=== PATIENT | male | born 1965 | race Hispanic/Latino ===

== ENCOUNTER 2017-05-25 04:36 | Inpatient (IN) | payer SELFPAY ==
--- NOTE | 2017-05-25 04:38 | ED PDOC ---
Psych Transfer Clearance - Clearance Statement Clearance Statement: Reviewed vital signs, lab results and transfer papers. Patient clinically stable for psychiatric admission.
[2017-05-25 04:43] VITALS: O2SAT 98; BMI 23.1
[2017-05-25] MEDS ORDERED: DiphenhydrAMINE 50 mg/ml Inj IM PRN (05:08)
[2017-05-25] MEDS ORDERED: Alum-Mag Hydrox-Simethicone Susp (30 mL) PO PRN (05:08)
[2017-05-25] MEDS ORDERED: Magnesium Hydroxide Susp 30 ml UD PO PRN (05:08)
--- NOTE | 2017-05-25 05:39 | PCM.BM ---
Treatment Plan Problems - Problems identified on initial assessmt Hopelessness/Helplessness Date Initiated: 05/25/17 Time Initiated: 05:37 Assessment reference: NA Status: Active Altered Sleep Patterns Date Initiated: 05/25/17 Time Initiated: 05:38 Assessment reference: NA Status: Active Treatment assets and liabiliti Patient Assests: cooperative, self-reliant, ADL independent, physically healthy Patient Liabilities: financial problems, poor support system, substance abuse, other (homeless) - Milieu Protocol Maintain good personal hygiene: daily Encourage regular showers, every shift Remind patient to perform daily oral care Conduct patient checks and document Observation sheet: Q15 minutes Maintain personal safety: every shift Educate patient to report safety concerns to staff, every shift Monitor environment for contraband/sharps Medication safety: Monitor for expected outcome, potential side effects: every shift, Assess barriers to learning: every shift, Assess readiness for medication education: daily
[2017-05-25 08:03] LABS: CHOLESTEROL 188 mg/dL (0-199)
--- NOTE | 2017-05-25 08:43 | PCM.PSYCH ---
Initial Psychiatric Evaluation - Initial Psychiatric Evaluation Type of Admission: Voluntary Legal Status: Capacity Chief Complaint (in patient's own words): "I am depressed." Patient's Reaction to Hospitalization: HPI: 52 yo male w/ history of heroin abuse, initally presented to [facility] w/ complaints of chest pain, medically cleared by [facility] and now psychiatrically admitted for worsening depression and anxiety in the context of chronic opioid abuse. Patient reports that he uses 1.5 grams ( approx 10 bags) of heroin (snorts) a day. He reports intermittent thoughts of suicide but denies current suicidal ideation/plan intent. +sleep and appetite disturbances +hopelessness. Denies AH/VH/paranoia/delusions/HI. PPHx: Denies history of psychiatric treatment or medications in the past PMHx: Denies acute medical issues FHx: Denies family history of mental illness SHx: +Daily Heroin abuse, +1/2 ppd cig, denies ETOH use, denies other illicit drug use. Completed 2 years of college. 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 Homeleess. From [place]. Current Medications: Active Medications Generic Name Dose Route Start Last Admin Trade Name Freq PRN Reason Stop Dose Admin Acetaminophen 650 mg 05/25/17 05:08 Tylenol 325mg Tab PO Q4 PRN Pain, moderate (4-7) Al Hydrox/Mg Hydrox/Simethicone 30 ml 05/25/17 05:08 Maalox Plus 30 Ml PO Q4 PRN Dyspepsia Clonidine HCl 0.1 mg 05/25/17 09:00 Catapres PO 05/28/17 09:01 Q8 KAILEE Diphenhydramine HCl 50 mg 05/25/17 05:08 Benadryl IM Q6 PRN Extrapyramidal S/S Unable PO Diphenhydramine HCl 50 mg 05/25/17 05:08 Benadryl PO Q6 PRN Extrapyramidal Symptoms Diphenhydramine HCl 50 mg 05/25/17 05:33 Benadryl PO HS PRN Sleep Haloperidol 5 mg 05/25/17 05:08 Haldol PO Q4 PRN Agitation Haloperidol Lactate 5 mg 05/25/17 05:08 Haldol IM Q4 PRN Agitation, Unable to Take PO Ibuprofen 800 mg 05/25/17 05:18 Motrin Tab PO 05/28/17 05:19 Q6 PRN Pain, severe (8-10) Loperamide HCl 2 mg 05/25/17 05:18 Imodium PO Q4H PRN Loose stools Lorazepam 2 mg 05/25/17 05:08 Ativan IM Q4 PRN Anxiety/Agitation,Unable PO Lorazepam 1 mg 05/25/17 05:15 Ativan PO Q4 PRN Agitation Magnesium Hydroxide 30 ml 05/25/17 05:08 Milk Of Magnesia PO HS PRN Constipation Multivitamins/Minerals 1 tab 05/25/17 09:00 Therapeutic-M Tab PO DAILY KAILEE Nicotine 1 patch 05/25/17 09:00 Nicoderm Cq TD DAILY KAILEE Sertraline HCl 50 mg 05/25/17 09:00 Zoloft PO DAILY KAILEE Past Psychiatric History - Past Psychiatric History Previous Treatment History: None Pertinent Medical Hx (Current Medical&Sleep Prob, Allergies): Allergies Allergy/AdvReac Type Severity Reaction Status Date / Time No Known Allergies Allergy Verified 05/25/17 04:38 Omeprazole 40 mg PO DAILY #30 capsule. 05/24/17 Review of Systems - Psychiatric Psychiatric: As Per HPI, Abnormal Sleep Pattern, Anxiety, Change in Appetite, Depression, Difficulty Concentrating, Mood Swings, Suicidal Ideation (Not current, but in the past) Mental Status Examination - Personal Presentation Personal Presentation: Looks stated age - Affect Affect: Constricted - Motor Activity Motor Activity: Calm - Reliability in Providing Information Reliability in Providing Information: Fair - Speech Speech: Organized - Mood Mood: Depressed, Anxious - Formal Thought Process Formal Thought Process: No Impairment - Hallucinations/Delusions Additional comments: Denies AH/VH/paranoia/delusions - Obsessions/Compulsions Obsessions: No Compulsions: No - Cognitive Functions Orientation: Person, Place, Situation, Time Sensorium: Alert Attention/Concentration: Attentive Judgement: Intact, as evidence by: Insight regarding need for hospitalization Memory: Recent intact, as evidence by: Ability to recall events of the day, Remote intact, as evidenced by: Abilit to recall sig. life events, Remote intact , as evidenced by: Ability to recall historical events - Risk Risk: Diminished functioning - Strength & Assets Inventory Strength & Assets Inventory: Cooperative - Limitations Limitations: Other (Homeless, Poverty) DSM 5 DX - DSM 5 DSM 5 Diagnosis: Substance Induced Mood Disorder, Opioid Use Disorder - Recommended/Plan of Treatment Treatment Recommendations and Plan of Treatment: Substance Induced Mood Disorder, Opioid Use Disorder -Admit to psychiatry -Medicine consult -Zoloft 50 mg PO Daily, r/b/se reviewed -Individual and group therapy -PRNs for Opioid w/drawal and Clonidine 0.1 mg Q8hr -Nicotine patch -Disposition planning -Psychoeducation re: chronic substance abuse Projected ELOS: 3-7 days Discharge Plan and Discharge Criteria: Discharge when psychiatrically stable - Smoking Cessation Smoking Cessation Initiated: Yes
[2017-05-25] MEDS: Multivitamin With Minerals Tab PO SCH (09:09)
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
[2017-05-26 06:24] LABS: BASO % 0.3 % (0.0-2.0); EOS % 0.3 % (0.0-4.0); HEMATOCRIT 40.6 % (35.0-51.0); LYMPH # 2.6 K/uL (1.0-4.3); LYMPH % 24.4 % (20.0-40.0); MEAN CELL VOLUME 91.3 fl (80.0-94.0); MEAN CORPUSCULAR HEMOGLOBIN 30.6 pg (27.0-31.0); MEAN CORPUSCULAR HGB CONC 33.5 g/dL (33.0-37.0); MEAN PLATELET VOLUME 7.9 fl (7.2-11.7); MONO # 0.6 K/uL (0.0-0.8); MONO % 5.8 % (0.0-10.0); NEUT # 7.5 K/uL (1.8-7.0); NEUT % 69.2 % (50.0-75.0); RED CELL DISTRIBUTION WIDTH 15.2 % (11.5-14.5); WHITE BLOOD COUNT 10.8 K/uL (4.8-10.8)
[2017-05-26 06:28] LABS: ALB/GLOB RATIO 1.3 (1.0-2.1); ALKALINE PHOSPHATASE 88 U/L (38-126); ALT/SGPT 105 U/L (21-72); AST/SGOT 30 U/L (17-59); BLOOD UREA NITROGEN 16 mg/dl (9-20); CALCIUM 9.4 mg/dL (8.4-10.2); CARBON DIOXIDE 26 mmol/L (22-30); CHLORIDE 107 mmol/L (98-107); GFR AFRICAN-AMERICAN > 60; GLUCOSE,RANDOM 109 mg/dL (75-110); POTASSIUM 4.2 MMOL/L (3.6-5.0); SODIUM 141 mmol/l (132-148); TOTAL PROTEIN 6.7 G/DL (6.3-8.2)
[2017-05-26 06:53] LABS: T4 9.97 ug/dl (5.5-11.0)
[2017-05-26 07:06] LABS: THYROID STIMULATING HORMONE 0.03 mIU/ML (0.46-4.68)
[2017-05-26] MEDS: Multivitamin With Minerals Tab PO SCH (08:17)
[2017-05-26 08:26] VITALS: BP 127/87; PULSE 90
[2017-05-26 09:50] VITALS: RESP 16; TEMP 97.9
== END 2017-05-26 11:00 | disposition home or self-care (01) | DRG 897 ==
LOC: H.ER 04:36 → H.ERHOLD 04:38 → H.PSYCH 04:56
PROVIDERS: ADMIT Psychiatry & Neurology Psychiatry; ATTEND Psychiatry & Neurology Psychiatry
DX: F11.14 Opioid abuse with opioid-induced mood disorder (principal); R45.851 Suicidal ideations; F32.9 Major depressive disorder, single episode, unspecified; F41.9 Anxiety disorder, unspecified; J45.909 Unspecified asthma, uncomplicated; Z87.891 Personal history of nicotine dependence; R07.9 Chest pain, unspecified; F17.210 Nicotine dependence, cigarettes, uncomplicated

== ENCOUNTER 2017-07-18 12:11 | Emergency (ER) | payer MEDICAID ==
[2017-07-18 12:12] VITALS: BMI 23.0
[2017-07-18 12:22] VITALS: BP 117/73; PULSE 86; RESP 16; TEMP 99.3; O2SAT 100
--- NOTE | 2017-07-18 13:00 | ED PDOC ---
HPI: CCC, URI, Sore Throat Time Seen by Provider: 07/18/17 12:16 Chief Complaint (Nursing): Flu-like Symptoms Chief Complaint (Provider): cough History Per: Patient History/Exam Limitations: no limitations Onset/Duration Of Symptoms: Days (x5) Current Symptoms Are (Timing): Still Present Additional Complaint(s): 52 year old male with previous medical history of asthma, who presents to the emergency department with a complaint of productive cough associated with fever , nasal congestion and shortness of breath ongoing for 5 days. Patient stated he took Advil, allergy medications and nasal sprays over the counter for relief. PMD: none provided Past Medical History Reviewed: Historical Data, Nursing Documentation, Vital Signs Vital Signs: Last Vital Signs Temp 99.3 F 07/18/17 12:21 Pulse 86 07/18/17 12:21 Resp 16 07/18/17 12:21 BP 117/73 07/18/17 12:21 Pulse Ox 100 07/18/17 13:12 - Medical History PMH: Anxiety, Asthma, Depression Denies: Diabetes, Hepatitis, HIV, HTN, Chronic Kidney Disease, Seizures, Sexually Transmitted Disease - Surgical History Surgical History: No Surg Hx - Family History Family History: States: Unknown Family Hx - Living Arrangements Living Arrangements: With Family - Social History Current smoker - smoking cessation education provided: Yes Alcohol: None Drugs: Other (heroin) - Immunization History Hx Tetanus Toxoid Vaccination: No Hx Influenza Vaccination: No Hx Pneumococcal Vaccination: No - Home Medications Home Medications: Ambulatory Orders Medication Instructions Recorded Albuterol HFA [Ventolin HFA 90 1 puff IH BID PRN #1 unit 07/18/17 mcg/actuation (8 g)] Azithromycin [Zithromax] 250 mg PO DAILY #6 tab 07/18/17 - Allergies Allergies/Adverse Reactions: Allergies Allergy/AdvReac Type Severity Reaction Status Date / Time No Known Allergies Allergy Verified 06/05/17 19:59 Review of Systems ROS Statement: Except As Marked, All Systems Reviewed And Found Negative Constitutional: Positive for: Fever. Negative for: Chills ENT: Positive for: Nose Congestion Respiratory: Positive for: Cough, Shortness of Breath, Sputum Physical Exam - Reviewed Nursing Documentation Reviewed: Yes Vital Signs Reviewed: Yes - Physical Exam Appears: Positive for: Well, Non-toxic, No Acute Distress Head Exam: Positive for: ATRAUMATIC, NORMAL INSPECTION, NORMOCEPHALIC Skin: Positive for: Normal Color Eye Exam: Positive for: Normal appearance ENT: Positive for: Normal ENT Inspection Neck: Positive for: Normal Cardiovascular/Chest: Positive for: Regular Rate, Rhythm Respiratory: Positive for: Wheezing (diffuse and expiratory). Negative for: Normal Breath Sounds, Decreased Breath Sounds, Respiratory Distress Back: Positive for: Normal Inspection Extremity: Positive for: Normal ROM Neurologic/Psych: Positive for: Alert, Oriented - ECG O2 Sat by Pulse Oximetry: 100 (RA) Pulse Ox Interpretation: Normal Medical Decision Making Medical Decision Making: Initial Impression: Bronchitis Initial Plan: * Duoneb 3ml INH Scribe Attestation: Documented by Yahaira Marti, acting as a scribe for Priscilla Dow PA-C. Provider Scribe Attestation: All medical record entries made by the Scribe were at my direction and personally dictated by me. I have reviewed the chart and agree that the record accurately reflects my personal performance of the history, physical exam, medical decision making, and the department course for this patient. I have also personally directed, reviewed, and agree with the discharge instructions and disposition. Disposition - Clinical Impression Clinical Impression: Acute bronchitis - Patient ED Disposition Is Patient to be Admitted: No Counseled Patient/Family Regarding: Diagnosis, Need For Followup, Rx Given - Disposition Disposition: Routine/Home Disposition Time: 13:36 Condition: GOOD Prescriptions: Albuterol HFA [Ventolin HFA 90 mcg/actuation (8 g)] 1 puff IH BID PRN #1 unit PRN Reason: Wheezing Azithromycin [Zithromax] 250 mg PO DAILY #6 tab Instructions: Acute Bronchitis (ED) Forms: ES[facility] (Niuean)
[2017-07-18] MEDS ORDERED: Albuterol-Ipratrop 3 mg / 0.5 (3 ml) UD INH STA (13:07)
== END 2017-07-18 13:43 | disposition home or self-care (01) ==
LOC: H.ER 12:11
DX: J20.9 Acute bronchitis, unspecified (principal); F17.200 Nicotine dependence, unspecified, uncomplicated; F32.9 Major depressive disorder, single episode, unspecified; F41.9 Anxiety disorder, unspecified; J45.909 Unspecified asthma, uncomplicated

== ENCOUNTER 2017-07-22 17:59 | Inpatient (IN) | payer SELFPAY ==
[2017-07-22 17:59] VITALS: BMI 23.0
[2017-07-22] MEDS ORDERED: Piperacillin/Tazobact 3.375 GM in Sodium Chloride 0.9% 100 ML IVPB STA (19:47)
--- NOTE | 2017-07-22 19:55 | ED PDOC ---
HPI: Wound Care - HPI Time Seen by Provider: 07/22/17 19:38 Chief Complaint (Nursing): Wound Check Chief Complaint (Provider): Wound Check History Per: Patient Exam Limitations: no limitations Onset/Duration Of Symptoms: Days (x 6) Current Symptoms Are (Timing): Still Present Location Of Injury: Left: Arm Quality Of Symptoms: Painful Additional Complaint(s): Yohan Ya is a 52-year-old male with a history of IV drug abuse who presents to the ER for wound check of abscess to the left antecubital region. Patient was admitted at [facility] on 07/19/17 for cellulitis and pneumonia, and underwent I&D and was receiving IV antibiotics. He signed out AMA earlier today because he states he feared losing his job. Patient is now returning for admission. He denies any fever or chills. Patient states he has moderate pain radiating up and down the left arm. PMD: Provider YEIMY Past Medical History Reviewed: Historical Data, Nursing Documentation, Vital Signs Vital Signs: Last Vital Signs Temp 97.8 F 07/22/17 19:10 Pulse 71 07/22/17 19:10 Resp 16 07/22/17 19:10 BP 102/63 07/22/17 19:10 Pulse Ox 100 07/22/17 19:10 - Medical History PMH: Anxiety, Asthma, Depression Denies: Diabetes, Hepatitis, HIV, HTN, Chronic Kidney Disease, Seizures, Sexually Transmitted Disease - Surgical History Surgical History: No Surg Hx - Family History Family History: States: Unknown Family Hx - Social History Current smoker - smoking cessation education provided: Yes Alcohol: None Drugs: Opiates - Immunization History Hx Tetanus Toxoid Vaccination: No Hx Influenza Vaccination: No Hx Pneumococcal Vaccination: No - Home Medications Home Medications: Ambulatory Orders Medication Instructions Recorded Albuterol HFA [Ventolin HFA 90 1 puff IH BID PRN #1 unit 07/18/17 mcg/actuation (8 g)] Azithromycin [Zithromax] 250 mg PO DAILY #6 tab 07/18/17 Amoxicillin/Clavulanate [Augmentin 1 tab PO BID 7 Days #14 tab 07/22/17 875 MG-125 MG] Doxycycline Hyclate 100 mg PO BID 7 Days #14 capsule 07/22/17 - Allergies Allergies/Adverse Reactions: Allergies Allergy/AdvReac Type Severity Reaction Status Date / Time No Known Allergies Allergy Verified 07/22/17 19:10 Review of Systems ROS Statement: Except As Marked, All Systems Reviewed And Found Negative Constitutional: Negative for: Fever, Chills Musculoskeletal: Positive for: Arm Pain (Left) Skin: Positive for: Other (abscess to left antecubital region) Physical Exam - Reviewed Nursing Documentation Reviewed: Yes Vital Signs Reviewed: Yes - Physical Exam Appears: Positive for: Non-toxic, No Acute Distress Head Exam: Positive for: ATRAUMATIC, NORMOCEPHALIC Skin: Positive for: Normal Color, Warm, Dry Eye Exam: Positive for: EOMI, Normal appearance, PERRL Neck: Positive for: Normal, Painless ROM Cardiovascular/Chest: Positive for: Regular Rate, Rhythm. Negative for: Murmur Respiratory: Positive for: Normal Breath Sounds. Negative for: Accessory Muscle Use, Respiratory Distress Pulses-Radial (L): 2+ Pulses-Radial (R): 2+ Extremity: Positive for: Normal ROM, Capillary Refill (< 2 sec), Other (Left arm with packed wound at antecubital region, minimal erythema noted) Neurologic/Psych: Positive for: Alert, Oriented (x3) - Laboratory Results Result Diagrams: 07/22/17 20:10 07/22/17 21:34 - ECG O2 Sat by Pulse Oximetry: 100 (RA) Pulse Ox Interpretation: Normal - Progress ED Course And Treament: CXR: HAZY RLL NOTED Medical Decision Making Medical Decision Making: Reviewed records from ER visit and admission to [facility] 07/19 - 07/22: CXR taken 07/19/17: FINDINGS: LUNGS: There is a patchy infiltrate at the right lung base suspicious for pneumonia PLEURA: No significant pleural effusion identified, no pneumothorax apparent. CARDIOVASCULAR: Normal. OSSEOUS STRUCTURES: No significant abnormalities. VISUALIZED UPPER ABDOMEN: Normal. OTHER FINDINGS: None. IMPRESSION: There is a patchy infiltrate at the right lung base suspicious for pneumonia Soft Tissue US taken 07/21/17: FINDINGS: There is an ovoid heterogeneous hypoechoic soft tissue mass/ collection in the left antecubital fossa. There is vascularity demonstrated within this mass. There is extensive peripheral hypervascularity. The findings are strongly suggestive of a phlegmon. Given the presence of internal vascularity, this does not represent a complex fluid collection at this time. The overall dimensions are 4.8 x 1.5 by 2.5 cm. There is no additional abnormality demonstrated. IMPRESSION: 4.8 cm complex heterogeneous hypoechoic mass with peripheral hypervascularity but some demonstrable internal vascularity, most likely a phlegmon. Time: 19:47 Impression: 52 y/o male with abscess to left antecubital region and pneumonia Initial Plan: * VBG * BMP * CBC w/ differential * Blood culture * Repeat Chest X-Ray * IV Vancomycin and Zosyn * Reevaluation 21:22 Patient will be hospitalized as observation, at Med/Surg, under the service of Dr. Garcia. Scribe Attestation: Documented by Winifred Martin, acting as a scribe for Bo Roberts PA-C Provider Scribe Attestation: All medical record entries made by the Scribe were at my direction and personally dictated by me. I have reviewed the chart and agree that the record accurately reflects my personal performance of the history, physical exam, medical decision making, and the department course for this patient. I have also personally directed, reviewed, and agree with the discharge instructions and disposition. Disposition - Clinical Impression Clinical Impression: Abscess, Pneumonia - Patient ED Disposition Is Patient to be Admitted: Yes - Disposition Disposition: Transfer of Care (hospitalized) Disposition Time: :22 Condition: FAIR - Pt Status Changed To: Hospital Disposition Of: Observation
[2017-07-22 20:16] LABS: VENOUS BLOOD GAS BASE EXCESS -0.8 mmol/L (0.0-2.0); VENOUS BLOOD GAS PCO2 44 mmHg (40-60); VENOUS BLOOD PH 7.36 (7.32-7.43)
[2017-07-22 20:25] LABS: BASO # 0.1 K/uL (0.0-0.2); BASO % 0.6 % (0.0-2.0); EOS # 0.1 K/uL (0.0-0.7); EOS % 0.6 % (0.0-4.0); LYMPH % 16.8 % (20.0-40.0); MEAN CELL VOLUME 91.4 fl (80.0-94.0); MEAN CORPUSCULAR HEMOGLOBIN 30.3 pg (27.0-31.0); MEAN CORPUSCULAR HGB CONC 33.1 g/dL (33.0-37.0); MEAN PLATELET VOLUME 8.2 fl (7.2-11.7); MONO # 0.7 K/uL (0.0-0.8); MONO % 5.5 % (0.0-10.0); NEUT % 76.5 % (50.0-75.0); RED CELL DISTRIBUTION WIDTH 15.3 % (11.5-14.5); WHITE BLOOD COUNT 11.8 K/uL (4.8-10.8)
[2017-07-22 21:54] LABS: BLOOD UREA NITROGEN 12 mg/dl (9-20); CALCIUM 8.8 mg/dL (8.4-10.2); CARBON DIOXIDE 22 mmol/L (22-30); CHLORIDE 110 mmol/L (98-107); GFR AFRICAN-AMERICAN > 60; GLUCOSE,RANDOM 93 mg/dL (75-110); POTASSIUM 4.3 MMOL/L (3.6-5.0); SODIUM 142 mmol/l (132-148)
[2017-07-23] MEDS ORDERED: HYDROmorphone 0.5 mg/0.5 ml ISec IVP PRN (06:14)
[2017-07-23] MEDS ORDERED: Albuterol-Ipratrop 3 mg / 0.5 (3 ml) UD INH PRN (06:17)
--- NOTE | 2017-07-23 08:38 | CP.PCM.HP ---
History of Present Illness - History of Present Illness History of Present Illness: CC: Pain and swelling Left arm History of Present Illness: A 52-year-old male with a history of IV drug abuse who presents to the ER for wound check of abscess to the left antecubital region. Patient was admitted at [facility] on 07/19/17 for cellulitis and pneumonia, and underwent I &D and was receiving IV antibiotics. He signed out yesterday because he states he feared losing his job. Patient is now returning for admission. He denies any fever or chills. Patient states he has moderate pain radiating up and down the left arm. Present on Admission - Present on Admission Any Indicators Present on Admission: No History of DVT/PE: No History of Uncontrolled Diabetes: No Urinary Catheter: No Decubitus Ulcer Present: No Review of Systems - Review of Systems All systems: reviewed and no additional remarkable complaints except Past Patient History - Infectious Disease Hx of Infectious Diseases: None - Past Medical History & Family History Past Medical History?: Yes Past Family History: Reviewed and not pertinent - Past Social History Smoking Status: Heavy Smoker > 10 Cigarettes Daily Alcohol: Social Drugs: Opiates - CARDIAC Hx Cardiac Disorders: No Hx Hypertension: No - PULMONARY Hx Asthma: Yes - NEUROLOGICAL Hx Neurological Disorder: No Hx Seizures: No - HEENT Hx HEENT Problems: No - RENAL Hx Chronic Kidney Disease: No - ENDOCRINE/METABOLIC Hx Endocrine Disorders: No - HEMATOLOGICAL/ONCOLOGICAL Hx Blood Disorders: No Hx AIDS: No Hx Human Immunodeficiency Virus (HIV): No - INTEGUMENTARY Hx Dermatological Problems: No - MUSCULOSKELETAL/RHEUMATOLOGICAL Hx Musculoskeletal Disorders: No Hx Falls: No - GASTROINTESTINAL Hx Gastrointestinal Disorders: No - GENITOURINARY/GYNECOLOGICAL Hx Genitourinary Disorders: No Hx Sexually Transmitted Disorders: No - PSYCHIATRIC Hx Anxiety: Yes Hx Depression: Yes Hx Substance Use: No - SURGICAL HISTORY Hx Surgeries: No - ANESTHESIA Hx Anesthesia: No Meds Allergies/Adverse Reactions: Allergies Allergy/AdvReac Type Severity Reaction Status Date / Time No Known Allergies Allergy Verified 07/22/17 19:10 Physical Exam - Constitutional Appears: Well, In Acute Distress - Head Exam Head Exam: ATRAUMATIC, NORMAL INSPECTION, NORMOCEPHALIC - Eye Exam Eye Exam: EOMI, Normal appearance, PERRL Pupil Exam: NORMAL ACCOMODATION, PERRL - ENT Exam ENT Exam: Mucous Membranes Moist, Normal Exam - Neck Exam Neck exam: Positive for: Normal Inspection - Respiratory Exam Respiratory Exam: Clear to Auscultation Bilateral, NORMAL BREATHING PATTERN. absent: Rales, Wheezes - Cardiovascular Exam Cardiovascular Exam: REGULAR RHYTHM, +S1, +S2 - GI/Abdominal Exam GI & Abdominal Exam: Normal Bowel Sounds, Soft. absent: Tenderness - Extremities Exam Extremities exam: Positive for: normal capillary refill Additional comments: Left Antecubital swelling and tender with I&D site Packed. Erythema and tenderness. - Back Exam Back exam: NORMAL INSPECTION - Neurological Exam Neurological exam: Alert, CN II-XII Intact, Normal Gait, Oriented x3, Reflexes Normal - Psychiatric Exam Psychiatric exam: Normal Affect, Normal Mood - Skin Skin Exam: Dry, Intact, Normal Color, Warm Results - Vital Signs Recent Vital Signs: Last Vital Signs Temp 98.2 F 07/23/17 08:14 Pulse 61 07/23/17 08:14 Resp 20 07/23/17 08:14 BP 103/61 07/23/17 08:14 Pulse Ox 94 L 07/23/17 08:14 - Labs Result Diagrams: 07/22/17 20:10 07/22/17 21:34 Labs: Laboratory Results - last 24 hr 07/22/17 07/22/17 07/22/17 20:10 20:10 21:34 WBC 11.8 H RBC 4.27 L Hgb 12.9 Hct 39.0 MCV 91.4 MCH 30.3 MCHC 33.1 RDW 15.3 H Plt Count 299 MPV 8.2 Neut % (Auto) 76.5 H Lymph % (Auto) 16.8 L [place] % (Auto) 5.5 Eos % (Auto) 0.6 Baso % (Auto) 0.6 Neut # 9.0 H Lymph # 2.0 Evans # 0.7 Eos # 0.1 Baso # 0.1 pO2 70 H VBG pH 7.36 VBG pCO2 44 VBG HCO3 24.2 VBG Total CO2 26.3 VBG O2 Sat (Calc) 95.1 H VBG Base Excess -0.8 L VBG Potassium 8.3 H* Sodium 135.0 142 Chloride 110.0 H 110 H Glucose 101 Lactate 1.2 FiO2 21.0 Crit Value Called To Dr jeffery kaplan Crit Value Called By Rt Crit Value Read Back Y Blood Gas Notified Time 2014 Potassium 4.3 Carbon Dioxide 22 Anion Gap 14 BUN 12 Creatinine 0.7 L Est GFR ( Amer) > 60 Est GFR (Non-Af Amer) > 60 Random Glucose 93 Calcium 8.8 Venous Blood Potassium 8.3 H* - EKG Data EKG Interpreted by: Myself EKG shows normal: Sinus rhythm, [place], Intervals, QRS complexes, ST-T waves Rate: Normal - Imaging and Cardiology Chest x-ray Status: Report reviewed by me Additional comment: Right LL Infiltrates. Assessment & Plan (1) Abscess Assessment and Plan: S/P I&D at [facility], and Packing still inplace IVD Use ?PNA IVF IV Vancomycin/Cefepime Pain medication PRN TTE R/o Vegetation ID and Surgery Consult Status: Acute
[2017-07-23] MEDS: Pantoprazole 40 mg EC Tab PO SCH (09:50)
--- NOTE | 2017-07-23 10:29 | RAD ---
HISTORY: pneumonia COMPARISON: No prior. TECHNIQUE: Chest PA and lateral FINDINGS: LUNGS: Right lower lobe infiltrate. PLEURA: No significant pleural effusion identified. No pneumothorax apparent. CARDIOVASCULAR: Normal. OSSEOUS STRUCTURES: No significant abnormalities. VISUALIZED UPPER ABDOMEN: Normal. OTHER FINDINGS: None. IMPRESSION: Right lower lobe infiltrate.
[2017-07-23] MEDS: Cefepime 1 GM in Sodium Chloride 0.9% 100 ML IVPB SCH ×2 (10:56→20:55)
--- NOTE | 2017-07-23 11:13 | CP.PCM.CON ---
<Bonnie Price - Last Filed: 07/23/17 13:21> History of Present Illness - History of Present Illness History of Present Illness: General surgery consult note for Dr. Mya Price, PGY-1 Pt S & E at bedside. 52M w/PMH sig for IVDU consulted for cellulitis s/p I & D one day prior to admission. Pt recently at [facility] with bedside I & D on 07/22 with small amount of packing placed. Pt then AMA'd from facility. Pt presents to [facility] for evaluation of wound, wound care and pain control. Pt states he had a subjective fever overnight, could not afford PO Abx and wanted to have the wound cared for in the hospital. Denies other complaints. PMH: Hep C, IVDU, asthma PSH: Bedside I & D at [facility] (07/22) w/packing placed All: NKDA SH: Admits to tobacco #4-5 cigarettes daily x 20 yrs, admits to heroin use, denies ETOH use Review of Systems - Review of Systems All systems: reviewed and no additional remarkable complaints except - Constitutional Constitutional: Fever (subjective). absent: Chills - Cardiovascular Cardiovascular: absent: Chest Pain - Respiratory Respiratory: absent: Cough - Gastrointestinal Gastrointestinal: absent: Nausea, Vomiting - Integumentary Integumentary: Skin Pain, Swelling, Wounds - Psychiatric Psychiatric: absent: Change in Appetite Past Patient History - Infectious Disease Hx of Infectious Diseases: None - Past Medical History & Family History Past Medical History?: Yes - Past Social History Smoking Status: Heavy Smoker > 10 Cigarettes Daily - CARDIAC Hx Cardiac Disorders: No Hx Hypertension: No - PULMONARY Hx Asthma: Yes - NEUROLOGICAL Hx Neurological Disorder: No Hx Seizures: No - HEENT Hx HEENT Problems: No - RENAL Hx Chronic Kidney Disease: No - ENDOCRINE/METABOLIC Hx Endocrine Disorders: No - HEMATOLOGICAL/ONCOLOGICAL Hx Blood Disorders: No Hx AIDS: No Hx Human Immunodeficiency Virus (HIV): No - INTEGUMENTARY Hx Dermatological Problems: No - MUSCULOSKELETAL/RHEUMATOLOGICAL Hx Musculoskeletal Disorders: No Hx Falls: No - GASTROINTESTINAL Hx Gastrointestinal Disorders: No - GENITOURINARY/GYNECOLOGICAL Hx Genitourinary Disorders: No Hx Sexually Transmitted Disorders: No - PSYCHIATRIC Hx Anxiety: Yes Hx Depression: Yes Hx Substance Use: No - SURGICAL HISTORY Hx Surgeries: No - ANESTHESIA Hx Anesthesia: No Meds Allergies/Adverse Reactions: Allergies Allergy/AdvReac Type Severity Reaction Status Date / Time No Known Allergies Allergy Verified 07/22/17 19:10 - Medications Medications: Current Medications Albuterol/Ipratropium (Duoneb 3 Mg/0.5 Mg (3 Ml) Ud) 3 ml INH RQ6 PRN PRN Reason: Shortness of Breath Enoxaparin Sodium (Lovenox) 40 mg SC DAILY KAILEE PRN Reason: Protocol Hydromorphone HCl (Dilaudid) 1 mg IVP Q4 PRN PRN Reason: Pain, severe (8-10) Last Admin: 07/23/17 09:50 Dose: 1 mg Cefepime HCl 1 gm/ Sodium (Chloride) 100 mls @ 100 mls/hr IVPB Q12 KAILEE PRN Reason: Protocol Last Admin: 07/23/17 10:56 Dose: 100 mls/hr Vancomycin HCl 1 gm/ Sodium (Chloride) 250 mls @ 166.667 mls/hr IVPB Q12 KAILEE PRN Reason: Protocol Ketorolac Tromethamine (Toradol) 30 mg IVP Q6 PRN PRN Reason: Pain, moderate (4-7) Pantoprazole Sodium (Protonix Ec Tab) 40 mg PO DAILY [facility] Last Admin: 07/23/17 09:50 Dose: 40 mg Physical Exam - Constitutional Appears: Non-toxic, No Acute Distress - Head Exam Head Exam: ATRAUMATIC, NORMAL INSPECTION, NORMOCEPHALIC - Eye Exam Eye Exam: EOMI, Normal appearance - ENT Exam ENT Exam: Mucous Membranes Moist, Normal Exam - Neck Exam Neck exam: Positive for: Full Rom - Respiratory Exam Respiratory Exam: NORMAL BREATHING PATTERN - Cardiovascular Exam Cardiovascular Exam: REGULAR RHYTHM, +S1, +S2 - GI/Abdominal Exam GI & Abdominal Exam: Soft. absent: Tenderness - Extremities Exam Extremities exam: Positive for: tenderness. Negative for: normal inspection ( Left antecubital fossa with small incision, induration, no fluctuance, some erythema, some tenderness upon palpation. Dressing with scant serous strike through. ) - Neurological Exam Neurological exam: Alert, CN II-XII Intact, Oriented x3 - Psychiatric Exam Psychiatric exam: Normal Affect, Normal Mood - Skin Skin Exam: Dry, Warm Results - Vital Signs Recent Vital Signs: Last Vital Signs Temp 98.2 F 07/23/17 08:14 Pulse 61 07/23/17 08:14 Resp 20 07/23/17 08:14 BP 103/61 07/23/17 08:14 Pulse Ox 94 L 07/23/17 08:14 - Labs Result Diagrams: 07/22/17 20:10 07/22/17 21:34 Labs: Laboratory Results - last 24 hr 07/22/17 07/22/17 07/22/17 20:10 20:10 21:34 WBC 11.8 H RBC 4.27 L Hgb 12.9 Hct 39.0 MCV 91.4 MCH 30.3 MCHC 33.1 RDW 15.3 H Plt Count 299 MPV 8.2 Neut % (Auto) 76.5 H Lymph % (Auto) 16.8 L [place] % (Auto) 5.5 Eos % (Auto) 0.6 Baso % (Auto) 0.6 Neut # 9.0 H Lymph # 2.0 [place] # 0.7 Eos # 0.1 Baso # 0.1 pO2 70 H VBG pH 7.36 VBG pCO2 44 VBG HCO3 24.2 VBG Total CO2 26.3 VBG O2 Sat (Calc) 95.1 H VBG Base Excess -0.8 L VBG Potassium 8.3 H* Sodium 135.0 142 Chloride 110.0 H 110 H Glucose 101 Lactate 1.2 FiO2 21.0 Crit Value Called To Dr jeffery kaplan Crit Value Called By Rt Crit Value Read Back Y Blood Gas Notified Time 2014 Potassium 4.3 Carbon Dioxide 22 Anion Gap 14 BUN 12 Creatinine 0.7 L Est GFR ( Amer) > 60 Est GFR (Non-Af Amer) > 60 Random Glucose 93 Calcium 8.8 Venous Blood Potassium 8.3 H* Assessment & Plan - Assessment and Plan (Free Text) Assessment: 52M w/PMH sig for IVDU s/p I & D POD#1 consulted for wound care/assessment, currently stable. Plan: Cont Abx Packing removed Dressing changed Pain control Warm compresses to area No surgical intervention at this time Thank you for this consult Please re-consult as needed COLE attending Dee, PGY-1 - Date & Time Date: 07/23/17 Time: 11:15 <[address] - Last Filed: 07/23/17 13:26> History of Present Illness - History of Present Illness History of Present Illness: Patient was seen and examined at the bedside. Agree with resident's note above. Meds - Medications Medications: Current Medications Albuterol/Ipratropium (Duoneb 3 Mg/0.5 Mg (3 Ml) Ud) 3 ml INH RQ6 PRN PRN Reason: Shortness of Breath Enoxaparin Sodium (Lovenox) 40 mg SC DAILY KAILEE PRN Reason: Protocol Last Admin: 07/23/17 11:19 Dose: 40 mg Hydromorphone HCl (Dilaudid) 1 mg IVP Q4 PRN PRN Reason: Pain, severe (8-10) Last Admin: 07/23/17 09:50 Dose: 1 mg Cefepime HCl 1 gm/ Sodium (Chloride) 100 mls @ 100 mls/hr IVPB Q12 KAILEE PRN Reason: Protocol Last Admin: 07/23/17 10:56 Dose: 100 mls/hr Vancomycin HCl 1 gm/ Sodium (Chloride) 250 mls @ 166.667 mls/hr IVPB Q12 KAILEE PRN Reason: Protocol Last Admin: 07/23/17 12:21 Dose: 166.667 mls/hr Ketorolac Tromethamine (Toradol) 30 mg IVP Q6 PRN PRN Reason: Pain, moderate (4-7) Pantoprazole Sodium (Protonix Ec Tab) 40 mg PO DAILY [facility] Last Admin: 07/23/17 09:50 Dose: 40 mg Results - Vital Signs Recent Vital Signs: Last Vital Signs Temp 98.2 F 07/23/17 08:14 Pulse 61 07/23/17 08:14 Resp 20 07/23/17 08:14 BP 103/61 07/23/17 08:14 Pulse Ox 94 L 07/23/17 08:14 - Labs Result Diagrams: 07/22/17 20:10 07/22/17 21:34 Labs: Laboratory Results - last 24 hr 07/22/17 07/22/17 07/22/17 20:10 20:10 21:34 WBC 11.8 H RBC 4.27 L Hgb 12.9 Hct 39.0 MCV 91.4 MCH 30.3 MCHC 33.1 RDW 15.3 H Plt Count 299 MPV 8.2 Neut % (Auto) 76.5 H Lymph % (Auto) 16.8 L [place] % (Auto) 5.5 Eos % (Auto) 0.6 Baso % (Auto) 0.6 Neut # 9.0 H Lymph # 2.0 [place] # 0.7 Eos # 0.1 Baso # 0.1 pO2 70 H VBG pH 7.36 VBG pCO2 44 VBG HCO3 24.2 VBG Total CO2 26.3 VBG O2 Sat (Calc) 95.1 H VBG Base Excess -0.8 L VBG Potassium 8.3 H* Sodium 135.0 142 Chloride 110.0 H 110 H Glucose 101 Lactate 1.2 FiO2 21.0 Crit Value Called To Dr jeffery kaplan Crit Value Called By Rt Crit Value Read Back Y Blood Gas Notified Time 2014 Potassium 4.3 Carbon Dioxide 22 Anion Gap 14 BUN 12 Creatinine 0.7 L Est GFR ( Amer) > 60 Est GFR (Non-Af Amer) > 60 Random Glucose 93 Calcium 8.8 Venous Blood Potassium 8.3 H* Assessment & Plan - Assessment and Plan (Free Text) Plan: - No further general surgery intervention at present time - General surgery will sign off - Please re-consult as needed
[2017-07-23] MEDS: Enoxaparin 40 mg Syringe SC SCH (11:19)
--- NOTE | 2017-07-23 11:58 | CP.PCM.CON ---
History of Present Illness - History of Present Illness History of Present Illness: Infectious Disease Consultation Note- asked to see this patient at the request of for left arm abscess. HPI- medical history obtained mostly from the chart ( patient denies any PMH ) as per medical chart notes pt. has h/o IVDU and Hep C and was at [facility] with left forearm abscess s/p I and D there and small packing was placed and apparently pt. signed out AMA from there and now presents to [facility] for wound care and antibiotics and pain control. when I asked him about any injury to the area he denies it and just states got infection in left forearm. Denies any fever or chills. He denies ever having any other skin infections. PMH: Hep C, IVDU, asthma PSH: Bedside I & D at [facility] (07/22) w/packing placed All: NKDA SH: Admits to tobacco #4-5 cigarettes daily x 20 yrs, heroin use, denies ETOH use Review of Systems - Review of Systems Review of Systems: ROS- denies any fever or chills, denies any cough, denies any sob, denies any chest pain, denies any abd. pain, denies any n/v, denies any diarrhea, denies any dysurea c/o left forearm pain and redness and swelling Past Patient History - Infectious Disease Hx of Infectious Diseases: None - Past Medical History & Family History Past Medical History?: Yes - Past Social History Smoking Status: Heavy Smoker > 10 Cigarettes Daily - CARDIAC Hx Cardiac Disorders: No Hx Hypertension: No - PULMONARY Hx Asthma: Yes - NEUROLOGICAL Hx Neurological Disorder: No Hx Seizures: No - HEENT Hx HEENT Problems: No - RENAL Hx Chronic Kidney Disease: No - ENDOCRINE/METABOLIC Hx Endocrine Disorders: No - HEMATOLOGICAL/ONCOLOGICAL Hx Blood Disorders: No - INTEGUMENTARY Hx Dermatological Problems: No - MUSCULOSKELETAL/RHEUMATOLOGICAL Hx Musculoskeletal Disorders: No Hx Falls: No - GASTROINTESTINAL Hx Gastrointestinal Disorders: No - GENITOURINARY/GYNECOLOGICAL Hx Genitourinary Disorders: No Hx Sexually Transmitted Disorders: No - PSYCHIATRIC Hx Anxiety: Yes Hx Depression: Yes Hx Substance Use: No - SURGICAL HISTORY Hx Surgeries: No - ANESTHESIA Hx Anesthesia: No Meds Allergies/Adverse Reactions: Allergies Allergy/AdvReac Type Severity Reaction Status Date / Time No Known Allergies Allergy Verified 07/22/17 19:10 - Medications Medications: Current Medications Albuterol/Ipratropium (Duoneb 3 Mg/0.5 Mg (3 Ml) Ud) 3 ml INH RQ6 PRN PRN Reason: Shortness of Breath Enoxaparin Sodium (Lovenox) 40 mg SC DAILY KAILEE PRN Reason: Protocol Last Admin: 07/23/17 11:19 Dose: 40 mg Hydromorphone HCl (Dilaudid) 1 mg IVP Q4 PRN PRN Reason: Pain, severe (8-10) Last Admin: 07/23/17 09:50 Dose: 1 mg Cefepime HCl 1 gm/ Sodium (Chloride) 100 mls @ 100 mls/hr IVPB Q12 KAILEE PRN Reason: Protocol Last Admin: 07/23/17 10:56 Dose: 100 mls/hr Vancomycin HCl 1 gm/ Sodium (Chloride) 250 mls @ 166.667 mls/hr IVPB Q12 KAILEE PRN Reason: Protocol Ketorolac Tromethamine (Toradol) 30 mg IVP Q6 PRN PRN Reason: Pain, moderate (4-7) Pantoprazole Sodium (Protonix Ec Tab) 40 mg PO DAILY [facility] Last Admin: 07/23/17 09:50 Dose: 40 mg Physical Exam - Constitutional Appears: Non-toxic, No Acute Distress - Head Exam Head Exam: ATRAUMATIC - Eye Exam Eye Exam: EOMI, PERRL - ENT Exam ENT Exam: Normal Oropharynx - Neck Exam Neck exam: Positive for: Full Rom - Respiratory Exam Respiratory Exam: Clear to Auscultation Bilateral, NORMAL BREATHING PATTERN - Cardiovascular Exam Cardiovascular Exam: RRR, +S1, +S2 - GI/Abdominal Exam GI & Abdominal Exam: Normal Bowel Sounds, Soft Additional comments: NT, ND - Extremities Exam Additional comments: left forearm region with area of about 4 x 3 cm swelling, erythema central small opening ( I and D site) , no packing seen no pus seen + tenderness to touch can flex elbow w/o any limitation of ROM - Neurological Exam Neurological exam: Alert, Oriented x3 Results - Vital Signs Recent Vital Signs: Last Vital Signs Temp 98.2 F 07/23/17 08:14 Pulse 61 07/23/17 08:14 Resp 20 07/23/17 08:14 BP 103/61 07/23/17 08:14 Pulse Ox 94 L 07/23/17 08:14 - Labs Result Diagrams: 07/22/17 20:10 07/22/17 21:34 Labs: Laboratory Results - last 24 hr 07/22/17 07/22/17 07/22/17 20:10 20:10 21:34 WBC 11.8 H RBC 4.27 L Hgb 12.9 Hct 39.0 MCV 91.4 MCH 30.3 MCHC 33.1 RDW 15.3 H Plt Count 299 MPV 8.2 Neut % (Auto) 76.5 H Lymph % (Auto) 16.8 L [place] % (Auto) 5.5 Eos % (Auto) 0.6 Baso % (Auto) 0.6 Neut # 9.0 H Lymph # 2.0 [place] # 0.7 Eos # 0.1 Baso # 0.1 pO2 70 H VBG pH 7.36 VBG pCO2 44 VBG HCO3 24.2 VBG Total CO2 26.3 VBG O2 Sat (Calc) 95.1 H VBG Base Excess -0.8 L VBG Potassium 8.3 H* Sodium 135.0 142 Chloride 110.0 H 110 H Glucose 101 Lactate 1.2 FiO2 21.0 Crit Value Called To Dr jeffery kaplan Crit Value Called By Rt Crit Value Read Back Y Blood Gas Notified Time 2014 Potassium 4.3 Carbon Dioxide 22 Anion Gap 14 BUN 12 Creatinine 0.7 L Est GFR ( Amer) > 60 Est GFR (Non-Af Amer) > 60 Random Glucose 93 Calcium 8.8 Venous Blood Potassium 8.3 H* Microbiology 06/05/17 21:30 Blood Blood Culture - Final 06/05/17 21:30 Blood Gram Stain - Final NO GROWTH AFTER 5 DAYS TEST NOT PERFORMED 07/19/17 22:55 Blood Blood Culture - Preliminary 07/19/17 22:55 Blood NO GROWTH AFTER 3 DAYS 07/19/17 22:40 Blood Blood Culture - Preliminary 07/19/17 22:40 Blood NO GROWTH AFTER 3 DAYS Accession No. : [id number] Patient Name / ID : NIDA CHENG / [id number] Exam Date : 07/22/2017 19:47:57 ( Approved ) Study Comment : Sex / Age : M / 52Y Creator : roshni horton Dictator : Herminio Machado MD Dog Catcher : Nozzle Cement Sprayer Helper : Herminio Machado MD Approver2 : Report Date : 07/22/2017 19:56:50 My Comment : HISTORY: pneumonia COMPARISON: No prior. TECHNIQUE: Chest PA and lateral FINDINGS: LUNGS: Right lower lobe infiltrate. PLEURA: No significant pleural effusion identified. No pneumothorax apparent. CARDIOVASCULAR: Normal. OSSEOUS STRUCTURES: No significant abnormalities. VISUALIZED UPPER ABDOMEN: Normal. OTHER FINDINGS: None. IMPRESSION: Right lower lobe infiltrate. Assessment & Plan (1) Abscess Status: Acute (2) Opiate use Status: Acute - Assessment and Plan (Free Text) Assessment: A/P- 52 year old male with h/o IVDU , Hep C admitted with left forearm abscess that was recently I and D at [facility] . afebrile minimal leukocytosis. left forearm abscess with minimal surrounding cellulitis only. cxr- RLL infiltrtae as per report. Plan- check wound cx. check blood cx x 2 advise to continue with IV vancomycin that was already initiated by the primary team . keep trough <15. woul also advise to add zithromax to treat for CAP as well based on the cxr result. also advise to check for HIV ab. Thank you for allowing me to take part in the care of this patient.
[2017-07-24 06:33] LABS: HEMATOCRIT 38.1 % (35.0-51.0); MEAN CELL VOLUME 91.5 fl (80.0-94.0); MEAN CORPUSCULAR HEMOGLOBIN 30.6 pg (27.0-31.0); MEAN CORPUSCULAR HGB CONC 33.5 g/dL (33.0-37.0); RED CELL DISTRIBUTION WIDTH 14.4 % (11.5-14.5); WHITE BLOOD COUNT 7.6 K/uL (4.8-10.8)
[2017-07-24 06:58] LABS: BLOOD UREA NITROGEN 10 mg/dl (9-20); CALCIUM 8.8 mg/dL (8.4-10.2); CARBON DIOXIDE 28 mmol/L (22-30); CHLORIDE 108 mmol/L (98-107); GFR AFRICAN-AMERICAN > 60; GLUCOSE,RANDOM 107 mg/dL (75-110); POTASSIUM 4.4 MMOL/L (3.6-5.0); SODIUM 141 mmol/l (132-148)
[2017-07-24 07:59] VITALS: BP 121/75; PULSE 61; RESP 20; TEMP 98.5; O2SAT 96
[2017-07-24] MEDS: Cefepime 1 GM in Sodium Chloride 0.9% 100 ML IVPB SCH (08:38)
[2017-07-24] MEDS: Enoxaparin 40 mg Syringe SC SCH (08:38)
[2017-07-24] MEDS: Pantoprazole 40 mg EC Tab PO SCH (08:39)
== END 2017-07-24 10:15 | disposition left against medical advice (07) | DRG 602 ==
LOC: H.ER 17:59 → H.ERHOLD 21:22 → H.MEDSURG1 22:50 → OBSVTOIN 07-23 09:31
PROVIDERS: ADMIT Internal Medicine; ATTEND Internal Medicine
DX: L02.414 Cutaneous abscess of left upper limb (principal); J18.9 Pneumonia, unspecified organism; B19.20 Unspecified viral hepatitis C without hepatic coma; F11.90 Opioid use, unspecified, uncomplicated; F17.210 Nicotine dependence, cigarettes, uncomplicated; J45.909 Unspecified asthma, uncomplicated; F41.9 Anxiety disorder, unspecified; F32.9 Major depressive disorder, single episode, unspecified

== ENCOUNTER 2017-07-24 14:06 | Inpatient (IN) | payer MEDICAID ==
[2017-07-24 14:06] VITALS: BMI 23.0
[2017-07-24] MEDS ORDERED: Cefepime 1 GM in Sodium Chloride 0.9% 100 ML IVPB STA (14:57)
[2017-07-24] MEDS ORDERED: Azithromycin 500 MG in Sodium Chloride 0.9% 250 ML IVPB STA (14:58)
[2017-07-24 15:10] LABS: BASO % 0.2 % (0.0-2.0); EOS # 0.1 K/uL (0.0-0.7); EOS % 0.7 % (0.0-4.0); HEMATOCRIT 38.1 % (35.0-51.0); LYMPH # 2.5 K/uL (1.0-4.3); MEAN CELL VOLUME 91.8 fl (80.0-94.0); MEAN CORPUSCULAR HEMOGLOBIN 31.3 pg (27.0-31.0); MEAN CORPUSCULAR HGB CONC 34.1 g/dL (33.0-37.0); MEAN PLATELET VOLUME 7.6 fl (7.2-11.7); MONO # 0.4 K/uL (0.0-0.8); MONO % 3.9 % (0.0-10.0); NEUT % 70.2 % (50.0-75.0); RED CELL DISTRIBUTION WIDTH 14.6 % (11.5-14.5); WHITE BLOOD COUNT 9.9 K/uL (4.8-10.8)
[2017-07-24 15:21] LABS: VENOUS BLOOD GAS PCO2 47 mmHg (40-60); VENOUS BLOOD PH 7.38 (7.32-7.43)
[2017-07-24 15:40] LABS: ALKALINE PHOSPHATASE 90 U/L (38-126); ALT/SGPT 158 U/L (21-72); AST/SGOT 59 U/L (17-59); BILIRUBIN,TOTAL 0.3 mg/dl (0.2-1.3); BLOOD UREA NITROGEN 13 mg/dl (9-20); CARBON DIOXIDE 26 mmol/L (22-30); CHLORIDE 107 mmol/L (98-107); GFR AFRICAN-AMERICAN > 60; GLUCOSE,RANDOM 93 mg/dL (75-110); POTASSIUM 4.3 MMOL/L (3.6-5.0); SODIUM 142 mmol/l (132-148); TOTAL PROTEIN 7.2 G/DL (6.3-8.2)
--- NOTE | 2017-07-24 15:46 | ED PDOC ---
Upper Extremity Pain/Injury Time Seen by Provider: 07/24/17 14:20 Chief Complaint (Nursing): Upper Extremity Problem/Injury Chief Complaint (Provider): Upper Extremity Problem/Injury History Per: Patient History/Exam Limitations: no limitations Onset/Duration Of Symptoms: Days (x1) Current Symptoms Are (Timing): Still Present Additional Complaint(s): Yohan Ya is a 52 year old male with a past medical history of IV drug use , depression, anxiety, and asthma, who presents to the ED complaining of left arm pain x1 day. Patient was admitted to this facility yesterday due to a left arm abscess and pneumonia, but signed out AMA this morning, stating he had to leave for work reasons. Patient was also admitted to [facility] a week ago where he received an I&D, but signed out AMA. Denies fever, vomiting and diarrhea, but confirms purulent drainage. Patient was previously seen by Dr. Garcia. PMD: Non-[facility] Provider Past Medical History Reviewed: Historical Data, Nursing Documentation, Vital Signs Vital Signs: Last Vital Signs Temp 97 F L 07/24/17 15:27 Pulse 96 H 07/24/17 15:27 Resp 16 07/24/17 15:27 BP 96/75 L 07/24/17 15:27 Pulse Ox 98 07/24/17 14:08 - Medical History PMH: Anxiety, Asthma, Depression Denies: Diabetes, Hepatitis, HIV, HTN, Chronic Kidney Disease, Seizures, Sexually Transmitted Disease - Surgical History Surgical History: No Surg Hx - Family History Family History: States: Unknown Family Hx - Immunization History Hx Tetanus Toxoid Vaccination: No Hx Influenza Vaccination: No Hx Pneumococcal Vaccination: No - Home Medications Home Medications: Ambulatory Orders Medication Instructions Recorded Albuterol HFA [Ventolin HFA 90 1 puff IH BID PRN #1 unit 07/18/17 mcg/actuation (8 g)] Azithromycin [Zithromax] 250 mg PO DAILY #6 tab 07/18/17 Amoxicillin/Clavulanate [Augmentin 1 tab PO BID 7 Days #14 tab 07/22/17 875 MG-125 MG] Doxycycline Hyclate 100 mg PO BID 7 Days #14 capsule 07/22/17 Sulfamethoxazole/Trimethoprim 1 tab PO BID #20 tab 07/26/17 [Bactrim DS 800 mg-160 mg] - Allergies Allergies/Adverse Reactions: Allergies Allergy/AdvReac Type Severity Reaction Status Date / Time No Known Allergies Allergy Verified 07/22/17 19:10 Review of Systems ROS Statement: Except As Marked, All Systems Reviewed And Found Negative Constitutional: Negative for: Fever Gastrointestinal: Negative for: Vomiting, Diarrhea Musculoskeletal: Positive for: Arm Pain (left) Skin: Positive for: Lesions (left arm abscess) Physical Exam - Reviewed Nursing Documentation Reviewed: Yes Vital Signs Reviewed: Yes - Physical Exam Appears: Positive for: Non-toxic, No Acute Distress Cardiovascular/Chest: Positive for: Regular Rate, Rhythm. Negative for: Murmur Respiratory: Positive for: Normal Breath Sounds. Negative for: Respiratory Distress Gastrointestinal/Abdominal: Positive for: Normal Exam, Bowel Sounds, Soft. Negative for: Tenderness Extremity: Positive for: Other ( left antecubital area where abscess is present - around 3x4 area of swelling. no pus draining. no celluilits. full rom of elbow ) Neurologic/Psych: Positive for: Alert, Oriented (x3). Negative for: Motor/ Sensory Deficits - Laboratory Results Result Diagrams: 07/24/17 15:00 07/24/17 14:43 - ECG O2 Sat by Pulse Oximetry: 98 (RA) Pulse Ox Interpretation: Normal Medical Decision Making Medical Decision Making: Time: 14:43 Initial Impression: Abscess and pneumonia as per prior admission Plan: --Reevaluation --VBG shock panel --CMP --Drug screen, urine --CBC w/ differential --IV antibiotics for infection --Maxipime 1 gm Sodium Chloride 0.9% 100 ml IVPB --Vancomycin 1 gm Sodium Chloride 0.9% 250 ml IVPB --Zithromax 500 mg Sodium Chloride 0.9% 250 ml IVPB --Blood culture --Urine culture --Urinalysis --Admit --Reevaluation Time: 15:40 --Lactic acid from VBG shock panel is normal pt ordered for abx. pt aware of admission, willing to stay. re admitted. Scribe Attestation: Documented by Helio Lloyd acting as a scribe for Jesús Marino MD. MD Archer Attestation: All medical record entries made by the Scribe were at my direction and personally dictated by me. I have reviewed the chart and agree that the record accurately reflects my personal performance of the history, physical exam, medical decision making, and the department course for this patient. I have also personally directed, reviewed, and agree with the discharge instructions and disposition. Disposition - Clinical Impression Clinical Impression: Abscess - Patient ED Disposition Is Patient to be Admitted: Yes - Disposition Disposition Time: 15:20 Condition: STABLE
[2017-07-24] MEDS: Cefepime 1 GM in Sodium Chloride 0.9% 100 ML IVPB SCH (21:09)
[2017-07-24 21:20] LABS: RBC URINE 2 /hpf (0-3); URINE BILIRUBIN NEGATIVE (NEGATIVE); URINE BLOOD NEGATIVE (NEGATIVE); URINE COLOR YELLOW (YELLOW); URINE GLUCOSE (UA) NEG (Normal); URINE KETONE NEGATIVE (NEGATIVE); URINE LEUKOCYTE ESTERASE NEG Leu/uL (Negative); URINE PROTEIN NEGATIVE (NEGATIVE); WBC URINE 1 /hpf (0-5)
--- NOTE | 2017-07-24 23:09 | CP.PCM.HP ---
History of Present Illness - History of Present Illness History of Present Illness: Signed out after 1 day of Hspitalizatin and readmtted for the rickey problem. Use H&P from admission 07/23/2017. Present on Admission - Present on Admission Any Indicators Present on Admission: No Past Patient History - Infectious Disease Hx of Infectious Diseases: None - Past Medical History & Family History Past Medical History?: Yes - Past Social History Smoking Status: Current Some Days Smoker - CARDIAC Hx Cardiac Disorders: No - PULMONARY Hx Asthma: Yes - NEUROLOGICAL Hx Neurological Disorder: No - HEENT Hx HEENT Problems: No - RENAL Hx Chronic Kidney Disease: No - ENDOCRINE/METABOLIC Hx Endocrine Disorders: No - HEMATOLOGICAL/ONCOLOGICAL Hx Human Immunodeficiency Virus (HIV): No - INTEGUMENTARY Hx Dermatological Problems: No - MUSCULOSKELETAL/RHEUMATOLOGICAL Hx Musculoskeletal Disorders: No Hx Falls: No - GASTROINTESTINAL Hx Gastrointestinal Disorders: No - GENITOURINARY/GYNECOLOGICAL Hx Genitourinary Disorders: No Hx Sexually Transmitted Disorders: No - PSYCHIATRIC Hx Anxiety: Yes Hx Depression: Yes Hx Substance Use: Yes - SURGICAL HISTORY Hx Surgeries: No - ANESTHESIA Hx Anesthesia: No Hx Anesthesia Reactions: No Hx Malignant Hyperthermia: No Has any member of the family had a problem w/ anesthesia?: No Meds Allergies/Adverse Reactions: Allergies Allergy/AdvReac Type Severity Reaction Status Date / Time No Known Allergies Allergy Verified 07/22/17 19:10 Results - Vital Signs Recent Vital Signs: Last Vital Signs Temp 98.9 F 07/24/17 16:19 Pulse 83 07/24/17 16:19 Resp 18 07/24/17 16:19 BP 90/55 L 07/24/17 16:19 Pulse Ox 96 07/24/17 16:19 - Labs Result Diagrams: 07/24/17 15:00 07/24/17 14:43 Labs: Laboratory Results - last 24 hr 07/24/17 07/24/17 07/24/17 14:43 15:00 15:05 WBC 9.9 RBC 4.15 L Hgb 13.0 Hct 38.1 MCV 91.8 MCH 31.3 H MCHC 34.1 RDW 14.6 H Plt Count 275 MPV 7.6 Neut % (Auto) 70.2 Lymph % (Auto) 25.0 [place] % (Auto) 3.9 Eos % (Auto) 0.7 Baso % (Auto) 0.2 Neut # 7.0 Lymph # 2.5 [place] # 0.4 Eos # 0.1 Baso # 0.0 pO2 46 VBG pH 7.38 VBG pCO2 47 VBG HCO3 26.1 VBG Total CO2 29.2 H VBG O2 Sat (Calc) 86.9 H VBG Base Excess 2.0 VBG Potassium 4.1 A-a O2 Difference 45.0 Glucose 93 Lactate 0.9 FiO2 21.0 Sodium 142 138.0 Potassium 4.3 Chloride 107 109.0 H Carbon Dioxide 26 Anion Gap 13 BUN 13 Creatinine 0.8 Est GFR ( Amer) > 60 Est GFR (Non-Af Amer) > 60 Random Glucose 93 Calcium 9.0 Total Bilirubin 0.3 AST 59 D ALT 158 H D Alkaline Phosphatase 90 Total Protein 7.2 Albumin 3.5 Globulin 3.7 Albumin/Globulin Ratio 1.0 Venous Blood Potassium 4.1 Urine Color Urine Clarity Urine pH Ur Specific [place] Urine Protein Urine Glucose (UA) Urine Ketones Urine Blood Urine Nitrate Urine Bilirubin Urine Urobilinogen Ur Leukocyte Esterase Urine RBC (Auto) Urine Microscopic WBC Ur Squamous Epith Cells Urine Opiates Screen Urine Methadone Screen Ur Barbiturates Screen Ur Phencyclidine Scrn Ur Amphetamines Screen U Benzodiazepines Scrn U Oth Cocaine Metabols U Cannabinoids Screen 07/24/17 07/24/17 20:00 20:00 WBC RBC Hgb Hct MCV MCH MCHC RDW Plt Count MPV Neut % (Auto) Lymph % (Auto) [place] % (Auto) Eos % (Auto) Baso % (Auto) Neut # Lymph # [place] # Eos # Baso # pO2 VBG pH VBG pCO2 VBG HCO3 VBG Total CO2 VBG O2 Sat (Calc) VBG Base Excess VBG Potassium A-a O2 Difference Glucose Lactate FiO2 Sodium Potassium Chloride Carbon Dioxide Anion Gap BUN Creatinine Est GFR ( Amer) Est GFR (Non-Af Amer) Random Glucose Calcium Total Bilirubin AST ALT Alkaline Phosphatase Total Protein Albumin Globulin Albumin/Globulin Ratio Venous Blood Potassium Urine Color Yellow Urine Clarity Clear Urine pH 7.0 Ur Specific [place] 1.015 Urine Protein Negative Urine Glucose (UA) Neg Urine Ketones Negative Urine Blood Negative Urine Nitrate Negative Urine Bilirubin Negative Urine Urobilinogen 2.0 Ur Leukocyte Esterase Neg Urine RBC (Auto) 2 Urine Microscopic WBC 1 Ur Squamous Epith Cells < 1 Urine Opiates Screen Negative Urine Methadone Screen Negative Ur Barbiturates Screen Negative Ur Phencyclidine Scrn Negative Ur Amphetamines Screen Negative U Benzodiazepines Scrn Negative U Oth Cocaine Metabols Negative U Cannabinoids Screen Negative
--- NOTE | 2017-07-24 23:17 | CP.PCM.PN ---
Subjective - Date & Time of Evaluation Date of Evaluation: 07/24/17 Time of Evaluation: 17:30 - Subjective Subjective: Seen and examined at the bed side after readmitted to the Hospital after siggning out AMA today and returned after 2 hrs. Continue to complain Left Antecubital area 10/10 pain with discharge fro m the wound site. . Denies fever. +chills. Objective - Vital Signs/Intake and Output Vital Signs (last 24 hours): Temp Pulse Resp BP Pulse Ox 98.9 F 83 18 90/55 L 96 07/24/17 16:19 07/24/17 16:19 07/24/17 16:19 07/24/17 16:19 07/24/17 16:19 - Medications Medications: Current Medications Enoxaparin Sodium (Lovenox) 40 mg SC DAILY KAILEE PRN Reason: Protocol Hydromorphone HCl (Dilaudid) 1 mg IVP Q6 PRN PRN Reason: Pain, severe (8-10) Last Admin: 07/24/17 21:02 Dose: 1 mg Cefepime HCl 1 gm/ Sodium (Chloride) 100 mls @ 100 mls/hr IVPB Q12 KAILEE PRN Reason: Protocol Last Admin: 07/24/17 21:09 Dose: 100 mls/hr Vancomycin HCl 1 gm/ Sodium (Chloride) 250 mls @ 166.667 mls/hr IVPB Q12H KAILEE PRN Reason: Protocol Azithromycin 500 mg/ Sodium (Chloride) 250 mls @ 250 mls/hr IVPB DAILY KAILEE PRN Reason: Protocol Ketorolac Tromethamine (Toradol) 15 mg IVP Q6 PRN PRN Reason: Pain, moderate (4-7) - Labs Labs: 07/24/17 15:00 07/24/17 14:43 - Constitutional Appears: No Acute Distress - Head Exam Head Exam: ATRAUMATIC, NORMAL INSPECTION, NORMOCEPHALIC - Eye Exam Eye Exam: EOMI, Normal appearance, PERRL Pupil Exam: NORMAL ACCOMODATION, PERRL - ENT Exam ENT Exam: Mucous Membranes Moist, Normal Exam - Neck Exam Neck Exam: Full ROM, Normal Inspection. absent: Lymphadenopathy - Respiratory Exam Respiratory Exam: Clear to Ausculation Bilateral, NORMAL BREATHING PATTERN - Cardiovascular Exam Cardiovascular Exam: REGULAR RHYTHM, +S1, +S2. absent: Murmur - GI/Abdominal Exam GI & Abdominal Exam: Soft, Normal Bowel Sounds. absent: Tenderness - Extremities Exam Extremities Exam: Full ROM, Normal Capillary Refill, Normal Inspection. absent : Joint Swelling, Pedal Edema - Back Exam Back Exam: NORMAL INSPECTION - Neurological Exam Neurological Exam: Alert, Awake, CN II-XII Intact, Normal Gait, Oriented x3 - Psychiatric Exam Psychiatric exam: Normal Affect, Normal Mood - Skin Skin Exam: Dry, Intact, Normal Color, Warm Assessment and Plan (1) Abscess Assessment & Plan: S/P I&D at [facility], and Packing still inplace IVD Use ?PNA IVF IV Vancomycin/Cefepime/Azithromycin Vnco T/P with the 4th dose Pain medication PRN TTE R/o Vegetation ID and surgery Input appreciated Status: Acute
--- NOTE | 2017-07-24 23:52 | CP.PCM.CON ---
History of Present Illness - History of Present Illness History of Present Illness: ID consult- I saw the patient for initial ID consult yesterday for left antecubital abscess and he was started on Iv abx buth he signed out AMA earlier today and now is back again and being admitted for same thing. he surya any fever or chills. left antecubital area still with swelling adn small opening. PMH: Hep C, IVDU, asthma PSH: Bedside I & D at [facility] (07/22) w/packing placed All: NKDA SH: Admits to tobacco #4-5 cigarettes daily x 20 yrs, heroin use, denies ETOH use Review of Systems - Review of Systems Review of Systems: ROS- denies any fever or chills, denies any cough, denies any sob, denies any chest pain, denies any abd. pain, denies any n/v, denies any diarrhea, denies any dysurea c/o left forearm pain and redness and swelling Past Patient History - Infectious Disease Hx of Infectious Diseases: None - Past Medical History & Family History Past Medical History?: Yes - Past Social History Smoking Status: Heavy Smoker > 10 Cigarettes Daily - CARDIAC Hx Cardiac Disorders: No Hx Hypertension: No - PULMONARY Hx Asthma: Yes - NEUROLOGICAL Hx Neurological Disorder: No Hx Seizures: No - HEENT Hx HEENT Problems: No - RENAL Hx Chronic Kidney Disease: No - ENDOCRINE/METABOLIC Hx Endocrine Disorders: No - HEMATOLOGICAL/ONCOLOGICAL Hx Blood Disorders: No - INTEGUMENTARY Hx Dermatological Problems: No - MUSCULOSKELETAL/RHEUMATOLOGICAL Hx Musculoskeletal Disorders: No Hx Falls: No - GASTROINTESTINAL Hx Gastrointestinal Disorders: No - GENITOURINARY/GYNECOLOGICAL Hx Genitourinary Disorders: No Hx Sexually Transmitted Disorders: No - PSYCHIATRIC Hx Anxiety: Yes Hx Depression: Yes Hx Substance Use: No - SURGICAL HISTORY Hx Surgeries: No - ANESTHESIA Hx Anesthesia: No Meds Allergies/Adverse Reactions: Allergies Allergy/AdvReac Type Severity Reaction Status Date / Time No Known Allergies Allergy Verified 07/22/17 19:10 - Medications Medications: Current Medications Albuterol/Ipratropium (Duoneb 3 Mg/0.5 Mg (3 Ml) Ud) 3 ml INH RQ6 PRN PRN Reason: Shortness of Breath Enoxaparin Sodium (Lovenox) 40 mg SC DAILY KAILEE PRN Reason: Protocol Last Admin: 07/23/17 11:19 Dose: 40 mg Hydromorphone HCl (Dilaudid) 1 mg IVP Q4 PRN PRN Reason: Pain, severe (8-10) Last Admin: 07/23/17 09:50 Dose: 1 mg Cefepime HCl 1 gm/ Sodium (Chloride) 100 mls @ 100 mls/hr IVPB Q12 KAILEE PRN Reason: Protocol Last Admin: 07/23/17 10:56 Dose: 100 mls/hr Vancomycin HCl 1 gm/ Sodium (Chloride) 250 mls @ 166.667 mls/hr IVPB Q12 KAILEE PRN Reason: Protocol Ketorolac Tromethamine (Toradol) 30 mg IVP Q6 PRN PRN Reason: Pain, moderate (4-7) Pantoprazole Sodium (Protonix Ec Tab) 40 mg PO DAILY KAILEE Last Admin: 07/23/17 09:50 Dose: 40 mg Physical Exam - Constitutional Appears: Non-toxic, No Acute Distress - Head Exam Head Exam: ATRAUMATIC - Eye Exam Eye Exam: EOMI, PERRL - ENT Exam ENT Exam: Normal Oropharynx - Neck Exam Neck exam: Positive for: Full Rom - Respiratory Exam Respiratory Exam: Clear to Auscultation Bilateral, NORMAL BREATHING PATTERN - Cardiovascular Exam Cardiovascular Exam: RRR, +S1, +S2 - GI/Abdominal Exam GI & Abdominal Exam: Normal Bowel Sounds, Soft Additional comments: NT, ND - Extremities Exam Additional comments: left forearm region with area of about 4 x 3 cm swelling, erythema central small opening ( I and D site) , no packing seen no pus seen + tenderness to touch can flex elbow w/o any limitation of ROM - Neurological Exam Neurological exam: Alert, Oriented x3 Results - Vital Signs Recent Vital Signs: Last Vital Signs Temp 98.2 F 07/23/17 08:14 Pulse 61 07/23/17 08:14 Resp 20 07/23/17 08:14 BP 103/61 07/23/17 08:14 Pulse Ox 94 L 07/23/17 08:14 - Labs Result Diagrams: 07/22/17 20:10 07/22/17 21:34 Labs: Laboratory Results - last 24 hr 07/22/17 07/22/17 07/22/17 20:10 20:10 21:34 WBC 11.8 H RBC 4.27 L Hgb 12.9 Hct 39.0 MCV 91.4 MCH 30.3 MCHC 33.1 RDW 15.3 H Plt Count 299 MPV 8.2 Neut % (Auto) 76.5 H Lymph % (Auto) 16.8 L [place] % (Auto) 5.5 Eos % (Auto) 0.6 Baso % (Auto) 0.6 Neut # 9.0 H Lymph # 2.0 [place] # 0.7 Eos # 0.1 Baso # 0.1 pO2 70 H VBG pH 7.36 VBG pCO2 44 VBG HCO3 24.2 VBG Total CO2 26.3 VBG O2 Sat (Calc) 95.1 H VBG Base Excess -0.8 L VBG Potassium 8.3 H* Sodium 135.0 142 Chloride 110.0 H 110 H Glucose 101 Lactate 1.2 FiO2 21.0 Crit Value Called To Dr jeffery kaplan Crit Value Called By Rt Crit Value Read Back Y Blood Gas Notified Time 2014 Potassium 4.3 Carbon Dioxide 22 Anion Gap 14 BUN 12 Creatinine 0.7 L Est GFR ( Amer) > 60 Est GFR (Non-Af Amer) > 60 Random Glucose 93 Calcium 8.8 Venous Blood Potassium 8.3 H* Microbiology 06/05/17 21:30 Blood Blood Culture - Final 06/05/17 21:30 Blood Gram Stain - Final NO GROWTH AFTER 5 DAYS TEST NOT PERFORMED 07/19/17 22:55 Blood Blood Culture - Preliminary 07/19/17 22:55 Blood NO GROWTH AFTER 3 DAYS 07/19/17 22:40 Blood Blood Culture - Preliminary 07/19/17 22:40 Blood NO GROWTH AFTER 3 DAYS Accession No. : [id number] Patient Name / ID : NIDA CHENG / [id number] Exam Date : 07/22/2017 19:47:57 ( Approved ) Study Comment : Sex / Age : M / 52Y Creator : roshni horton Dictator : Herminio Machado MD Line Maintenance Supervisor : Medical Officer Psychiatry : Herminio Machado MD Approver2 : Report Date : 07/22/2017 19:56:50 My Comment : HISTORY: pneumonia COMPARISON: No prior. TECHNIQUE: Chest PA and lateral FINDINGS: LUNGS: Right lower lobe infiltrate. PLEURA: No significant pleural effusion identified. No pneumothorax apparent. CARDIOVASCULAR: Normal. OSSEOUS STRUCTURES: No significant abnormalities. VISUALIZED UPPER ABDOMEN: Normal. OTHER FINDINGS: None. IMPRESSION: Right lower lobe infiltrate. Assessment & Plan (1) Abscess Status: Acute (2) Opiate use Status: Acute - Assessment and Plan (Free Text) Assessment: A/P- 52 year old male with h/o IVDU , Hep C admitted with left forearm abscess . afebrile minimal leukocytosis has resolved. left forearm abscess with minimal surrounding cellulitis only. cxr- RLL infiltrtae as per report. Plan- check wound cx. check blood cx x 2 advise to continue with IV vancomycin that was already initiated by the primary team . keep trough <15. day day #2. continue with cefepime that was already initiated by primary doc for pneumonia. d/c zithromax. also advise to check for HIV ab. Thank you for allowing me to take part in the care of this patient. Past Patient History - Infectious Disease Hx of Infectious Diseases: None - Past Medical History & Family History Past Medical History?: Yes - Past Social History Smoking Status: Current Some Days Smoker - CARDIAC Hx Cardiac Disorders: No - PULMONARY Hx Asthma: Yes - NEUROLOGICAL Hx Neurological Disorder: No - HEENT Hx HEENT Problems: No - RENAL Hx Chronic Kidney Disease: No - ENDOCRINE/METABOLIC Hx Endocrine Disorders: No - HEMATOLOGICAL/ONCOLOGICAL Hx Human Immunodeficiency Virus (HIV): No - INTEGUMENTARY Hx Dermatological Problems: No - MUSCULOSKELETAL/RHEUMATOLOGICAL Hx Musculoskeletal Disorders: No Hx Falls: No - GASTROINTESTINAL Hx Gastrointestinal Disorders: No - GENITOURINARY/GYNECOLOGICAL Hx Genitourinary Disorders: No Hx Sexually Transmitted Disorders: No - PSYCHIATRIC Hx Anxiety: Yes Hx Depression: Yes Hx Substance Use: Yes - SURGICAL HISTORY Hx Surgeries: No - ANESTHESIA Hx Anesthesia: No Hx Anesthesia Reactions: No Hx Malignant Hyperthermia: No Has any member of the family had a problem w/ anesthesia?: No Meds Allergies/Adverse Reactions: Allergies Allergy/AdvReac Type Severity Reaction Status Date / Time No Known Allergies Allergy Verified 07/22/17 19:10 - Medications Medications: Current Medications Enoxaparin Sodium (Lovenox) 40 mg SC DAILY KAILEE PRN Reason: Protocol Hydromorphone HCl (Dilaudid) 1 mg IVP Q6 PRN PRN Reason: Pain, severe (8-10) Last Admin: 07/24/17 21:02 Dose: 1 mg Cefepime HCl 1 gm/ Sodium (Chloride) 100 mls @ 100 mls/hr IVPB Q12 KAILEE PRN Reason: Protocol Last Admin: 07/24/17 21:09 Dose: 100 mls/hr Vancomycin HCl 1 gm/ Sodium (Chloride) 250 mls @ 166.667 mls/hr IVPB Q12H KAILEE PRN Reason: Protocol Azithromycin 500 mg/ Sodium (Chloride) 250 mls @ 250 mls/hr IVPB DAILY KAILEE PRN Reason: Protocol Ketorolac Tromethamine (Toradol) 15 mg IVP Q6 PRN PRN Reason: Pain, moderate (4-7) Results - Vital Signs Recent Vital Signs: Last Vital Signs Temp 98.9 F 07/24/17 16:19 Pulse 83 07/24/17 16:19 Resp 18 07/24/17 16:19 BP 90/55 L 07/24/17 16:19 Pulse Ox 96 07/24/17 16:19 - Labs Result Diagrams: 07/24/17 15:00 07/24/17 14:43 Labs: Laboratory Results - last 24 hr 07/24/17 07/24/17 07/24/17 14:43 15:00 15:05 WBC 9.9 RBC 4.15 L Hgb 13.0 Hct 38.1 MCV 91.8 MCH 31.3 H MCHC 34.1 RDW 14.6 H Plt Count 275 MPV 7.6 Neut % (Auto) 70.2 Lymph % (Auto) 25.0 [place] % (Auto) 3.9 Eos % (Auto) 0.7 Baso % (Auto) 0.2 Neut # 7.0 Lymph # 2.5 [place] # 0.4 Eos # 0.1 Baso # 0.0 pO2 46 VBG pH 7.38 VBG pCO2 47 VBG HCO3 26.1 VBG Total CO2 29.2 H VBG O2 Sat (Calc) 86.9 H VBG Base Excess 2.0 VBG Potassium 4.1 A-a O2 Difference 45.0 Glucose 93 Lactate 0.9 FiO2 21.0 Sodium 142 138.0 Potassium 4.3 Chloride 107 109.0 H Carbon Dioxide 26 Anion Gap 13 BUN 13 Creatinine 0.8 Est GFR ( Amer) > 60 Est GFR (Non-Af Amer) > 60 Random Glucose 93 Calcium 9.0 Total Bilirubin 0.3 AST 59 D ALT 158 H D Alkaline Phosphatase 90 Total Protein 7.2 Albumin 3.5 Globulin 3.7 Albumin/Globulin Ratio 1.0 Venous Blood Potassium 4.1 Urine Color Urine Clarity Urine pH Ur Specific [place] Urine Protein Urine Glucose (UA) Urine Ketones Urine Blood Urine Nitrate Urine Bilirubin Urine Urobilinogen Ur Leukocyte Esterase Urine RBC (Auto) Urine Microscopic WBC Ur Squamous Epith Cells Urine Opiates Screen Urine Methadone Screen Ur Barbiturates Screen Ur Phencyclidine Scrn Ur Amphetamines Screen U Benzodiazepines Scrn U Oth Cocaine Metabols U Cannabinoids Screen 07/24/17 07/24/17 20:00 20:00 WBC RBC Hgb Hct MCV MCH MCHC RDW Plt Count MPV Neut % (Auto) Lymph % (Auto) [place] % (Auto) Eos % (Auto) Baso % (Auto) Neut # Lymph # [place] # Eos # Baso # pO2 VBG pH VBG pCO2 VBG HCO3 VBG Total CO2 VBG O2 Sat (Calc) VBG Base Excess VBG Potassium A-a O2 Difference Glucose Lactate FiO2 Sodium Potassium Chloride Carbon Dioxide Anion Gap BUN Creatinine Est GFR ( Amer) Est GFR (Non-Af Amer) Random Glucose Calcium Total Bilirubin AST ALT Alkaline Phosphatase Total Protein Albumin Globulin Albumin/Globulin Ratio Venous Blood Potassium Urine Color Yellow Urine Clarity Clear Urine pH 7.0 Ur Specific [place] 1.015 Urine Protein Negative Urine Glucose (UA) Neg Urine Ketones Negative Urine Blood Negative Urine Nitrate Negative Urine Bilirubin Negative Urine Urobilinogen 2.0 Ur Leukocyte Esterase Neg Urine RBC (Auto) 2 Urine Microscopic WBC 1 Ur Squamous Epith Cells < 1 Urine Opiates Screen Negative Urine Methadone Screen Negative Ur Barbiturates Screen Negative Ur Phencyclidine Scrn Negative Ur Amphetamines Screen Negative U Benzodiazepines Scrn Negative U Oth Cocaine Metabols Negative U Cannabinoids Screen Negative
[2017-07-25] MEDS ORDERED: guaiFENesin 100 mg/5 ml Syrup UD PO ONE (00:07)
[2017-07-25] MEDS ORDERED: Azithromycin 500 MG in Sodium Chloride 0.9% 250 ML IVPB SCH (09:00)
[2017-07-25] MEDS ORDERED: Enoxaparin 40 mg Syringe SC SCH (09:00)
[2017-07-25] MEDS: Cefepime 1 GM in Sodium Chloride 0.9% 100 ML IVPB SCH (09:07)
[2017-07-25 16:22] VITALS: BP 100/64; PULSE 62; RESP 20; TEMP 98.1
[2017-07-26 22:06] VITALS: O2SAT 98
== END 2017-07-25 16:50 | disposition left against medical advice (07) | DRG 602 ==
LOC: H.ER 14:06 → H.ERHOLD 14:58 → H.MEDSURG1 15:45
PROVIDERS: ADMIT Internal Medicine; ATTEND Internal Medicine
DX: L02.414 Cutaneous abscess of left upper limb (principal); J18.9 Pneumonia, unspecified organism; B19.20 Unspecified viral hepatitis C without hepatic coma; F11.90 Opioid use, unspecified, uncomplicated; J45.909 Unspecified asthma, uncomplicated; F32.9 Major depressive disorder, single episode, unspecified; F41.9 Anxiety disorder, unspecified; F17.210 Nicotine dependence, cigarettes, uncomplicated

== ENCOUNTER 2017-07-26 08:34 | Emergency (ER) | payer MEDICAID ==
[2017-07-26 08:35] VITALS: BMI 23.0
[2017-07-26 08:40] VITALS: BP 107/60; PULSE 77; RESP 16; TEMP 98; O2SAT 100
--- NOTE | 2017-07-26 09:33 | ED PDOC ---
HPI: Wound Care - HPI Time Seen by Provider: 07/26/17 09:09 Chief Complaint (Nursing): Wound Check Chief Complaint (Provider): Wound Evaluation History Per: Patient History Of Present Illness: Yohan Ya is a 52 year old male presenting to the ED for an evaluation of a left arm wound occurring 1 week prior to arrival. The patient reports being admitted to [facility] last Friday and left AMA on Friday. He then arrived to this ED on Friday and left AMA yesterday. The patient was given antibiotics but was unable to fill them as he could not afford the antibiotics. The patient denies fever or chills. PMD: None Provided Exam Limitations: no limitations Onset/Duration Of Symptoms: Days (x7) Current Symptoms Are (Timing): Still Present Past Medical History Reviewed: Historical Data, Nursing Documentation, Vital Signs Vital Signs: Last Vital Signs Temp 98.0 F 07/26/17 08:40 Pulse 77 07/26/17 08:40 Resp 16 07/26/17 08:40 BP 107/60 07/26/17 08:40 Pulse Ox 100 07/26/17 08:40 - Medical History PMH: Anxiety, Asthma, Depression Denies: Diabetes, Hepatitis, HIV, HTN, Chronic Kidney Disease, Seizures, Sexually Transmitted Disease - Surgical History Surgical History: No Surg Hx - Family History Family History: States: No Known Family Hx - Social History Current smoker - smoking cessation education provided: Yes Alcohol: None Drugs: Other - Immunization History Hx Tetanus Toxoid Vaccination: No Hx Influenza Vaccination: No Hx Pneumococcal Vaccination: No - Home Medications Home Medications: Ambulatory Orders Medication Instructions Recorded Albuterol HFA [Ventolin HFA 90 1 puff IH BID PRN #1 unit 07/18/17 mcg/actuation (8 g)] Azithromycin [Zithromax] 250 mg PO DAILY #6 tab 07/18/17 Amoxicillin/Clavulanate [Augmentin 1 tab PO BID 7 Days #14 tab 07/22/17 875 MG-125 MG] Doxycycline Hyclate 100 mg PO BID 7 Days #14 capsule 07/22/17 Sulfamethoxazole/Trimethoprim 1 tab PO BID #20 tab 07/26/17 [Bactrim DS 800 mg-160 mg] - Allergies Allergies/Adverse Reactions: Allergies Allergy/AdvReac Type Severity Reaction Status Date / Time No Known Allergies Allergy Verified 07/22/17 19:10 Review of Systems ROS Statement: Except As Marked, All Systems Reviewed And Found Negative Constitutional: Negative for: Fever, Chills Musculoskeletal: Positive for: Arm Pain (wound evaluation on left elbow) Physical Exam - Reviewed Nursing Documentation Reviewed: Yes Vital Signs Reviewed: Yes - Physical Exam Appears: Positive for: Non-toxic, No Acute Distress Head Exam: Positive for: ATRAUMATIC, NORMOCEPHALIC Skin: Positive for: Normal Color, Warm, Dry Eye Exam: Positive for: Normal appearance, EOMI ENT: Positive for: Normal ENT Inspection Neck: Positive for: Normal, Painless ROM Cardiovascular/Chest: Positive for: Regular Rate, Rhythm, Chest Non Tender Respiratory: Positive for: Normal Breath Sounds. Negative for: Respiratory Distress Gastrointestinal/Abdominal: Positive for: Normal Exam, Soft. Negative for: Tenderness Back: Positive for: Normal Inspection Extremity: Positive for: Normal ROM (full ROM of left elbow), Other (firm protuberance to antecubital fossa - ulnar aspect with clear discharge present, no purulent material; minimal surrounding erythema) Neurologic/Psych: Positive for: Alert, Oriented (x3). Negative for: Motor/ Sensory Deficits - ECG O2 Sat by Pulse Oximetry: 100 (RA) Pulse Ox Interpretation: Normal Medical Decision Making Medical Decision Making: Time: 09:09 Impression: abscess Procedure: 09:22 Abscess central incision wound that appeared to be barely closed (patient was instructed to repack but he did not), reopened wound, no pus expressed. Will not repack at this time. Surrounding area was cleaned with Betadine and Alcohol gauze dressing. Instructed pt to return to ED if presence of new swelling, redness, fever, chills, or inability to range elbow. Pt tolerated procedure well. Discharged pt on antibiotics that are on the [facility] $4 list. Scribe Attestation: Documented by Maribel Macdonald, acting as a scribe for Cristhian Dill MD. Provider Scribe Attestation: All medical record entries made by the Scribe were at my direction and personally dictated by me. I have reviewed the chart and agree that the record accurately reflects my personal performance of the history, physical exam, medical decision making, and the department course for this patient. I have also personally directed, reviewed, and agree with the discharge instructions and disposition. Disposition - Clinical Impression Clinical Impression: Encounter for wound re-check, Abscess - Disposition Disposition: Routine/Home Disposition Time: 09:32 Condition: STABLE Prescriptions: Sulfamethoxazole/Trimethoprim [Bactrim DS 800 mg-160 mg] 1 tab PO BID #20 tab Instructions: Abscess Follow-up (ED) Forms: [facility] [facility] (Macedonian)
== END 2017-07-26 09:38 | disposition home or self-care (01) ==
LOC: H.ER 08:34
DX: Z48.00 Encounter for change or removal of nonsurgical wound dressing (principal)

== ENCOUNTER 2017-08-14 11:21 | Emergency (ER) | payer MEDICAID, OTHER ==
[2017-08-14 11:21] VITALS: BMI 23.0
[2017-08-14 11:31] VITALS: BP 120/76; PULSE 75; TEMP 99.4
[2017-08-14 12:11] VITALS: RESP 16; O2SAT 100
--- NOTE | 2017-08-14 12:17 | ED PDOC ---
Past Medical History Vital Signs: Last Vital Signs Temp 99.4 F 08/14/17 12:08 Pulse 75 08/14/17 12:08 Resp 16 08/14/17 12:08 BP 120/76 08/14/17 12:08 Pulse Ox 100 08/14/17 12:08 - Medical History PMH: Anxiety, Asthma, Depression Denies: Diabetes, Hepatitis, HIV, HTN, Chronic Kidney Disease, Seizures, Sexually Transmitted Disease - Immunization History Hx Tetanus Toxoid Vaccination: No Hx Influenza Vaccination: No Hx Pneumococcal Vaccination: No - Home Medications Home Medications: Ambulatory Orders Medication Instructions Recorded Albuterol HFA [Ventolin HFA 90 1 puff IH BID PRN #1 unit 07/18/17 mcg/actuation (8 g)] Azithromycin [Zithromax] 250 mg PO DAILY #6 tab 07/18/17 Amoxicillin/Clavulanate [Augmentin 1 tab PO BID 7 Days #14 tab 07/22/17 875 MG-125 MG] Doxycycline Hyclate 100 mg PO BID 7 Days #14 capsule 07/22/17 Sulfamethoxazole/Trimethoprim 1 tab PO BID #20 tab 07/26/17 [Bactrim DS 800 mg-160 mg] - Allergies Allergies/Adverse Reactions: Allergies Allergy/AdvReac Type Severity Reaction Status Date / Time No Known Allergies Allergy Verified 07/22/17 19:10 - ECG O2 Sat by Pulse Oximetry: 100 (RA) Medical Decision Making Medical Decision Makin Patient left before completion of treatment. ~ Scribe Attestation: Documented Duncan Levine, acting as a scribe for JEANETTE Duvall. Provider Scribe Attestation: All medical record entries made by the Scribe were at my direction and personally dictated by me. I have reviewed the chart and agree that the record accurately reflects my personal performance of the history, physical exam, medical decision making, and the department course for this patient. I have also personally directed, reviewed, and agree with the discharge instructions and disposition.
== END 2017-08-14 12:12 | disposition left against medical advice (07) ==
LOC: H.ER 11:21
DX: Z02.89 Encounter for other administrative examinations (principal)

== ENCOUNTER 2017-08-21 11:20 | Emergency (ER) | payer SELFPAY ==
[2017-08-21 11:21] VITALS: BMI 23.0
[2017-08-21 12:00] VITALS: BP 114/54; PULSE 76; RESP 18; TEMP 97; O2SAT 97
--- NOTE | 2017-08-21 12:59 | ED PDOC ---
HPI: Male Pain Time Seen by Provider: 08/21/17 12:39 Chief Complaint (Nursing): Abnormal Skin Integrity Chief Complaint (Provider): Itchy rash History Per: Patient History/Exam Limitations: no limitations Additional Complaint(s): Patient is a 52 y/o male with no significant past medical history presenting to the emergency department for a pruritic rash around his anal area. Notes that while using a public toilet, water splashed against his bottom. Following that, he developed a red, itchy rash to the anal area. Reports that it is painful to use the restroom. Denies rectal bleeding, vomiting, nausea, fever, or other complaints. PCP: none provided Past Medical History Reviewed: Historical Data, Nursing Documentation, Vital Signs Vital Signs: Last Vital Signs Temp 97.0 F L 08/21/17 11:57 Pulse 76 08/21/17 11:57 Resp 18 08/21/17 11:57 BP 114/54 L 08/21/17 11:57 Pulse Ox 97 08/21/17 11:57 - Medical History PMH: Anxiety, Asthma, Depression Denies: Diabetes, Hepatitis, HIV, HTN, Chronic Kidney Disease, Seizures, Sexually Transmitted Disease - Family History Family History: States: No Known Family Hx - Immunization History Hx Tetanus Toxoid Vaccination: No Hx Influenza Vaccination: No Hx Pneumococcal Vaccination: No - Home Medications Home Medications: Ambulatory Orders Medication Instructions Recorded Albuterol HFA [Ventolin HFA 90 1 puff IH BID PRN #1 unit 07/18/17 mcg/actuation (8 g)] Azithromycin [Zithromax] 250 mg PO DAILY #6 tab 07/18/17 Amoxicillin/Clavulanate [Augmentin 1 tab PO BID 7 Days #14 tab 07/22/17 875 MG-125 MG] Doxycycline Hyclate 100 mg PO BID 7 Days #14 capsule 07/22/17 Sulfamethoxazole/Trimethoprim 1 tab PO BID #20 tab 07/26/17 [Bactrim DS 800 mg-160 mg] Hard Fat/Phenylephrine [place] 1 sup RC BID #28 sup 08/21/17 [Anusol Suppository] Hydrocortisone 2.5% (Rectal) 30 applic UT BID #1 tube 08/21/17 [Anusol-HC] - Allergies Allergies/Adverse Reactions: Allergies Allergy/AdvReac Type Severity Reaction Status Date / Time No Known Allergies Allergy Verified 08/21/17 11:56 Review of Systems ROS Statement: Except As Marked, All Systems Reviewed And Found Negative Constitutional: Negative for: Fever Gastrointestinal: Negative for: Nausea, Vomiting, Other (rectal bleeding) Skin: Positive for: Rash (red, itchy rash around rectal region) Physical Exam - Reviewed Nursing Documentation Reviewed: Yes Vital Signs Reviewed: Yes - Physical Exam Appears: Positive for: Well, Non-toxic, No Acute Distress Head Exam: Positive for: ATRAUMATIC, NORMAL INSPECTION, NORMOCEPHALIC Skin: Positive for: Normal Color, Warm, Dry Eye Exam: Positive for: Normal appearance Neck: Positive for: Normal Cardiovascular/Chest: Positive for: Regular Rate, Rhythm Respiratory: Negative for: Accessory Muscle Use, Respiratory Distress Gastrointestinal/Abdominal: Positive for: Normal Exam, Soft. Negative for: Tenderness Back: Positive for: Normal Inspection. 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 Negative for : Hemorrhoids (no obvious external hemorrhoids) Extremity: Positive for: Normal ROM. Negative for: Pedal Edema Neurologic/Psych: Positive for: Alert, Oriented (x3) - ECG O2 Sat by Pulse Oximetry: 97 (RA) Pulse Ox Interpretation: Normal Medical Decision Making Medical Decision Making: Time: 12:48 Initial impression: Itchy rash on rectal region Initial plan: Hydrocortisone 2.5% 1 topical application Reevaluation Patient is specifically asking for a dose of medication in the ED. States that he is unable to buy prescriptions due to a lack of funds. Patient given hydrocortisone cream but sstill given Rx for anusol and advised to take Rx. Otherwise the patient is stable for discharge. Instructed patient to follow up with referred clinic in 2 days for further evaluation and to return to ED if it symptoms worsen. ~ Scribe Attestation: Documented by Rosibel Levine, acting as a scribe for JEANETTE Gandara. Provider Scribe Attestation: All medical record entries made by the Scribe were at my direction and personally dictated by me. I have reviewed the chart and agree that the record accurately reflects my personal performance of the history, physical exam, medical decision making, and the department course for this patient. I have also personally directed, reviewed, and agree with the discharge instructions and disposition. Disposition - Clinical Impression Clinical Impression: Rash - Patient ED Disposition Is Patient to be Admitted: No Counseled Patient/Family Regarding: Diagnosis, Need For Followup, Rx Given - Disposition Referrals: [facility] [Outside] Disposition: Routine/Home Disposition Time: 12:58 Condition: STABLE Prescriptions: Hard Fat/Phenylephrine [place] [Anusol Suppository] 1 sup RC BID #28 sup Hydrocortisone 2.5% (Rectal) [Anusol-HC] 30 applic UT BID #1 tube Instructions: Hemorrhoids (ED) Forms: [employer] (Bulgarian) Print Language: FAROESE - PA / DIVISION ORDER TECHNICIAN / Resident Statement /DO has reviewed & agrees with the documentation as recorded.
== END 2017-08-21 13:51 | disposition home or self-care (01) ==
LOC: H.ER 11:20
DX: K64.8 Other hemorrhoids (principal); F32.9 Major depressive disorder, single episode, unspecified; F41.9 Anxiety disorder, unspecified; J45.909 Unspecified asthma, uncomplicated

== ENCOUNTER 2017-09-16 20:39 | Inpatient (IN) | payer MEDICAID ==
[2017-09-16 20:39] VITALS: BMI 23.0
[2017-09-17] MEDS ORDERED: Albuterol-Ipratrop 3 mg / 0.5 (3 ml) UD INH STA (00:54)
[2017-09-17] MEDS ORDERED: Albuterol-Ipratrop 3 mg / 0.5 (3 ml) UD ONE ×2 (01:49→01:58)
--- NOTE | 2017-09-17 02:33 | ED PDOC ---
HPI: Psych/Substance Abuse Time Seen by Provider: 09/17/17 00:43 Chief Complaint (Nursing): Psychiatric Evaluation Chief Complaint (Provider): Psychiatric Evaluation History Per: Patient History/Exam Limitations: no limitations Additional Complaint(s): Yohan Ya is a 52 year old male with a history of heroin addiction and depression that presents to the ED with a chief complaint of depression. Patient denies and suicidal or homicidal ideation, and states that he last used heroin 24 hours ago and is hoping not to use it again. He states that he is currently not seeing a psychiatrist and is not on any antidepressants. Past Medical History Reviewed: Historical Data, Nursing Documentation, Vital Signs Vital Signs: Last Vital Signs Temp 98.7 F 09/16/17 23:13 Pulse 84 09/16/17 23:13 Resp 16 09/16/17 23:13 BP 115/68 09/16/17 23:13 Pulse Ox 96 09/16/17 23:13 - Medical History PMH: Anxiety, Asthma, Depression Denies: Diabetes, Hepatitis, HIV, HTN, Chronic Kidney Disease, Seizures, Sexually Transmitted Disease - Family History Family History: States: Unknown Family Hx - Social History Current smoker - smoking cessation education provided: Yes (Smokes half pack/day ) Drugs: Other (heroin) - Immunization History Hx Tetanus Toxoid Vaccination: No Hx Influenza Vaccination: No Hx Pneumococcal Vaccination: No - Home Medications Home Medications: Ambulatory Orders Medication Instructions Recorded Albuterol HFA [Ventolin HFA 90 1 puff IH BID PRN #1 unit 07/18/ mcg/actuation (8 g)] Hydrocortisone 2.5% (Rectal) 30 applic [place] BID #1 tube 08/21/17 [Anusol-HC] - Allergies Allergies/Adverse Reactions: Allergies Allergy/AdvReac Type Severity Reaction Status Date / Time No Known Allergies Allergy Verified 08/21/17 11:56 Review of Systems ROS Statement: Except As Marked, All Systems Reviewed And Found Negative Psych: Positive for: Depression. Negative for: Suicidal ideation (deneis SI or HI) Physical Exam - Reviewed Nursing Documentation Reviewed: Yes Vital Signs Reviewed: Yes - Physical Exam Appears: Positive for: Non-toxic, No Acute Distress Head Exam: Positive for: ATRAUMATIC, NORMOCEPHALIC Skin: Positive for: Normal Color, Warm Eye Exam: Positive for: Normal appearance, EOMI, PERRL ENT: Positive for: Normal ENT Inspection Neck: Positive for: Normal, Supple Cardiovascular/Chest: Positive for: Regular Rate, Rhythm. Negative for: Murmur Respiratory: Positive for: Wheezing (diffuse b/l expiratory wheezing). Negative for: Normal Breath Sounds Gastrointestinal/Abdominal: Positive for: Normal Exam, Soft. Negative for: Tenderness Back: Positive for: Normal Inspection. Negative for: L CVA Tenderness, R CVA Tenderness Extremity: Positive for: Normal ROM. Negative for: Deformity, Swelling Neurologic/Psych: Positive for: Alert, Oriented. Negative for: Motor/Sensory Deficits - Laboratory Results Result Diagrams: 09/17/17 03:29 09/17/17 03:29 - ECG O2 Sat by Pulse Oximetry: 96 (RA) Pulse Ox Interpretation: Normal Medical Decision Making Medical Decision Making: Impression: 52 year old male with depression Plan: * CMP * CBC * Urine Drug Screen * Urine Dip * Urinalysis * Alcohol * Prednisone 60 mg PO * Duoneb 9 mL INH * Peak Flow Pre/Post Tx * Crisis Evaluation * Reevaluation 2:27 Crisis evaluated patient, will be admitted for further stabilization of depression. Patient is medically stable for psychiatric admission, accepted for admission under Dr. Morales. Clinical Impression: Depression, Asthma Scribe Attestation: Documented by Altagracia Cabrales, acting as a scribe for Pio Morales MD. Provider Scribe Attestation: All medical record entries made by the Scribe were at my direction and personally dictated by me. I have reviewed the chart and agree that the record accurately reflects my personal performance of the history, physical exam, medical decision making, and the department course for this patient. I have also personally directed, reviewed, and agree with the discharge instructions and disposition. Disposition - Clinical Impression Clinical Impression: Depression, Asthma - Patient ED Disposition Is Patient to be Admitted: Yes - Disposition Disposition Time: 02:37 Condition: FAIR Patient Signed Over To: Brando Morales
[2017-09-17 03:37] LABS: BASO % 0.5 % (0.0-2.0); EOS # 0.2 K/uL (0.0-0.7); EOS % 3.5 % (0.0-4.0); HEMOGLOBIN 13.5 g/dL (12.0-18.0); LYMPH # 1.6 K/uL (1.0-4.3); LYMPH % 26.5 % (20.0-40.0); MEAN CELL VOLUME 90.8 fl (80.0-94.0); MEAN CORPUSCULAR HEMOGLOBIN 30.6 pg (27.0-31.0); MEAN CORPUSCULAR HGB CONC 33.7 g/dL (33.0-37.0); MEAN PLATELET VOLUME 8.1 fl (7.2-11.7); MONO # 0.4 K/uL (0.0-0.8); MONO % 7.3 % (0.0-10.0); NEUT # 3.8 K/uL (1.8-7.0); NEUT % 62.2 % (50.0-75.0); RBC 4.43 Mil/uL (4.40-5.90); RED CELL DISTRIBUTION WIDTH 14.8 % (11.5-14.5); WHITE BLOOD COUNT 6.1 K/uL (4.8-10.8)
[2017-09-17 03:40] LABS: BLOOD UREA NITROGEN 18 mg/dl (9-20); CALCIUM 9.1 mg/dL (8.4-10.2); GFR AFRICAN-AMERICAN > 60; GFR NON-AFRICAN AMERICAN > 60
[2017-09-17 03:46] LABS: URINE BILIRUBIN NEGATIVE (NEGATIVE); URINE BLOOD NEGATIVE (NEGATIVE); URINE CLARITY SLIGHTY-CLOUDY (Clear); URINE COLOR AMBER (YELLOW); URINE GLUCOSE (UA) NEG (Normal); URINE LEUKOCYTE ESTERASE NEG Leu/uL (Negative); URINE NITRATE NEGATIVE (NEGATIVE); URINE PROTEIN 30 mg/dL (NEGATIVE)
[2017-09-17 04:06] LABS: BARBITURATES, UR NEGATIVE (NEGATIVE); BENZODIAZEPINES, UR NEGATIVE (NEGATIVE); OPIATES, UR POSITIVE (NEGATIVE); PHENCYCLIDINE, UR NEGATIVE (NEGATIVE)
[2017-09-17 05:32] VITALS: O2SAT 95
[2017-09-17] MEDS ORDERED: DiphenhydrAMINE 50 mg/ml Inj IM PRN (06:26)
[2017-09-17] MEDS ORDERED: Alum-Mag Hydrox-Simethicone Susp (30 mL) PO PRN (06:26)
[2017-09-17] MEDS ORDERED: Magnesium Hydroxide Susp 30 ml UD PO PRN (06:26)
--- NOTE | 2017-09-17 06:52 | PCM.BM ---
Treatment Plan Problems - Problems identified on initial assessmt Hopelessness/ Helplessness Date Initiated: 09/17/17 Time Initiated: 06:51 Assessment reference: NA Status: Active High Risk: Violence Date Initiated: 09/17/17 Time Initiated: 06:51 Assessment reference: NA Status: Active Treatment assets and liabiliti Patient Assests: cooperative, self-reliant, ADL independent, physically healthy Patient Liabilities: substance abuse - Milieu Protocol Maintain good personal hygiene: every shift Encourage regular showers, every shift Remind patient to perform daily oral care Conduct patient checks and document Observation sheet: Q15 minutes Maintain personal safety: every shift Educate patient to report safety concerns to staff, every shift Monitor environment for contraband/sharps Medication safety: Monitor for expected outcome, potential side effects: every shift, Assess barriers to learning: every shift, Assess readiness for medication education: every shift
--- NOTE | 2017-09-17 08:27 | RAD ---
HISTORY: admit COMPARISON: 07/22/2017 TECHNIQUE: Chest PA and lateral FINDINGS: LUNGS: Interval clearance of the prior right medial/right lower lobe infiltrate PLEURA: No significant pleural effusion identified. No pneumothorax apparent. CARDIOVASCULAR: Normal. OSSEOUS STRUCTURES: Thoracic spondylosis-unchanged VISUALIZED UPPER ABDOMEN: Normal. OTHER FINDINGS: None. IMPRESSION: No active disease. Interval resolution of the prior right lower lobe infiltrate
[2017-09-17] MEDS: Multivitamin With Minerals Tab PO SCH (11:54)
--- NOTE | 2017-09-17 13:47 | PCM.PSYCH ---
Initial Psychiatric Evaluation - Initial Psychiatric Evaluation Type of Admission: Voluntary Legal Status: Capacity Chief Complaint (in patient's own words): I have been using heroin and I am very depressed Patient's Reaction to Hospitalization: pt requested help History of Present Illness and Precipitating Events: pt is a 52 ys old male chiatrically admitted for worsening depression and anxiety in the context of chronic opioid abuse. Patient reports that he uses 1.5 grams (approx 10 bags) of heroin (snorts) a day. He reports intermittent thoughts of suicide but denies current suicidal ideation/plan intent. reported decreased sleep and appetite +hopelessness. Denies AH/VH/paranoia/delusions/ HI. Current Medications: Active Medications Generic Name Dose Route Start Last Admin Trade Name Freq PRN Reason Stop Dose Admin Acetaminophen 650 mg 09/17/17 06:26 Tylenol 325mg Tab PO Q4 PRN Pain, moderate (4-7) Al Hydrox/Mg Hydrox/Simethicone 30 ml 09/17/17 06:26 Maalox Plus 30 Ml PO Q4 PRN Dyspepsia Clonidine HCl 0.1 mg 09/17/17 09:00 09/17/17 12:02 Catapres PO 09/20/17 09:01 0.1 mg Q8 KAILEE Administration Cyclobenzaprine HCl 5 mg 09/17/17 13:36 Flexeril PO TID PRN Muscle spasm Diphenhydramine HCl 50 mg 09/17/17 06:26 Benadryl IM Q6 PRN Extrapyramidal S/S Unable PO Diphenhydramine HCl 50 mg 09/17/17 06:26 Benadryl PO Q6 PRN Extrapyramidal Symptoms Escitalopram Oxalate 10 mg 09/17/17 13:39 Lexapro PO DAILY KAILEE Haloperidol 5 mg 09/17/17 06:17 Haldol PO Q4 PRN Agitation Haloperidol Lactate 5 mg 09/17/17 06:17 Haldol IM Q4 PRN Agitation, Unable to Take PO Ibuprofen 800 mg 09/17/17 06:30 Motrin Tab PO 09/20/17 17:00 Q6 PRN Pain, severe (8-10) Loperamide HCl 2 mg 09/17/17 06:32 Imodium PO 09/20/17 17:00 QID PRN Diarrhea Lorazepam 2 mg 09/17/17 06:26 Ativan IM Q4 PRN Anxiety/Agitation,Unable PO Lorazepam 2 mg 09/17/17 06:26 09/17/17 11:54 Ativan PO 2 mg Q4 PRN Administration Anxiety/Agitation Magnesium Hydroxide 30 ml 09/17/17 06:26 Milk Of Magnesia PO HS PRN Constipation Multivitamins/Minerals 1 tab 09/17/17 09:00 09/17/17 11:54 Therapeutic-M Tab PO 1 tab DAILY KAILEE Administration Past Psychiatric History - Past Psychiatric History Explanation of prior treatment: at least two previous hospitalizations with similar presentation History of ETOH/Drug Use: opiate use for past two years Pertinent Medical Hx (Current Medical&Sleep Prob, Allergies): Allergies Allergy/AdvReac Type Severity Reaction Status Date / Time No Known Allergies Allergy Verified 08/21/17 11:56 Albuterol HFA [Ventolin HFA 90 mcg/actuation (8 g)] 1 puff IH BID PRN #1 unit Hydrocortisone 2.5% (Rectal) [Anusol-HC] 30 applic IN BID #1 tube 08/21/17 Mental Status Examination - Personal Presentation Personal Presentation: Looks older than stated age - Affect Affect: Depressed - Motor Activity Motor Activity: Psychomotor Retardation - Reliability in Providing Information Reliability in Providing Information: Poor, due to altered mood - Speech Speech: Relevant - Mood Mood: Depressed, Anxious - Formal Thought Process Formal Thought Process: Circumstantial - Hallucinations/Delusions Additional comments: pt denied perceptual disturbances, non elicited - Cognitive Functions Orientation: Person, Place, Situation Sensorium: Alert Attention/Concentration: Attentive Judgement: Imparied, as evidence by: Poor judgement, Imparied, as evidence by: Lack of insight into illness - Risk Risk: Withdrawal, Diminished functioning - Strength & Assets Inventory Strength & Assets Inventory: Life experience - Limitations Additional comments: homeless DSM 5 DX - DSM 5 DSM 5 Diagnosis: 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
--- NOTE | 2017-09-17 14:07 | CARD ---
APPROVED REPORT EKG Measurement Heart [id number] <Conclusion> Normal sinus rhythm Nonspecific T wave abnormality Abnormal ECG
[2017-09-18] MEDS: Multivitamin With Minerals Tab PO SCH (08:49)
[2017-09-18 08:52] VITALS: BP 125/83; PULSE 90
[2017-09-18 09:12] VITALS: RESP 20; TEMP 97.3
[2017-09-18 09:35] LABS: T4 11.2 ug/dl (5.5-11.0)
--- NOTE | 2017-09-18 11:31 | PCM.PYCHDC ---
Mental Status Examination - Mental Status Examination Orientation: Person, Place, Situation Memory: Intact Mood: Neutral Affect: Constricted Speech: Appropriate Attention: WNL Concentration: WNL Association: WNL Fund of Knowledge: WNL Formal Thought Process: No Impairment Description of patient's judgement and insight: poor insight and judgement Psychotic Thoughts and Behaviors: pt denied any current perceptual disturbances non elicited Suicidal Ideation: No Current Homicidal Ideation?: No Discharge Summary - Discharge Note Reason for Hospitalization: pt requested help pt is a 52 ys old male chiatrically admitted for worsening depression and anxiety in the context of chronic opioid abuse. Patient reports that he uses 1.5 grams (approx 10 bags) of heroin (snorts) a day. He reports intermittent thoughts of suicide but denies current suicidal ideation/plan intent. reported decreased sleep and appetite +hopelessness. Denies AH/VH/paranoia/delusions/ HI. Laboratory Data: Abnormal Lab Results 09/18/17 08:43 Triglycerides 80 Cholesterol 139 LDL Cholesterol Direct 76 HDL Cholesterol 37 Thyroxine (T4) 11.2 H TSH 3rd Generation 0.10 L Consultations:: List each consultation separately and include: 1. Reason for request. 2. Findings. 3. Follow-up Summary of Hospital Course include:: 1. Description of specific treatment plan utilized for patients during their course of treatmen. 2. Summarize the time- course for resolution of acute symptoms and/or regressed behaviors. 3. Describe issues identified and worked on during hospitalization. 4. Describe medication utilized. 5. Describe medical problems identified and treated. 6. Reassessment of suicide risk Summary of Hospital Course: pt ON ADMISSION WAS STARTED ON CLONIDINE PROTOCOL FOR OPIATE WITHDRAWAL PT WAS MONITORED FOR SYMPTOMS AND SIGNS OF WITHDRAWAL LEXAPRO WAS STARTED FOR DEPRESSION PT ON SECOND DAY OF ADMISSION REQUESTED TO BE DISCHARGED AGAINST MEDICAL ADVISE ADVISED AND EDUCATED THE PATIENT ABOUT THE RISK OF RELAPSE AND POSSIBLE OVERDOSE,THE POSSIBLE FATAL OUTCOME, PT HOWEVER DECLINED TO STAY FOR FURTHER TREATMENT AND REFFERAL TO REHAB PT AT CURRENT MENTAL STATUS DENIED ANY CURRENT SUICIDAL OR HOMICIDAL IDEATIONS DENIED PERCEPTUAL DISTURBANCES, PT DOES NOT MEET CRITERIA FOR INVOLUNTARY ADMISSSION AND HAS THE CAPACITY TO MAKE DECISION PT AT [facility] MENTAL STATUS NOT DANGER TO SELF OR OTHERS COULD BENIFIT FROM CONTINITY OF TREATMENT HOWEVER DECLINED PT WILL BE DISCHARGED AGAINST MEDICAL ADVISE - Final Diagnosis (DSM 5) Condition upon Discharge: FAIR DSM 5: 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
== END 2017-09-18 11:49 | disposition home or self-care (01) | DRG 748 ==
LOC: H.ER 20:39 → H.ERHOLD 09-17 02:27 → H.PSYCH 09-17 06:10
PROVIDERS: ADMIT Psychiatry & Neurology Psychiatry; ATTEND Psychiatry & Neurology Psychiatry
PROC: HZ57ZZZ Individual Psychotherapy for Substance Abuse Treatment, Motivational Enhancement (ICD-10-PCS; principal; 2017-09-17)
PROC: HZ59ZZZ Individual Psychotherapy for Substance Abuse Treatment, Supportive (ICD-10-PCS; 2017-09-17)
DX: F11.94 Opioid use, unspecified with opioid-induced mood disorder (principal); F17.200 Nicotine dependence, unspecified, uncomplicated; F32.9 Major depressive disorder, single episode, unspecified; J45.909 Unspecified asthma, uncomplicated; F41.9 Anxiety disorder, unspecified

== ENCOUNTER 2017-10-13 16:21 | Emergency (ER) | payer MEDICAID ==
[2017-10-13 16:21] VITALS: BMI 23.0
[2017-10-13] MEDS ORDERED: Albuterol-Ipratrop 3 mg / 0.5 (3 ml) UD INH STA (16:38)
[2017-10-13] MEDS ORDERED: Albuterol-Ipratrop 3 mg / 0.5 (3 ml) UD ONE (16:45)
--- NOTE | 2017-10-13 17:50 | ED PDOC ---
HPI: SOB/CHF/COPD Time Seen by Provider: 10/13/17 16:27 Chief Complaint (Nursing): Shortness Of Breath Chief Complaint (Provider): dyspnea History Per: Patient History/Exam Limitations: no limitations Onset/Duration Of Symptoms: Hrs (4), Gradual Quality: Tightness Exacerbating Factor(s): Exertion, Coughing Current Respiratory Medications: See Home Med List Severity: Moderate Associated Symptoms: Chest Pain, Leg/Calf Pain. denies: Ankle/Leg Swelling Similar Symptoms Previously: + Additional Complaint(s): 52yo male c/o dyspnea when walking to catch a train. States feels himself wheezing, had cough earlier. Also notes chest tightness. Admits to IVDU heroin earlier today L arm injection site. Denies fever today. Past Medical History Reviewed: Historical Data, Nursing Documentation, Vital Signs Vital Signs: Last Vital Signs Temp 98.1 F 10/13/17 18:51 Pulse 109 H 10/13/17 18:51 Resp 20 10/13/17 18:49 BP 96/58 L 10/13/17 18:34 Pulse Ox 97 10/13/17 19:13 - Medical History PMH: Anxiety, Asthma, Depression Denies: Diabetes, Hepatitis, HIV, HTN, Chronic Kidney Disease, Seizures, Sexually Transmitted Disease - Family History Family History: States: Unknown Family Hx - Social History Current smoker - smoking cessation education provided: Yes Alcohol: None Drugs: Opiates (IVDU) - Immunization History Hx Tetanus Toxoid Vaccination: No Hx Influenza Vaccination: No Hx Pneumococcal Vaccination: No - Home Medications Home Medications: Ambulatory Orders Medication Instructions Recorded Albuterol HFA [Ventolin HFA 90 1 puff IH BID PRN #1 unit 07/18/17 mcg/actuation (8 g)] Hydrocortisone 2.5% (Rectal) 30 applic [place] BID #1 tube 08/21/17 [Anusol-HC] - Allergies Allergies/Adverse Reactions: Allergies Allergy/AdvReac Type Severity Reaction Status Date / Time No Known Allergies Allergy Verified 08/21/17 11:56 Review of Systems Constitutional: Negative for: Fever, Chills, Weakness Cardiovascular: Negative for: Chest Pain Respiratory: Positive for: Cough, Shortness of Breath, Wheezing. Negative for: Sputum Gastrointestinal: Negative for: Abdominal Pain Genitourinary Male: Negative for: Dysuria Musculoskeletal: Negative for: Neck Pain, Back Pain Skin: Negative for: Rash, Lesions, Jaundice, Bruising Neurological: Negative for: Weakness, Numbness, Headache Physical Exam - Reviewed Nursing Documentation Reviewed: Yes Vital Signs Reviewed: Yes - Physical Exam Appears: Positive for: Well, Non-toxic, No Acute Distress Head Exam: Positive for: ATRAUMATIC, NORMAL INSPECTION, NORMOCEPHALIC Skin: Positive for: Normal Color, Warm, DRY Eye Exam: Positive for: EOMI, Normal appearance, PERRL ENT: Positive for: Normal ENT Inspection Neck: Positive for: Normal, Painless ROM Cardiovascular/Chest: Positive for: Regular Rate, Rhythm Respiratory: Positive for: Decreased Breath Sounds, Wheezing. Negative for: Respiratory Distress Gastrointestinal/Abdominal: Positive for: Normal Exam, Bowel Sounds, Soft. Negative for: Tenderness, Guarding Back: Positive for: Normal Inspection Extremity: Positive for: Normal ROM, Other (L antecubital area +track meyer nontender) Neurologic/Psych: Positive for: Alert, Oriented - Laboratory Results Result Diagrams: 10/13/17 16:45 10/13/17 16:45 - ECG ECG: Positive for: Interpreted By Ms ECG Rhythm: Positive for: Sinus Tachycardia, Nonspecific Changes Rate: 109 O2 Sat by Pulse Oximetry: 97 Pulse Ox Interpretation: Normal - Radiology X-Ray: Interpreted by Ms X-Ray Interpretation: No Acute Disease Medical Decision Making Medical Decision Making: workup for dyspnea and IVDU initiated Duoneb and solumedrol ordered labs reviewed, elev DDimer chem/cbc pending Angio CT chest ordered endorse Dr Gaxiola pt also reported depressive thoughts denies suicidal thoughts, from drug abuse and homelessness, requesting crisis eval, will obtain after med clr. Disposition - Clinical Impression Clinical Impression: Narcotic abuse, Dyspnea - Patient ED Disposition Is Patient to be Admitted: Transfer of Care - Disposition Disposition: Transfer of Care Disposition Time: 18:51 Condition: FAIR Forms: [employer] (Congolese) Patient Signed Over To: Magdiel Gaxiola Handoff Comments: pending CTA/ labs/ re-eval and crisis
[2017-10-13 17:54] LABS: BASO % 0.4 % (0.0-2.0); EOS # 0.1 K/uL (0.0-0.7); EOS % 1.8 % (0.0-4.0); HEMOGLOBIN 12.1 g/dL (12.0-18.0); LYMPH # 1.4 K/uL (1.0-4.3); LYMPH % 27.3 % (20.0-40.0); MEAN CELL VOLUME 93.4 fl (80.0-94.0); MEAN CORPUSCULAR HEMOGLOBIN 30.3 pg (27.0-31.0); MEAN CORPUSCULAR HGB CONC 32.5 g/dL (33.0-37.0); MEAN PLATELET VOLUME 8.3 fl (7.2-11.7); MONO # 0.4 K/uL (0.0-0.8); MONO % 8.7 % (0.0-10.0); NEUT # 3.2 K/uL (1.8-7.0); NEUT % 61.8 % (50.0-75.0); RED CELL DISTRIBUTION WIDTH 15.9 % (11.5-14.5); WHITE BLOOD COUNT 5.1 K/uL (4.8-10.8)
[2017-10-13 18:08] LABS: B-TYPE NATRIURETIC PEPTIDE 69.6 pg/ml (0-900)
[2017-10-13 18:10] LABS: INR 1.2 (0.9-1.2); PARTIAL THROMBOPLASTIN TIME 33.6 Seconds (25.6-37.1); PROTHROMBIN TIME 13.7 Seconds (9.8-13.1)
[2017-10-13 18:34] VITALS: BP 96/58
[2017-10-13 18:38] LABS: ALBUMIN 3.4 g/dL (3.5-5.0); ALT/SGPT 587 U/L (21-72); AST/SGOT 253 U/L (17-59); BLOOD UREA NITROGEN 13 mg/dl (9-20); GFR AFRICAN-AMERICAN > 60; GFR NON-AFRICAN AMERICAN > 60
[2017-10-13 18:49] VITALS: O2SAT 97
[2017-10-13 18:51] VITALS: PULSE 109
[2017-10-13 18:52] VITALS: RESP 20; TEMP 98.1
[2017-10-13] MEDS ORDERED: Iodixanol 320 MG/ML 100 ML BOTTLE IV ONE ×2 (19:03→21:57)
--- NOTE | 2017-10-13 19:13 | ED PDOC ---
- Laboratory Results Result Diagrams: 10/13/17 16:45 10/13/17 16:45 - ECG O2 Sat by Pulse Oximetry: 97 Medical Decision Making Medical Decision Makin:00 Patient transferred to [place] by Dr. Andrews pending CT chest and crisis evaluation. 21:00 Patient was cleared by crisis diagnosed with depression per Dr. Morales. Patient wants to sign out AMA and is refusing CT angio chest. 21:10 Spoke to patient and he has agreed to have the CT done. 23:20 CT Scan ANGIO CHEST PE PROTOCOL Exam Date: 10/13/17 This imaging exam was performed at [facility] EXAM: CT Angiography Chest With Intravenous Contrast CLINICAL HISTORY: 52 years old, male; Signs and symptoms; Shortness of breath; Additional info : SOB TECHNIQUE: Axial computed tomographic angiography images of the chest with intravenous contrast using pulmonary embolism protocol. All CT scans at this facility use one or more dose reduction techniques, viz.: automated exposure control; ma/kV adjustment per patient size (including targeted exams where dose is matched to indication; i.e. head); or iterative reconstruction technique. MIP reconstructed images were created and reviewed. Coronal and sagittal reformatted images were created and reviewed. CONTRAST: 90 mL of administered intravenously. COMPARISON: CR - CHEST TWO VIEWS (PA/LAT) 2017-10-13 17:38 FINDINGS: Pulmonary arteries: No pulmonary embolism. Aorta: No aneurysm. No dissection. Lungs: Minimal atelectasis. No consolidation. Few scattered minimal groundglass opacities. Few pulmonary nodules, up to 0.4 cm. Pleural space: No significant effusion. No pneumothorax. Heart: No cardiomegaly. No significant pericardial effusion. Bones/joints: Degenerative changes of spine. No acute fracture. Soft tissues: Minimal gynecomastia. Lymph nodes: No pathologically enlarged lymph nodes. IMPRESSION: 1. No CT evidence of pulmonary embolism. 2. Groundglass opacities, nonspecific. 3. Pulmonary nodules. For low-risk patients, no follow-up is necessary. For high-risk patients (smoking history or other known risk factors) an optional CT at 12 months could be performed. 4. Incidental/non-acute findings are described above. Disposition Doctor Will See Patient In The: Office Counseled Patient/Family Regarding: Studies Performed, Diagnosis, Need For Followup - Clinical Impression Clinical Impression: Narcotic abuse, Dyspnea, Chest pain, Asthma - POA Present On Arrival: None - Disposition Referrals: [facility] [Outside] Disposition: Routine/Home Disposition Time: 23:33 Condition: GOOD Additional Instructions: Take your medications as instructed. Follow up with your PCP in 2-3 days. You are leaving against medical advice. MENTAL HEALTH F/U AT [facility] [address] [facility] [phone] FOLLOW UP AT [facility] [address] [facility] [phone] Prescriptions: Albuterol 0.083% [Albuterol Sulfate 3 Ml] 0.5 ml IH Q4 PRN #20 neb PRN Reason: Wheezing Albuterol HFA [Ventolin HFA 90 mcg/actuation (8 g)] 1 puff IH BID PRN #1 unit PRN Reason: Wheezing predniSONE [predniSONE Tab] 60 mg PO DAILY 5 Days tab Instructions: Asthma in Adults, Chest Pain, Opioid Use Disorder Against Medical Advice - AMA Patient Left Against Medical Advice: The patient declines admission to the hospital and wishes to leave the Emergency Department. This action is against my medical advice. This decision was made with informed refusal. The patient was told that admission to the hospital is necessary. Explanation of the reasons why were discussed. The risks of leaving were explained to the patient and include, but are not limited to, worsening of known or currently unknown conditions, permanent disability and from undiagnosed or untreated conditions. The patient has the capacity to make this informed decision and understands my explanation of the current medical problem and risks of leaving. The patient voluntarily accepts these risks and signed an AMA form documenting our conversation. The patient was given the opportunity to ask questions and reconsider. The patient was encouraged to return to the Emergency Department at any time for further care. AMA statement above is incorrect.
--- NOTE | 2017-10-13 20:06 | CARD ---
APPROVED REPORT EKG Measurement Heart [id number] <Conclusion> Sinus tachycardia Possible Left atrial enlargement Borderline ECG
[2017-10-13 22:37] LABS: URINE BILIRUBIN NEGATIVE (NEGATIVE); URINE BLOOD NEGATIVE (NEGATIVE); URINE CALCIUM OXALATE CRYSTALS RARE /hpf (<OCC); URINE CLARITY SLIGHTY-CLOUDY (Clear); URINE COLOR AMBER (YELLOW); URINE GLUCOSE (UA) NEG (Normal); URINE LEUKOCYTE ESTERASE NEG Leu/uL (Negative); URINE PROTEIN NEGATIVE (NEGATIVE)
[2017-10-13 22:42] LABS: BARBITURATES, UR NEGATIVE (NEGATIVE); BENZODIAZEPINES, UR NEGATIVE (NEGATIVE); OPIATES, UR POSITIVE (NEGATIVE); PHENCYCLIDINE, UR NEGATIVE (NEGATIVE)
--- NOTE | 2017-10-13 23:20 | CT ---
EXAM: CT Angiography Chest With Intravenous Contrast CLINICAL HISTORY: 52 years old, male; Signs and symptoms; Shortness of breath; Additional info: SOB TECHNIQUE: Axial computed tomographic angiography images of the chest with intravenous contrast using pulmonary embolism protocol. All CT scans at this facility use one or more dose reduction techniques, viz.: automated exposure control; ma/kV adjustment per patient size (including targeted exams where dose is matched to indication; i.e. head); or iterative reconstruction technique. MIP reconstructed images were created and reviewed. Coronal and sagittal reformatted images were created and reviewed. CONTRAST: 90 mL of [id number] administered intravenously. COMPARISON: CR - CHEST TWO VIEWS (PA/LAT) 2017-10-13 17:38 FINDINGS: Pulmonary arteries: No pulmonary embolism. Aorta: No aneurysm. No dissection. Lungs: Minimal atelectasis. No consolidation. Few scattered minimal groundglass opacities. Few pulmonary nodules, up to 0.4 cm. Pleural space: No significant effusion. No pneumothorax. Heart: No cardiomegaly. No significant pericardial effusion. Bones/joints: Degenerative changes of spine. No acute fracture. Soft tissues: Minimal gynecomastia. Lymph nodes: No pathologically enlarged lymph nodes. IMPRESSION: 1. No CT evidence of pulmonary embolism. 2. Groundglass opacities, nonspecific. 3. Pulmonary nodules. For low-risk patients, no follow-up is necessary. For high-risk patients (smoking history or other known risk factors) an optional CT at 12 months could be performed. 4. Incidental/non-acute findings are described above.
--- NOTE | 2017-10-14 08:54 | RAD ---
HISTORY: cough COMPARISON: Chest radiograph dated 09/17/2017 TECHNIQUE: Chest PA and lateral FINDINGS: LUNGS: No active pulmonary disease. PLEURA: No significant pleural effusion identified. No pneumothorax apparent. CARDIOVASCULAR: Normal. OSSEOUS STRUCTURES: Unchanged. VISUALIZED UPPER ABDOMEN: Normal. OTHER FINDINGS: None. IMPRESSION: No active disease.
== END 2017-10-14 00:13 | disposition home or self-care (01) ==
LOC: H.ER 16:21
DX: F11.10 Opioid abuse, uncomplicated (principal); F17.200 Nicotine dependence, unspecified, uncomplicated; Z59.0 Homelessness; Z86.59 Personal history of other mental and behavioral disorders; R06.00 Dyspnea, unspecified
CPT/HCPCS: 71046; 71275; 80053; 80324; 80345; 80346; 80349; 80353; 80358; 80361; 81003; 83880; 83992; 84484; 85025; 85378; 85610; 85730; 93005; 96374; J2930; Q9967

== ENCOUNTER → 2017-10-18 | Emergency (ER) | payer MEDICAID ==
[~2017-10-18] MED LIST: Tmp-Smz 800 mg-160 mg DS Tab ONE; Tmp-Smz 800 mg-160 mg DS Tab PO STA
[2017-10-18 11:20] VITALS: O2SAT 98; BMI 21.9
--- NOTE | 2017-10-18 12:19 | ED PDOC ---
Upper Extremity Pain/Injury History Per: Patient History/Exam Limitations: no limitations Onset/Duration Of Symptoms: Days (5) Additional Complaint(s): 52 yo M with h/o heroin abuse, c/o redness, swelling and pain to the R antecubital fossa, admits to self injecting heroin to the area 5 days ago. Reports low grade of fever of 100.1 at home yesterday. Reports no chills, trauma , injury, FB sensation, numbness, decrease in ROM, other injury or other complaints. <Alem Elizabeth PA-C - Last Filed: 10/18/17 17:28> <Magdiel Gaxiola - Last Filed: 10/18/17 18:07> Time Seen by Provider: 10/18/17 11:26 Chief Complaint (Nursing): Upper Extremity Problem/Injury Supervising Attending Note - Supervising Attending Note The Documented history was done by the: Physician Real Estate Economist The documented physical exam was done by the: Physician Real Estate Economist The documented procedures were done by the: Physician Real Estate Economist - Attestation: I have fully participated in the care of the patient.: Yes I have reviewed all pertinent clinical information: Yes <Magdiel Gaxiola - Last Filed: 10/18/17 18:07> Past Medical History Vital Signs: Last Vital Signs Temp 98.2 F 10/18/17 11:18 Pulse 80 10/18/17 11:18 Resp 16 10/18/17 11:18 BP 111/66 10/18/17 11:18 Pulse Ox 98 10/18/17 11:18 - Medical History PMH: Anxiety, Asthma, Depression Denies: Diabetes, Hepatitis, HIV, HTN, Chronic Kidney Disease, Seizures, Sexually Transmitted Disease - Family History Family History: States: Unknown Family Hx - Immunization History Hx Tetanus Toxoid Vaccination: Yes (within the last 2 years) Hx Influenza Vaccination: No Hx Pneumococcal Vaccination: No <Alem Elizabeth PA-C - Last Filed: 10/18/17 17:28> Vital Signs: Last Vital Signs Temp 97 F L 10/18/17 12:55 Pulse 78 10/18/17 12:55 Resp 19 10/18/17 12:55 BP 120/78 10/18/17 12:55 Pulse Ox 98 03/17/18 17:30 <Magdiel Gaxiola - Last Filed: 10/18/17 18:07> - Home Medications Home Medications: Ambulatory Orders Medication Instructions Recorded Albuterol 0.083% [Albuterol 0.5 ml IH Q4 PRN #20 neb 10/13/17 Sulfate 3 Ml] Albuterol HFA [Ventolin HFA 90 1 puff IH BID PRN #1 unit 10/13/17 mcg/actuation (8 g)] predniSONE [predniSONE Tab] 60 mg PO DAILY 5 Days tab 10/13/17 Naproxen 500 mg PO BID PRN #20 tablet 10/18/17 Sulfamethoxazole/Trimethoprim 2 tab PO BID #28 tab 10/18/17 [Bactrim DS 800 mg-160 mg] - Allergies Allergies/Adverse Reactions: Allergies Allergy/AdvReac Type Severity Reaction Status Date / Time No Known Allergies Allergy Verified 10/18/17 17:40 Review of Systems Constitutional: Negative for: Fever, Chills, Weakness, Malaise Cardiovascular: Negative for: Chest Pain, Palpitations Respiratory: Negative for: Cough, Shortness of Breath Musculoskeletal: Positive for: Arm Pain. Negative for: Neck Pain, Back Pain, Hand Pain Skin: Negative for: Rash, Lesions Neurological: Negative for: Weakness, Numbness <Alem Elizabeth PA-C - Last Filed: 10/18/17 17:28> Physical Exam - Reviewed Nursing Documentation Reviewed: Yes - Physical Exam Appears: Positive for: Well, In Acute Distress (mild painful distress) Head Exam: Positive for: ATRAUMATIC, NORMAL INSPECTION Skin: Positive for: Normal Color, Warm, Dry. Negative for: Rash Pulses-Radial (R): 2+ Extremity: Positive for: Normal ROM, Capillary Refill (normal), Other (+3x4 cm erythematous, tender, slightly fluctuant mass in the the R antecubital area with no d/c, no surrounding erythema, and no red streaks noted. Rest of the extremities exam : FROM with no tenderness and no deformity.). Negative for: Deformity Lymphatic: Negative for: Adenopathy Neurologic/Psych: Positive for: Alert, teacher cclc II-XII, Oriented (x3). Negative for : Motor/Sensory Deficits <Alem Elizabeth PA-C - Last Filed: 10/18/17 17:28> - ECG O2 Sat by Pulse Oximetry: 98 <Alem Elizabeth PA-C - Last Filed: 10/18/17 17:28> Medical Decision Making Medical Decision Making: Impression : abscess of the R antecubital fossa Dx of abscess d/w the patient. Advised of the need for I&D. Patient informed that he will be given local anesthesia, lidocaine, prior to procedure for pain control, which he agrees to. Abscess I&D: Prior to procedure "time out" was called in order to confirm the correct patient and procedure. Through aseptic technique, local anesthesia, lidocaine 1% , was administered to abscess (located at the R antecubital fossa), incision ( using a #11 blade) was made and drainage of abscess was performed by JEANETTE which produced purulent material. Patient is refusing to wound packing insertion of the I&D procedure. Patient is refusing packing insertion to his wound, he is requesting for pain medication, patient offered another dose of lidocaine, which he is refusing, asking for dilaudid. Patient continues to specifically ask for dilaudid for pain. Considering patient's history with heroin abuse and addiction, patient offered alternatives to opiates for pain management, patient offered toradol IM and tylenol, however the patient is still asking for dilaudid. ER MD made aware , who came and evaluated the patient. ER MD agrees with current management. Offers the patient toradol for pain. Patient is becoming angry, disruptive and threatening to staff members and ER MD. Patient advised that opiate medications are not necessary and there are other means available to alleviate the patient' s pain. Patient also offered nitrous oxide, states that dilaudid helps him for his pain. Patient advised that dilaudid will not be provided to him today at this visit and offered the above alternatives, the patient is agreeable to toradol, however he continues to be loud, disruptive, uncooperative, he is threatening PA and ER MD. Patient is walking up to the nurses and doctor station , yelling at the staff, threatening PA and ER MD. Security called, escorted the patient back to his room. Patient was medicated with toradol IM 60 mg. Patient offered packing insertion to his wound, but is still refusing since he was not given dilaudid, he continues to be verbally abusive to PA, he is being manipulative, stating that "I was cut cold turkey." Patient is also making racist comments, patient asked to refrain from racist remarks and to be cooperative. Patient's wound was cleaned, bacitracin and clean dressing applied. Patient was escorted out of the ER by security. Patient instructed to follow-up with pmd or the clinic in 1-2 days without fail. Advised to take medication as prescribed. Return to the emergency room at any time for any new or worsening symptoms. <Alem Elizabeth PA-C - Last Filed: 10/18/17 17:28> Disposition - Patient ED Disposition Is Patient to be Admitted: No Counseled Patient/Family Regarding: Diagnosis, Need For Followup, Rx Given - Disposition Disposition: Routine/Home Disposition Time: 12:00 <Alem Elizabeth PA-C - Last Filed: 10/18/17 17:28> <Magdiel Gaxiola - Last Filed: 10/18/17 18:07> - Clinical Impression Clinical Impression: Abscess - Disposition Referrals: [facility] [Outside] Condition: STABLE Additional Instructions: You were treated for an abscess. The emergency medical care you received today was directed at your acute symptoms. If you were prescribed any medication, please fill it and take as directed. It may take several days for your symptoms to resolve. Return to the Emergency Department if your symptoms worsen, do not improve, or if you have any other problems. Please contact your doctor or the clinic after 2 days for re-evaluation and follow up. Bring any paperwork you were given at discharge with you along with any medications you are taking to your follow up visit. Our treatment cannot replace ongoing medical care by a primary care provider (PCP) outside of the emergency department. Thank you for allowing the [facility] team to be part of your care today. Prescriptions: Naproxen 500 mg PO BID PRN #20 tablet PRN Reason: Pain, Moderate (4-7) Sulfamethoxazole/Trimethoprim [Bactrim DS 800 mg-160 mg] 2 tab PO BID #28 tab Instructions: Skin Abscess Forms: [employer] (Equatorial [place]an) - PA / PERINATAL COORDINATOR / Resident Statement MD/DO has reviewed & agrees with the documentation as recorded. <Alem Elizabeth PA-C - Last Filed: 10/18/17 17:28>
[2017-10-18 12:56] VITALS: BP 120/78; PULSE 78; RESP 19; TEMP 97
== END | disposition home or self-care (01) ==
LOC: H.ER 11:00
DX: L02.413 Cutaneous abscess of right upper limb (principal); F11.10 Opioid abuse, uncomplicated; Z86.59 Personal history of other mental and behavioral disorders; J45.909 Unspecified asthma, uncomplicated
CPT/HCPCS: 96372; 99283; J1885

== ENCOUNTER 2017-11-25 10:29 | Emergency (ER) | payer OTHER, MEDICAID ==
[2017-11-25 10:51] VITALS: BP 119/78; PULSE 66; RESP 16; TEMP 98.4; O2SAT 99; BMI 22.4
--- NOTE | 2017-11-25 11:05 | ED PDOC ---
HPI: Wound Care - HPI Time Seen by Provider: 11/25/17 10:54 History Per: Patient Additional Complaint(s): s/p I&D abscess right forearm Friday. Here for packing removal. Denies fever or drainage Past Medical History Vital Signs: Last Vital Signs Temp 98.4 F 11/25/17 10:50 Pulse 66 11/25/17 10:50 Resp 16 11/25/17 10:50 BP 119/78 11/25/17 10:50 Pulse Ox 99 11/25/17 10:50 - Medical History PMH: Anxiety, Asthma, Depression Denies: Diabetes, Hepatitis, HIV, HTN, Chronic Kidney Disease, Seizures, Sexually Transmitted Disease - Family History Family History: States: Unknown Family Hx - Immunization History Hx Tetanus Toxoid Vaccination: Yes (within the last 2 years) Hx Influenza Vaccination: No Hx Pneumococcal Vaccination: No - Home Medications Home Medications: Ambulatory Orders Medication Instructions Recorded Albuterol 0.083% [Albuterol 0.5 ml IH Q4 PRN #20 neb 10/13/17 Sulfate 3 Ml] Albuterol HFA [Ventolin HFA 90 1 puff IH BID PRN #1 unit 10/13/17 mcg/actuation (8 g)] predniSONE [predniSONE Tab] 60 mg PO DAILY 5 Days tab 10/13/17 Naproxen 500 mg PO BID PRN #20 tablet 10/18/17 Sulfamethoxazole/Trimethoprim 2 tab PO BID #28 tab 10/18/17 [Bactrim DS 800 mg-160 mg] - Allergies Allergies/Adverse Reactions: Allergies Allergy/AdvReac Type Severity Reaction Status Date / Time No Known Allergies Allergy Verified 11/25/17 10:59 Review of Systems Constitutional: Negative for: Fever Skin: Positive for: Other (Abscess) Physical Exam - Physical Exam Appears: Positive for: Non-toxic, No Acute Distress Extremity: Positive for: Other (Right forearm/anticubital area. Packing removed. No purulence noted scant serosanguinous drainage. Minimal surrounding erythema. No warmth.) - ECG O2 Sat by Pulse Oximetry: 99 Disposition - Clinical Impression Clinical Impression: Encounter for wound re-check - Patient ED Disposition Is Patient to be Admitted: No Counseled Patient/Family Regarding: Diagnosis, Need For Followup - Disposition Referrals: [facility] [Outside] Disposition: Routine/Home Disposition Time: 11:05 Condition: FAIR Instructions: Wound Care
== END 2017-11-25 11:31 | disposition home or self-care (01) ==
LOC: H.ER 10:29
DX: Z48.00 Encounter for change or removal of nonsurgical wound dressing (principal)

== ENCOUNTER 2017-12-04 13:27 | Emergency (ER) | payer MEDICAID, OTHER ==
[2017-12-04 13:28] VITALS: BMI 21.9
[2017-12-04 13:40] VITALS: BP 145/77; PULSE 73; RESP 18; TEMP 98.7; O2SAT 97
--- NOTE | 2017-12-04 13:54 | ED PDOC ---
HPI: Skin/Bite Injury Time Seen by Provider: 12/04/17 13:46 Chief Complaint (Nursing): Abnormal Skin Integrity Chief Complaint (Provider): Abscess History Per: Patient History/Exam Limitations: no limitations Onset/Duration Of Symptoms: Days Current Symptoms Are (Timing): Still Present Location Of Injury: Left: Arm Additional Complaint(s): 52 y/o male presents to the ED with abscess to left arm x 2 days. Patient admits to IV drug use and states that last week he was admitted at [facility] for abscess to right arm. He was discharged on doxycyline. He states right arm abscesses have healed but he now has 2 new abscesses to left arm. He denies fever, chills, active drainage or bleeding. Patient states he has not been taking the doxycyline as directed. PMD: None provided Past Medical History Reviewed: Historical Data, Nursing Documentation, Vital Signs Vital Signs: Last Vital Signs Temp 98.7 F 12/04/17 13:36 Pulse 73 12/04/17 13:36 Resp 18 12/04/17 13:36 BP 145/77 12/04/17 13:36 Pulse Ox 97 12/04/17 14:02 - Medical History PMH: Anxiety, Asthma, Depression, Sexually Transmitted Disease - Surgical History Surgical History: No Surg Hx - Family History Family History: States: No Known Family Hx - Living Arrangements Living Arrangements: Alone - Social History Current smoker - smoking cessation education provided: No Alcohol: None Drugs: Opiates (IV heroin) - Immunization History Hx Tetanus Toxoid Vaccination: Yes (within the last 2 years) Hx Influenza Vaccination: No Hx Pneumococcal Vaccination: No - Home Medications Home Medications: Ambulatory Orders Medication Instructions Recorded Albuterol 0.083% [Albuterol 0.083% 0.5 ml IH Q4 PRN #20 neb 10/13/17 Inhal Jennifer (2.5 mg/3 ml) UD] Albuterol HFA [Ventolin HFA 90 1 puff IH BID PRN #1 unit 10/13/17 mcg/actuation (8 g)] predniSONE [predniSONE Tab] 60 mg PO DAILY 5 Days tab 10/13/17 Naproxen 500 mg PO BID PRN #20 tablet 10/18/17 Cephalexin [cephalexin] 500 mg PO Q8H 10 Days #30 cap 12/02/17 Doxycycline Hyclate [Doryx] 100 mg PO BID 10 Days #20 cap 12/02/17 Clindamycin [Cleocin] 300 mg PO QID #28 cap 12/04/17 - Allergies Allergies/Adverse Reactions: Allergies Allergy/AdvReac Type Severity Reaction Status Date / Time No Known Allergies Allergy Verified 12/04/17 13:35 Review of Systems ROS Statement: Except As Marked, All Systems Reviewed And Found Negative Constitutional: Negative for: Fever, Chills Skin: Positive for: Other (absess to left arm ) Physical Exam - Reviewed Nursing Documentation Reviewed: Yes Vital Signs Reviewed: Yes - Physical Exam Appears: Positive for: Well, Non-toxic, No Acute Distress Head Exam: Positive for: ATRAUMATIC, NORMAL INSPECTION, NORMOCEPHALIC Skin: Positive for: Normal Color. Negative for: Rash Eye Exam: Positive for: EOMI, Normal appearance, PERRL Neck: Positive for: Normal Cardiovascular/Chest: Positive for: Regular Rate, Rhythm Respiratory: Positive for: CNT, Normal Breath Sounds Extremity: Positive for: Normal ROM, Other (Two 2 cm indurated abscess to volar aspect of left forearm with no fluctuance or central pointing. No diffuse cellulitis, N/V intact) Neurologic/Psych: Positive for: Alert, Oriented (x3) - ECG O2 Sat by Pulse Oximetry: 97 Pulse Ox Interpretation: Normal Medical Decision Making Medical Decision Makin52 year old with left arm abscess x 2 No I&D indicated at this time as abscesses are markedly indurated with no central pointing or fluctuance. Patient was given rx clindamcyin. Advised warm compresses with epsom salts and wound re-check in 2 days. Patient was given list of local detox facilities. Disposition - Clinical Impression Clinical Impression: Abscess, Narcotic abuse - Patient ED Disposition Is Patient to be Admitted: No Counseled Patient/Family Regarding: Diagnosis, Need For Followup, Rx Given - Disposition Referrals: [facility] [Outside] Disposition: Routine/Home Disposition Time: 14:04 Condition: STABLE Additional Instructions: Apply warm compresses with Epsom salts to affected area as often as possible. Take antibiotics as directed. Wound recheck in 2 days. Prescriptions: Clindamycin [Cleocin] 300 mg PO QID #28 cap Instructions: Skin Abscess, Drug Abuse and Drug Addiction (DC) Forms: [employer] (Turkish)
== END 2017-12-04 14:37 | disposition home or self-care (01) ==
LOC: H.ER 13:27
DX: L02.414 Cutaneous abscess of left upper limb (principal); F11.10 Opioid abuse, uncomplicated; F32.9 Major depressive disorder, single episode, unspecified; F41.9 Anxiety disorder, unspecified; J45.909 Unspecified asthma, uncomplicated

== ENCOUNTER 2017-12-17 22:06 | Emergency (ER) | payer MEDICAID, OTHER ==
[2017-12-17 22:06] VITALS: BMI 21.9
[2017-12-17 22:22] VITALS: O2SAT 98
[2017-12-17 23:08] LABS: BASO # 0.1 K/uL (0.0-0.2); BASO % 0.7 % (0.0-2.0); EOS # 0.4 K/uL (0.0-0.7); EOS % 4.4 % (0.0-4.0); HEMOGLOBIN 11.5 g/dL (12.0-18.0); LYMPH # 1.8 K/uL (1.0-4.3); LYMPH % 19.3 % (20.0-40.0); MEAN CELL VOLUME 92.3 fl (80.0-94.0); MEAN CORPUSCULAR HEMOGLOBIN 31.2 pg (27.0-31.0); MEAN CORPUSCULAR HGB CONC 33.8 g/dL (33.0-37.0); MEAN PLATELET VOLUME 7.8 fl (7.2-11.7); MONO # 0.6 K/uL (0.0-0.8); MONO % 6.7 % (0.0-10.0); NEUT # 6.5 K/uL (1.8-7.0); NEUT % 68.9 % (50.0-75.0); RBC 3.69 Mil/uL (4.40-5.90); WHITE BLOOD COUNT 9.5 K/uL (4.8-10.8)
[2017-12-17 23:14] LABS: BLOOD UREA NITROGEN 16 mg/dl (9-20); GFR AFRICAN-AMERICAN > 60; GFR NON-AFRICAN AMERICAN > 60
[2017-12-17] MEDS ORDERED: Albuterol-Ipratrop 3 mg / 0.5 (3 ml) UD INH STA (23:15)
[2017-12-17] MEDS ORDERED: Albuterol-Ipratrop 3 mg / 0.5 (3 ml) UD ONE (23:24)
--- NOTE | 2017-12-17 23:38 | ED PDOC ---
HPI: Chest Pain Time Seen by Provider: 12/17/17 22:31 Chief Complaint (Nursing): Chest Pain Chief Complaint (Provider): Chest pain History Per: Patient History/Exam Limitations: no limitations Onset/Duration Of Symptoms: Sudden Onset Current Symptoms Are (Timing): Still Present Quality: "Pain" Associated Symptoms: denies: Nausea, Diaphoresis Additional History Per: Patient Additional Complaint(s): 52yo male, with history of asthma, presents to ED with complaints of sudden onset chest pain since 8:30PM today. 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 He denies any nausea, vomiting or diaphoresis; patient does report mild shortness of breath for which he used his albuterol inhaler with mild relief. He was evaluated at [facility] ER yesterday for similar symptoms and was discharged home. Patient was also admitted to this facility 10 days ago with similar complaints. He has no other medical complaints. PMD: None provided Past Medical History Reviewed: Historical Data, Nursing Documentation, Vital Signs Vital Signs: Last Vital Signs Temp 99.7 F H 12/17/17 22:19 Pulse 84 12/17/17 22:19 Resp 16 12/17/17 22:19 BP 108/61 12/17/17 22:19 Pulse Ox 98 12/17/17 23:43 - Medical History PMH: Anxiety, Asthma, Depression, Sexually Transmitted Disease Denies: Diabetes, Hepatitis, HIV, HTN, Chronic Kidney Disease, Seizures - Surgical History Surgical History: No Surg Hx - Family History Family History: States: No Known Family Hx, Unknown Family Hx - Social History Current smoker - smoking cessation education provided: No Alcohol: None Drugs: Denies - Immunization History Hx Tetanus Toxoid Vaccination: No Hx Influenza Vaccination: No Hx Pneumococcal Vaccination: No - Home Medications Home Medications: Ambulatory Orders Medication Instructions Recorded Albuterol Sulfate [Ventolin Hfa] 1 puff IH PRN PRN 12/07/17 Clindamycin [Cleocin] 400 mg PO QID 12/07/17 Naprosyn 500 mg PO DAILY 12/16/17 Naproxen 375 mg PO TIDPC #20 tablet 12/17/17 - Allergies Allergies/Adverse Reactions: Allergies Allergy/AdvReac Type Severity Reaction Status Date / Time No Known Allergies Allergy Verified 12/17/17 22:19 Review of Systems ROS Statement: Except As Marked, All Systems Reviewed And Found Negative Cardiovascular: Positive for: Chest Pain Respiratory: Positive for: Shortness of Breath Physical Exam - Reviewed Nursing Documentation Reviewed: Yes Vital Signs Reviewed: Yes - Physical Exam Appears: Positive for: Non-toxic, No Acute Distress Head Exam: Positive for: ATRAUMATIC, NORMAL INSPECTION, NORMOCEPHALIC Skin: Positive for: Normal Color, Warm Eye Exam: Positive for: Normal appearance Neck: Positive for: Normal, Supple Cardiovascular/Chest: Positive for: Regular Rate, Rhythm, Chest Non Tender Respiratory: Positive for: Wheezing (mild expiratory wheeze bilaterally) Gastrointestinal/Abdominal: Positive for: Normal Exam, Soft Back: Positive for: Normal Inspection Extremity: Positive for: Normal ROM Neurologic/Psych: Positive for: Alert, Oriented. Negative for: Motor/Sensory Deficits - Laboratory Results Result Diagrams: 12/17/17 22:50 12/17/17 22:50 - ECG ECG: Positive for: Interpreted By Me, Viewed By Me ECG Rhythm: Positive for: Sinus Rhythm. Negative for: ST/T Changes Rate: 80 O2 Sat by Pulse Oximetry: 98 (RA) Pulse Ox Interpretation: Normal Medical Decision Making Medical Decision Making: Impression: Chest pain Plan: -- UDS -- EKG -- Duoneb 3ml INH Prior records reviewed, patient with negative workups regarding similar symptoms both here and at [facility]. Time: 0216 Patient reports feeling much better and is stable for discharge home. Patient instructed to follow up with his PMD in 2-3 days. Scribe Attestation: Documented by Becki Coello, acting as a scribe for Pio Morales MD. Provider Scribe Attestation: All medical record entries made by the Scribe were at my direction and personally dictated by me. I have reviewed the chart and agree that the record accurately reflects my personal performance of the history, physical exam, medical decision making, and the department course for this patient. I have also personally directed, reviewed, and agree with the discharge instructions and disposition. Disposition - Clinical Impression Clinical Impression: Atypical chest pain, Asthma - Disposition Disposition: Routine/Home Disposition Time: 02:16 Condition: STABLE Instructions: Chest Pain That Is Not Caused by the Heart (DC) Forms: [employer] (Setswana)
[2017-12-18 06:38] VITALS: BP 110/65; PULSE 77; RESP 14; TEMP 98.3
--- NOTE | 2017-12-18 14:06 | CARD ---
APPROVED REPORT EKG Measurement Heart [id number] <Conclusion> Normal sinus rhythm Possible Left atrial enlargement Borderline ECG
== END 2017-12-18 06:37 | disposition home or self-care (01) ==
LOC: H.ER 22:06
DX: R07.9 Chest pain, unspecified (principal); J45.909 Unspecified asthma, uncomplicated; Z86.59 Personal history of other mental and behavioral disorders

== ENCOUNTER 2017-12-23 23:37 | Emergency (ER) | payer OTHER ==
[2017-12-23 23:37] VITALS: BMI 21.9
[2017-12-23 23:45] VITALS: BP 119/84; PULSE 82; RESP 16; TEMP 98.2; O2SAT 98
[2017-12-24] MEDS ORDERED: Albuterol-Ipratrop 3 mg / 0.5 (3 ml) UD INH STA ×3 (00:09)
--- NOTE | 2017-12-24 00:13 | ED PDOC ---
HPI: Asthma Time Seen by Provider: 12/23/17 23:39 Chief Complaint (Nursing): Cough, Cold, Congestion History Per: Patient History/Exam Limitations: no limitations Onset/Duration Of Symptoms: Days Additional Complaint(s): Hx of asthma (no intubations) presenting with asthma exacerbation, states that he has been wheezing for the past 3 days, unsure of trigger, thinks it may be the weather. States he's been using his ventolin without relief. Dry cough, no fevers, chills, no chest pain, shortness of breath. Past Medical History Reviewed: Historical Data, Nursing Documentation Vital Signs: Last Vital Signs Temp 98.2 F 12/23/17 23:42 Pulse 82 12/23/17 23:42 Resp 16 12/23/17 23:42 BP 119/84 12/23/17 23:42 Pulse Ox 98 12/23/17 23:42 - Medical History PMH: Anxiety, Asthma, Depression, Sexually Transmitted Disease Denies: Diabetes, Hepatitis, HIV, HTN, Chronic Kidney Disease, Seizures - Family History Family History: States: Unknown Family Hx - Immunization History Hx Tetanus Toxoid Vaccination: No Hx Influenza Vaccination: No Hx Pneumococcal Vaccination: No - Home Medications Home Medications: Ambulatory Orders Medication Instructions Recorded Albuterol Sulfate [Ventolin Hfa] 1 puff IH PRN PRN 12/07/17 Clindamycin [Cleocin] 400 mg PO QID 12/07/17 Naprosyn 500 mg PO DAILY 12/16/17 Naproxen 375 mg PO TIDPC #20 tablet 12/17/17 predniSONE [predniSONE Tab] 60 mg PO DAILY #9 tab 12/24/17 - Allergies Allergies/Adverse Reactions: Allergies Allergy/AdvReac Type Severity Reaction Status Date / Time No Known Allergies Allergy Verified 12/23/17 23:42 Review of Systems ROS Statement: Except As Marked, All Systems Reviewed And Found Negative Respiratory: Positive for: Wheezing Physical Exam - Reviewed Nursing Documentation Reviewed: Yes Vital Signs Reviewed: Yes - Physical Exam Appears: Positive for: Well, Non-toxic, No Acute Distress Head Exam: Positive for: ATRAUMATIC, NORMAL INSPECTION, NORMOCEPHALIC Skin: Positive for: Normal Color, Warm, DRY Eye Exam: Positive for: EOMI, Normal appearance, PERRL ENT: Positive for: Normal ENT Inspection Neck: Positive for: Normal, Painless ROM Cardiovascular/Chest: Positive for: Regular Rate, Rhythm Respiratory: Positive for: Normal Breath Sounds, Wheezing. Negative for: Rales , Rhonchi, Respiratory Distress Gastrointestinal/Abdominal: Positive for: Normal Exam, Soft Back: Positive for: Normal Inspection Extremity: Positive for: Normal ROM Neurologic/Psych: Positive for: Alert, Oriented - ECG O2 Sat by Pulse Oximetry: 98 Pulse Ox Interpretation: Normal Medical Decision Making Medical Decision Makin A/P: Hx of asthma presenting with wheezing -mild/moderate exacerbation, no acute distress, no resp distress -will provide nebs, prednisone 2AM -Patient no longer wheezing, comfortable appearing, no respiratory distress -will dc home with prednisone -advised patient to stop smoking Disposition - Clinical Impression Clinical Impression: Asthma - Patient ED Disposition Is Patient to be Admitted: No - Disposition Referrals: [facility] [Outside] [facility] [Outside] Disposition: Routine/Home Disposition Time: 02:18 Condition: IMPROVED Prescriptions: predniSONE [predniSONE Tab] 60 mg PO DAILY #9 tab Instructions: Asthma in Adults Forms: [employer] (Ukrainian)
[2017-12-24] MEDS ORDERED: Albuterol-Ipratrop 3 mg / 0.5 (3 ml) UD ONE (00:39)
== END 2017-12-24 02:45 | disposition home or self-care (01) ==
LOC: H.ER 23:37
DX: J45.901 Unspecified asthma with (acute) exacerbation (principal); Z86.59 Personal history of other mental and behavioral disorders

== ENCOUNTER 2018-01-09 12:39 | Emergency (ER) | payer OTHER ==
[2018-01-09 12:39] VITALS: BMI 21.9
[2018-01-09 12:51] VITALS: RESP 18; O2SAT 99
[2018-01-09] MEDS ORDERED: Lidocaine 1% Inj (20ml) ONE (12:54)
--- NOTE | 2018-01-09 12:54 | ED PDOC ---
HPI: General Adult Time Seen by Provider: 01/09/18 12:43 Chief Complaint (Nursing): Abnormal Skin Integrity Chief Complaint (Provider): right arm abscess History Per: Patient History/Exam Limitations: no limitations Current Symptoms Are (Timing): Still Present Additional Complaint(s): 53 year old male presents to ED complaining of an abscess to right arm for 3 days. Patient states he is an IV heroin user. He tried to "pop" the abscess with a needle but states it did not drain any pus. He denies fever or chills. Patient is up to date with tetanus. PCP: Dr. Taylor in [facility] Past Medical History Reviewed: Historical Data, Nursing Documentation, Vital Signs Vital Signs: Last Vital Signs Temp 98.9 F 01/09/18 12:48 Pulse 20 L 01/09/18 12:48 Resp 18 01/09/18 12:48 BP 118/68 01/09/18 12:48 Pulse Ox 99 01/09/18 13:26 - Medical History PMH: Anxiety, Asthma, Depression, Sexually Transmitted Disease - Surgical History Surgical History: No Surg Hx - Family History Family History: States: No Known Family Hx - Living Arrangements Living Arrangements: Alone - Social History Current smoker - smoking cessation education provided: Yes Alcohol: None Drugs: Opiates (IV heroin) - Immunization History Hx Tetanus Toxoid Vaccination: Yes - Home Medications Home Medications: Ambulatory Orders Medication Instructions Recorded Albuterol Sulfate [Ventolin Hfa] 1 puff IH PRN PRN 12/07/17 Clindamycin [Cleocin] 400 mg PO QID 12/07/17 Naprosyn 500 mg PO DAILY 12/16/17 Naproxen 375 mg PO TIDPC #20 tablet 12/17/17 predniSONE [predniSONE Tab] 60 mg PO DAILY #9 tab 12/24/17 Amoxicillin/Clavulanate [Augmentin 1 tab PO BID #14 tab 01/09/18 875 MG-125 MG] Clindamycin [Cleocin] 300 mg PO QID #28 cap 01/09/18 - Allergies Allergies/Adverse Reactions: Allergies Allergy/AdvReac Type Severity Reaction Status Date / Time No Known Allergies Allergy Verified 01/09/18 12:48 Review of Systems ROS Statement: Except As Marked, All Systems Reviewed And Found Negative Constitutional: Negative for: Fever, Chills Skin: Positive for: Other (Abscess to right arm) Physical Exam - Reviewed Nursing Documentation Reviewed: Yes Vital Signs Reviewed: Yes - Physical Exam Appears: Positive for: Well, Non-toxic Skin: Positive for: Normal Color. Negative for: Rash Eye Exam: Positive for: Normal appearance Neck: Positive for: Normal, Painless ROM Extremity: Positive for: Normal ROM, Other (3 cm fluctuant abscess noted to the right antecubital fossa with localized erythema, no erythematous streaking) Neurologic/Psych: Positive for: Alert, Oriented. Negative for: Motor/Sensory Deficits - ECG O2 Sat by Pulse Oximetry: 99 (RA) Pulse Ox Interpretation: Normal Medical Decision Making Medical Decision Making: Initial Impression: 53 year old male with abscess to the right antecubital fossa Initial Plan: Incision and drainage procedure - under sterile conditons, abscess to right arm was anesthetized with 10 cc 1% lidocaine without epi, good anesthesia was achieved. Area was cleansed with saline and betadine, a small incision was made over area of fluctuance with 11 blade. Moderate amount of blood and pus was expressed. 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 Wound was packed with 1/2 inch iodoform dressing, sterile gauze wrap applied. Patient tolerated procedure with difficulty. No complications. Patient medicated with IM toradol 30 mg and initial doses of augmentin and clindamycin. Rx given for augmentin and clindamycin. Advised OTC NSAID's for pain and wound check in 2 days. Scribe Attestation: Documented by Kamari Macdonald acting as a scribe for Zulema REID. Provider Scribe Attestation: All medical record entries made by the Scribe were at my direction and personally dictated by me. I have reviewed the chart and agree that the record accurately reflects my personal performance of the history, physical exam, medical decision making, and the department course for this patient. I have also personally directed, reviewed, and agree with the discharge instructions and disposition. Disposition - Clinical Impression Clinical Impression: Abscess, Cellulitis - Patient ED Disposition Is Patient to be Admitted: No Counseled Patient/Family Regarding: Diagnosis, Need For Followup, Rx Given - Disposition Referrals: [facility] [Outside] Disposition: Routine/Home Disposition Time: 13:47 Condition: STABLE Additional Instructions: Keep bandage in place, do not remove packing. Take rx meds as directed. Return in 2 days for wound check and packing removal. Prescriptions: Amoxicillin/Clavulanate [Augmentin 875 MG-125 MG] 1 tab PO BID #14 tab Clindamycin [Cleocin] 300 mg PO QID #28 cap Instructions: Abscess Incision and Drainage, Cellulitis (Skin Infection), Adult (DC) Forms: [employer] (Panamanian)
[2018-01-09] MEDS ORDERED: Iodoform 1/2inx15ft BOT EXT ONE (13:04)
[2018-01-09] MEDS ORDERED: Amoxicillin-Clav 875-125 mg Tab PO STA (13:33)
[2018-01-09 14:41] VITALS: BP 117/65; PULSE 78; TEMP 98
== END 2018-01-09 14:40 | disposition home or self-care (01) ==
LOC: H.ER 12:39
DX: L02.413 Cutaneous abscess of right upper limb (principal); F17.200 Nicotine dependence, unspecified, uncomplicated; F32.9 Major depressive disorder, single episode, unspecified; F41.9 Anxiety disorder, unspecified; J45.909 Unspecified asthma, uncomplicated
CPT/HCPCS: 10060; 96372; 99284; J1885

== ENCOUNTER 2018-01-28 15:21 | Observation (INO) | payer MEDICAID, OTHER ==
[2018-01-28 15:21] VITALS: BMI 21.9
[2018-01-28 16:14] LABS: BASO % 0.3 % (0.0-2.0); EOS # 0.1 K/uL (0.0-0.7); EOS % 1.4 % (0.0-4.0); HEMOGLOBIN 12.1 g/dL (12.0-18.0); LYMPH # 2.2 K/uL (1.0-4.3); LYMPH % 32.4 % (20.0-40.0); MEAN CELL VOLUME 93.5 fl (80.0-94.0); MEAN CORPUSCULAR HEMOGLOBIN 31.4 pg (27.0-31.0); MEAN CORPUSCULAR HGB CONC 33.6 g/dL (33.0-37.0); MEAN PLATELET VOLUME 7.7 fl (7.2-11.7); MONO # 0.4 K/uL (0.0-0.8); MONO % 6.6 % (0.0-10.0); NEUT % 59.3 % (50.0-75.0); NRBC % 0.1 % (0.0-0.0); RBC 3.84 Mil/uL (4.40-5.90); RED CELL DISTRIBUTION WIDTH 14.4 % (11.5-14.5); WHITE BLOOD COUNT 6.8 K/uL (4.8-10.8)
[2018-01-28 16:24] LABS: ALBUMIN 3.7 g/dL (3.5-5.0); ALT/SGPT 148 U/L (21-72); AST/SGOT 39 U/L (17-59); BLOOD UREA NITROGEN 9 mg/dl (9-20); CALCIUM 8.8 mg/dL (8.4-10.2); GFR AFRICAN-AMERICAN > 60; GFR NON-AFRICAN AMERICAN > 60
--- NOTE | 2018-01-28 17:33 | ED PDOC ---
HPI: General Adult Time Seen by Provider: 01/28/18 15:35 Chief Complaint (Nursing): Anxiety Chief Complaint (Provider): anxiety and suicidal thoughts History Per: Patient History/Exam Limitations: no limitations Onset/Duration Of Symptoms: Days Additional Complaint(s): 53 year old male presents to the ED stating he feels anxious and is having suicidal thoughts. He feels as if he wants to jump in front of the train. Patient also reports on January 24 he was evaluated for left-sided chest pain radiating down to his left arm and fever at [facility] ED. He was admitted but signed out against medical advice the next day because he had plans. He states the pain continued and is concerned he may need antibiotics. Denies cough, fever, shortness of breath, weakness, trauma, or hemoptysis. PMD: No Family Provider Past Medical History Reviewed: Historical Data, Nursing Documentation, Vital Signs Vital Signs: Last Vital Signs Temp 98.0 F 01/28/18 21:31 Pulse 58 L 01/28/18 21:31 Resp 16 01/28/18 21:31 BP 113/68 01/28/18 21:31 Pulse Ox 99 01/28/18 21:31 - Medical History PMH: Anxiety, Asthma, Depression, Sexually Transmitted Disease Denies: Diabetes, Hepatitis, HIV, HTN, Chronic Kidney Disease, Seizures - Family History Family History: States: Unknown Family Hx - Immunization History Hx Tetanus Toxoid Vaccination: Yes Hx Influenza Vaccination: No Hx Pneumococcal Vaccination: No - Home Medications Home Medications: Ambulatory Orders Medication Instructions Recorded No Known Home Med 01/24/18 - Allergies Allergies/Adverse Reactions: Allergies Allergy/AdvReac Type Severity Reaction Status Date / Time No Known Allergies Allergy Verified 01/24/18 22:07 Review of Systems ROS Statement: Except As Marked, All Systems Reviewed And Found Negative Constitutional: Negative for: Fever, Other (trauma) Respiratory: Negative for: Cough, Shortness of Breath Psych: Positive for: Anxiety, Suicidal ideation Physical Exam - Reviewed Nursing Documentation Reviewed: Yes Vital Signs Reviewed: Yes - Physical Exam Appears: Positive for: Non-toxic, No Acute Distress Head Exam: Positive for: ATRAUMATIC, NORMAL INSPECTION, NORMOCEPHALIC Skin: Positive for: Normal Color, Warm. Negative for: Rash Eye Exam: Positive for: EOMI, Normal appearance, PERRL ENT: Positive for: Normal ENT Inspection Neck: Positive for: Normal, Painless ROM, Supple. Negative for: Decreased ROM Cardiovascular/Chest: Positive for: Regular Rate, Rhythm. Negative for: Murmur Respiratory: Positive for: Normal Breath Sounds. Negative for: Decreased Breath Sounds, Accessory Muscle Use, Respiratory Distress Gastrointestinal/Abdominal: Positive for: Normal Exam, Bowel Sounds, Soft. Negative for: Tenderness, Guarding, Rebound Back: Positive for: Normal Inspection. Negative for: L CVA Tenderness, R CVA Tenderness Extremity: Positive for: Normal ROM. Negative for: Tenderness, Pedal Edema, Deformity Neurologic/Psych: Positive for: Alert, Oriented (x3). Negative for: Motor/ Sensory Deficits - Laboratory Results Result Diagrams: 01/28/18 15:58 01/28/18 15:58 - ECG O2 Sat by Pulse Oximetry: 97 (RA) Pulse Ox Interpretation: Normal Medical Decision Making Medical Decision Making: Time: 1550 Initial Plan: --EKG --Alcohol Serum --CMP --Drug Screen, Urine --Troponin I --CBC w/ Differential --Chest Portable --Aspirin 324mg PO --Blood Culture --Youth Nutritional Monitor --IV Insertion --1:1 Observation --Urinalysis --Reevaluation Patients previous medical records reviewed and indicate 2 negative sets of Troponin and CTA of chest showed no PE. He was supposed to have an electrocardiogram done to r/o endocarditis. Patient admits to using IV heroin since discharge. Case d/w Dr. Gaxiola who agrees with plan and disposition. Case d/w Dr. Mo and arrangements made for 23 hour observation. Scribe Attestation: Documented by Riccardo Frausto, acting as a scribe for Cristhian Vinson PA-C. Provider Scribe Attestation: All medical record entries made by the Scribe were at my direction and personally dictated by me. I have reviewed the chart and agree that the record accurately reflects my personal performance of the history, physical exam, medical decision making, and the department course for this patient. I have also personally directed, reviewed, and agree with the discharge instructions and disposition. Disposition - Clinical Impression Clinical Impression: Chest pain, Anxiety - Patient ED Disposition Is Patient to be Admitted: Yes - Disposition Disposition Time: 16:00 Condition: IMPROVED
--- NOTE | 2018-01-28 18:37 | RAD ---
HISTORY: chest pain COMPARISON: 10/13/2017. FINDINGS: LUNGS: The lungs are well inflated and clear. PLEURA: No significant pleural effusion identified, no pneumothorax apparent. CARDIOVASCULAR: Normal. OSSEOUS STRUCTURES: No significant abnormalities. VISUALIZED UPPER ABDOMEN: Normal. OTHER FINDINGS: None. IMPRESSION: No active pulmonary disease.
[2018-01-28 22:16] LABS: URINE BACTERIA RARE (<OCC); URINE BILIRUBIN NEGATIVE (NEGATIVE); URINE BLOOD NEGATIVE (NEGATIVE); URINE CLARITY SLIGHTY-CLOUDY (Clear); URINE COLOR AMBER (YELLOW); URINE GLUCOSE (UA) NEG (Normal); URINE LEUKOCYTE ESTERASE NEG Leu/uL (Negative); URINE PROTEIN 30 mg/dL (NEGATIVE)
[2018-01-28 22:29] LABS: BARBITURATES, UR NEGATIVE (NEGATIVE); BENZODIAZEPINES, UR NEGATIVE (NEGATIVE); OPIATES, UR POSITIVE (NEGATIVE); PHENCYCLIDINE, UR NEGATIVE (NEGATIVE)
[2018-01-29 07:59] LABS: HEMOGLOBIN 12.2 g/dL (12.0-18.0); MEAN CELL VOLUME 94.2 fl (80.0-94.0); MEAN CORPUSCULAR HEMOGLOBIN 31.2 pg (27.0-31.0); MEAN CORPUSCULAR HGB CONC 33.1 g/dL (33.0-37.0); RBC 3.92 Mil/uL (4.40-5.90); WHITE BLOOD COUNT 5.5 K/uL (4.8-10.8)
[2018-01-29 09:26] LABS: ALB/GLOB RATIO 0.9 (1.0-2.1); ALBUMIN 3.4 g/dL (3.5-5.0); ALT/SGPT 127 U/L (21-72); AST/SGOT 41 U/L (17-59); BLOOD UREA NITROGEN 13 mg/dl (9-20); CALCIUM 8.9 mg/dL (8.4-10.2); GFR AFRICAN-AMERICAN > 60; GFR NON-AFRICAN AMERICAN > 60; HDL CHOLESTEROL 32 MG/DL (30-70)
--- NOTE | 2018-01-29 09:35 | CARD ---
APPROVED REPORT EKG Measurement Heart [id number] [id number] <Conclusion> Normal sinus rhythm Normal ECG
[2018-01-29 09:38] LABS: LDL CHOLESTEROL 69 mg/dL (0-129)
--- NOTE | 2018-01-29 09:43 | CARD ---
APPROVED REPORT EKG Measurement Heart [id number] ND 130P70 [id number] <Conclusion> Sinus bradycardia Voltage criteria for left ventricular hypertrophy Abnormal ECG
--- NOTE | 2018-01-29 09:57 | CP.PCM.PCO ---
Assessment/Plan - Assessment and Plan (Free Text) Assessment: Patient seen this morning. Agitated, upset wants to sign out ama. Denies chest pain, shortness of breath. Dr Catalan evaluated patient, patient has no more suidical thoughts, patient has the capacity to make decisions. Refusing to stay for further cardiac workup. Pt signed out ama, dr byrnes and dr laurent aware.
--- NOTE | 2018-01-29 10:18 | CP.PCM.CON ---
History of Present Illness - History of Present Illness History of Present Illness: consult requested as pt is irritable and requesting to leave the hospital against medical advise pt is 53 year old male with previous psychiatric diagnosis of opiate dependence continuos presents to the ED stating he feels anxious and is having suicidal thoughts. Patient also reports on January 24 he was evaluated for left-sided chest pain radiating down to his left arm and fever at [facility] ED. He was admitted but signed out against medical advice the next day because he had plans. On evaluation, pt reported he continues to use heroin , guarded about the amount and route, stated he has no current active suicidal thoughts or plans, denied any symptoms of depression , reported that the statement he made in the er was out of despair due to his current financial problems pt is awake and alert , oriented x3, requesting to be discharged as he needs to go for a job discussed with patient risks and benefits of continuing with treatment pt was able to verbalize the risks knowing that this means interruption of his medical care, also understands that with continuous use of opiates there is a risk of overdose. pt continues to decline receiving medical or psychiatric treatment and requesting to be discharged against medical advise Past Patient History - Infectious Disease Hx of Infectious Diseases: None - Past Medical History & Family History Past Medical History?: Yes - Past Social History Smoking Status: Current Some Days Smoker - CARDIAC Hx Cardiac Disorders: Yes Hx Hypertension: No - PULMONARY Hx Respiratory Disorders: Yes Hx Asthma: Yes - NEUROLOGICAL Hx Neurological Disorder: No Hx Seizures: No - HEENT Hx HEENT Problems: No - RENAL Hx Chronic Kidney Disease: No - ENDOCRINE/METABOLIC Hx Endocrine Disorders: No - HEMATOLOGICAL/ONCOLOGICAL Hx Blood Disorders: No Hx Human Immunodeficiency Virus (HIV): No - INTEGUMENTARY Hx Dermatological Problems: Yes Hx Cellulitis: Yes - MUSCULOSKELETAL/RHEUMATOLOGICAL Hx Musculoskeletal Disorders: No Hx Falls: No - GASTROINTESTINAL Hx Gastrointestinal Disorders: No - GENITOURINARY/GYNECOLOGICAL Hx Genitourinary Disorders: Yes Hx Sexually Transmitted Disorders: Yes - PSYCHIATRIC Hx Psychophysiologic Disorder: Yes Hx Anxiety: Yes Hx Depression: Yes Hx Substance Use: Yes (heroine) - SURGICAL HISTORY Hx Surgeries: Yes Other/Comment: R arm cyst removal - ANESTHESIA Hx Anesthesia: Yes Hx Anesthesia Reactions: No Hx Malignant Hyperthermia: No Meds Allergies/Adverse Reactions: Allergies Allergy/AdvReac Type Severity Reaction Status Date / Time No Known Allergies Allergy Verified 01/24/18 22:07 - Medications Medications: Current Medications Lorazepam (Ativan) 1 mg PO Q4 PRN PRN Reason: Withdrawal Last Admin: 01/29/18 09:06 Dose: 1 mg Physical Exam - Psychiatric Exam Additional comments: pt seen in bed, anxious mood and affect, good eye contact, speech normal, thought form coherent and goal directed, denied any current suicidal or homicidal ideation, denied perceptual disturbances, non elicited alert awake oriented x3, poor insight and judgment Results - Vital Signs Recent Vital Signs: Last Vital Signs Temp 97.5 F L 01/29/18 09:00 Pulse 53 L 01/29/18 09:00 Resp 16 01/29/18 09:00 BP 126/72 01/29/18 09:00 Pulse Ox 99 01/29/18 09:00 - Labs Result Diagrams: 01/29/18 07:54 01/29/18 07:54 Labs: Laboratory Results - last 24 hr 01/28/18 01/28/18 01/28/18 15:58 15:58 22:00 WBC 6.8 RBC 3.84 L Hgb 12.1 Hct 35.9 MCV 93.5 MCH 31.4 H MCHC 33.6 RDW 14.4 Plt Count 204 MPV 7.7 Neut % (Auto) 59.3 Lymph % (Auto) 32.4 [place] % (Auto) 6.6 Eos % (Auto) 1.4 Baso % (Auto) 0.3 Neut # (Auto) 4.0 Lymph # (Auto) 2.2 [place] # (Auto) 0.4 Eos # (Auto) 0.1 Baso # (Auto) 0.0 ESR Sodium 142 Potassium 3.6 Chloride 106 Carbon Dioxide 26 Anion Gap 14 BUN 9 Creatinine 0.6 L Est GFR ( Amer) > 60 Est GFR (Non-Af Amer) > 60 Random Glucose 105 Calcium 8.8 Total Bilirubin 0.4 AST 39 ALT 148 H D Alkaline Phosphatase 91 Troponin I < 0.0120 Total Protein 7.4 Albumin 3.7 Globulin 3.8 Albumin/Globulin Ratio 1.0 Triglycerides Cholesterol LDL Cholesterol Direct HDL Cholesterol TSH 3rd Generation Urine Color Urine Clarity Urine pH Ur Specific [place] Urine Protein Urine Glucose (UA) Urine Ketones Urine Blood Urine Nitrate Urine Bilirubin Urine Urobilinogen Ur Leukocyte Esterase Urine RBC (Auto) Urine Microscopic WBC Urine Bacteria Urine Opiates Screen Positive H Urine Methadone Screen Negative Ur Barbiturates Screen Negative Ur Phencyclidine Scrn Negative Ur Amphetamines Screen Negative U Benzodiazepines Scrn Negative U Oth Cocaine Metabols Negative U Cannabinoids Screen Positive H Alcohol, Quantitative < 10 01/28/18 01/29/18 01/29/18 22:00 07:54 07:54 WBC 5.5 RBC 3.92 L Hgb 12.2 Hct 37.0 MCV 94.2 H MCH 31.2 H MCHC 33.1 RDW 15.0 H Plt Count 193 MPV Neut % (Auto) Lymph % (Auto) [place] % (Auto) Eos % (Auto) Baso % (Auto) Neut # (Auto) Lymph # (Auto) [place] # (Auto) Eos # (Auto) Baso # (Auto) ESR 16 Sodium Potassium Chloride Carbon Dioxide Anion Gap BUN Creatinine Est GFR ( Amer) Est GFR (Non-Af Amer) Random Glucose Calcium Total Bilirubin AST ALT Alkaline Phosphatase Troponin I < 0.0120 Total Protein Albumin Globulin Albumin/Globulin Ratio Triglycerides Cholesterol LDL Cholesterol Direct HDL Cholesterol TSH 3rd Generation Urine Color Eri Urine Clarity Slighty-cloudy Urine pH 6.0 Ur Specific [place] 1.028 Urine Protein 30 Urine Glucose (UA) Neg Urine Ketones Trace Urine Blood Negative Urine Nitrate Negative Urine Bilirubin Negative Urine Urobilinogen 2.0 Ur Leukocyte Esterase Neg Urine RBC (Auto) 3 Urine Microscopic WBC 1 Urine Bacteria Rare Urine Opiates Screen Urine Methadone Screen Ur Barbiturates Screen Ur Phencyclidine Scrn Ur Amphetamines Screen U Benzodiazepines Scrn U Oth Cocaine Metabols U Cannabinoids Screen Alcohol, Quantitative 01/29/18 07:54 WBC RBC Hgb Hct MCV MCH MCHC RDW Plt Count MPV Neut % (Auto) Lymph % (Auto) [place] % (Auto) Eos % (Auto) Baso % (Auto) Neut # (Auto) Lymph # (Auto) [place] # (Auto) Eos # (Auto) Baso # (Auto) ESR Sodium 140 Potassium 4.3 Chloride 104 Carbon Dioxide 27 Anion Gap 13 BUN 13 Creatinine 0.7 L Est GFR ( Amer) > 60 Est GFR (Non-Af Amer) > 60 Random Glucose 90 Calcium 8.9 Total Bilirubin 0.5 AST 41 ALT 127 H Alkaline Phosphatase 76 Troponin I Total Protein 7.2 Albumin 3.4 L Globulin 3.8 Albumin/Globulin Ratio 0.9 L Triglycerides 136 D Cholesterol 139 LDL Cholesterol Direct 69 HDL Cholesterol 32 TSH 3rd Generation 0.46 Urine Color Urine Clarity Urine pH Ur Specific [place] Urine Protein Urine Glucose (UA) Urine Ketones Urine Blood Urine Nitrate Urine Bilirubin Urine Urobilinogen Ur Leukocyte Esterase Urine RBC (Auto) Urine Microscopic WBC Urine Bacteria Urine Opiates Screen Urine Methadone Screen Ur Barbiturates Screen Ur Phencyclidine Scrn Ur Amphetamines Screen U Benzodiazepines Scrn U Oth Cocaine Metabols U Cannabinoids Screen Alcohol, Quantitative Assessment & Plan - Assessment and Plan (Free Text) Assessment: substance induced mood disorder opiate use disorder continuous Plan: patient requesting to be discharged against medical advise pt at current mental status awake alert oriented x3, able to verbalize the risks versus benefits of being discharged pt at current mental status has the capacity to make decision in reference to his medical care pt at [facility] mental status denied any current suicidal or homicidal ideations, denied perceptual disturbances, non elicited pt is psychiatricaly cleared to be discharged against medical advise
[2018-01-29 13:53] VITALS: BP 99/54; PULSE 81; RESP 20; TEMP 97.4; O2SAT 94
== END 2018-01-29 10:15 | disposition left against medical advice (07) ==
LOC: H.ER 15:21 → H.ERHOLD 18:01 → H.TEL 22:36
PROVIDERS: ADMIT Internal Medicine Pulmonary Disease; ATTEND Internal Medicine Pulmonary Disease
DX: F11.94 Opioid use, unspecified with opioid-induced mood disorder (principal); R45.851 Suicidal ideations; J45.909 Unspecified asthma, uncomplicated; F17.200 Nicotine dependence, unspecified, uncomplicated; F41.9 Anxiety disorder, unspecified; F32.9 Major depressive disorder, single episode, unspecified; Z59.9 Problem related to housing and economic circumstances, unspecified
CPT/HCPCS: 36415; 71045; 80053; 80061; 80320; 80324; 80345; 80346; 80349; 80353; 80358; 80361; 81003; 82607; 83992; 84443; 84484; 85025; 85027; 85651; 87040; 93005; 99283; G0378

== ENCOUNTER 2018-01-29 14:39 | Observation (INO) | payer OTHER ==
[2018-01-29 14:41] VITALS: BMI 21.9
[2018-01-29 15:41] LABS: BASO # 0.1 K/uL (0.0-0.2); BASO % 0.8 % (0.0-2.0); EOS # 0.1 K/uL (0.0-0.7); EOS % 0.9 % (0.0-4.0); HEMOGLOBIN 12.7 g/dL (12.0-18.0); LYMPH # 2.1 K/uL (1.0-4.3); LYMPH % 28.9 % (20.0-40.0); MEAN CORPUSCULAR HEMOGLOBIN 31.3 pg (27.0-31.0); MEAN CORPUSCULAR HGB CONC 33.3 g/dL (33.0-37.0); MEAN PLATELET VOLUME 8.1 fl (7.2-11.7); MONO # 0.4 K/uL (0.0-0.8); MONO % 5.1 % (0.0-10.0); NEUT # 4.6 K/uL (1.8-7.0); NEUT % 64.3 % (50.0-75.0); RBC 4.05 Mil/uL (4.40-5.90); RED CELL DISTRIBUTION WIDTH 14.7 % (11.5-14.5); WHITE BLOOD COUNT 7.1 K/uL (4.8-10.8)
[2018-01-29 15:48] LABS: ALBUMIN 4.1 g/dL (3.5-5.0); ALT/SGPT 105 U/L (21-72); AST/SGOT 40 U/L (17-59); BLOOD UREA NITROGEN 14 mg/dl (9-20); CALCIUM 8.8 mg/dL (8.4-10.2); GFR AFRICAN-AMERICAN > 60; GFR NON-AFRICAN AMERICAN > 60
[2018-01-29 16:08] LABS: BENZODIAZEPINES, UR NEGATIVE (NEGATIVE)
[2018-01-29 16:15] LABS: BARBITURATES, UR NEGATIVE (NEGATIVE); OPIATES, UR POSITIVE (NEGATIVE); PHENCYCLIDINE, UR NEGATIVE (NEGATIVE)
--- NOTE | 2018-01-29 18:49 | ED PDOC ---
HPI: General Adult Time Seen by Provider: 01/29/18 15:10 Chief Complaint (Nursing): Upper Extremity Problem/Injury Chief Complaint (Provider): chest pain, shoulder pain, fever, IVDU History Per: Patient History/Exam Limitations: no limitations Current Symptoms Are (Timing): Still Present Severity: Moderate Additional Complaint(s): 53yo male hx active IVDU, hepatitis, now c/o ongoing chest pain, dizziness and anxiety. Was admitted [facility] early this morning left AMA. Per prior reports +SIRS / fever at [facility] due to get an echocardiogram and left prior. Blood cultures x2 negative. Patient states fever persisted until friday. Admits leaving this morning due to opiate withdrawal. Past Medical History Reviewed: Historical Data, Nursing Documentation, Vital Signs Vital Signs: Last Vital Signs Temp 98.4 F 01/29/18 15:50 Pulse 66 01/29/18 17:21 Resp 17 01/29/18 17:21 BP 116/68 01/29/18 17:21 Pulse Ox 100 01/29/18 17:21 - Medical History PMH: Anxiety, Asthma, Depression, Sexually Transmitted Disease Denies: Diabetes, Hepatitis, HIV, HTN, Chronic Kidney Disease, Seizures - Family History Family History: States: Unknown Family Hx - Immunization History Hx Tetanus Toxoid Vaccination: Yes Hx Influenza Vaccination: No Hx Pneumococcal Vaccination: No - Allergies Allergies/Adverse Reactions: Allergies Allergy/AdvReac Type Severity Reaction Status Date / Time No Known Allergies Allergy Verified 01/29/18 14:51 Review of Systems Constitutional: Negative for: Fever ENT: Negative for: Ear Pain, Throat Pain Cardiovascular: Positive for: Chest Pain, Palpitations, Light Headedness Respiratory: Negative for: Cough Gastrointestinal: Negative for: Nausea, Abdominal Pain Genitourinary Male: Negative for: Dysuria Musculoskeletal: Positive for: Shoulder Pain, Back Pain Skin: Positive for: Lesions. Negative for: Rash Neurological: Negative for: Weakness Physical Exam - Reviewed Nursing Documentation Reviewed: Yes Vital Signs Reviewed: Yes - Physical Exam Appears: Positive for: Well, Non-toxic, No Acute Distress Head Exam: Positive for: ATRAUMATIC, NORMAL INSPECTION, NORMOCEPHALIC Skin: Positive for: Normal Color, Warm, DRY Eye Exam: Positive for: EOMI, Normal appearance, PERRL ENT: Positive for: Normal ENT Inspection Neck: Positive for: Normal, Painless ROM Cardiovascular/Chest: Positive for: Regular Rate, Rhythm Respiratory: Positive for: CNT, Normal Breath Sounds Gastrointestinal/Abdominal: Positive for: Normal Exam, Soft. Negative for: Tenderness, Guarding Back: Positive for: Normal Inspection Extremity: Positive for: Normal ROM, Swelling (track meyer mild induration R antecub). Negative for: Deformity Neurologic/Psych: Positive for: Alert, Oriented - Laboratory Results Result Diagrams: 01/29/18 15:20 01/29/18 15:20 - ECG O2 Sat by Pulse Oximetry: 100 Medical Decision Making Medical Decision Making: prior records reviewed afebrile rectally today no evidence septic emboli on clinical exam labs reviewed WBC normal +opiate and THC in urine Pt requires echo r/o endocarditis given fever earlier this week, no other obvious source infection and hx IVDU. D/w Dr Obrien for obs for echo in am. Hold Abx for now given afebrile and negative cultures x2 Disposition - Clinical Impression Clinical Impression: Chest pain, Drug abuse - Patient ED Disposition Is Patient to be Admitted: Yes - Disposition Disposition Time: 16:45 Condition: FAIR - Pt Status Changed To: Hospital Disposition Of: Observation - POA Present On Arrival: None
[2018-01-29] MEDS ORDERED: Oxycodone/Acetaminophen 5/325 mg Tab PO STA (21:43)
[2018-01-29] MEDS ORDERED: Oxycodone/Acetaminophen 5/325 mg Tab ONE (21:52)
[2018-01-30] MEDS ORDERED: cefTRIAXone (Rocephin) 1 gm Inj ONE (01:36)
[2018-01-30 07:35] VITALS: PULSE 78; RESP 20; O2SAT 98
[2018-01-30] MEDS: Enoxaparin 40 mg Syringe SC SCH ×2 (09:47→09:51)
--- NOTE | 2018-01-30 10:24 | CARD ---
APPROVED REPORT EKG Measurement Heart [id number] 128P58 [id number] <Conclusion> Normal sinus rhythm Possible Left atrial enlargement Borderline ECG
--- NOTE | 2018-01-30 10:30 | CARD ---
APPROVED REPORT EXAM: Two-dimensional and M-mode echocardiogram with Doppler and color Doppler. Other Information Quality : GoodRhythm : INDICATION FEVER R/O ENDOCARDITIS 2D DIMENSIONS IVSd1.03 (0.7-1.1cm)LVDd4.75 (3.9-5.9cm) LVOT Diameter1.63 (1.8-2.4cm)PWd0.92 (0.7-1.1cm) IVSs1.84 (0.8-1.2cm)LVDs2.97 (2.5-4.0cm) FS (%) 37.4 %PWs1.47 (0.8-1.2cm) M-Mode DIMENSIONS Left Atrium (MM)3.06 (2.5-4.0cm)IVSd1.21 (0.7-1.1cm) Aortic Root3.42 (2.2-3.7cm)LVDd4.79 (4.0-5.6cm) Aortic Cusp Exc.2.01 (1.5-2.0cm)PWd1.15 (0.7-1.1cm) IVSs1.21 cmFS (%) 34 % LVDs3.14 (2.0-3.8cm)PWs1.12 cm Mitral Valve MV E Dkutrtpj50.0cm/sMV DECEL [id number] A Ujxnqcxj87.5cm/s MV NPS10jiB/A ratio1.6MVA (PHT)3.05cm2 TDI Lateral E' Peak V15.73cm/sMedial E' Peak V9.21cm/sE/Lateral E'4.3 E/Medial E'7.3 Pulmonary Valve PV Peak Qzlutgyz21.7cm/s Tricuspid Valve TR Peak Pgqzyzdj816qp/sRAP ACHHTGGF58sbKwET Peak Gr.22mmHg RXPZ10ymNh LEFT VENTRICLE The left ventricle is normal size. The left ventricular function is normal. The left ventricular ejection fraction is within the normal range. The Ejection Fraction is 65-70%. There is normal LV segmental wall motion. The left ventricular diastolic function is normal. RIGHT VENTRICLE The right ventricle is normal size. The right ventricular systolic function is normal. ATRIA The left atrium size is normal. The right atrium size is normal. AORTIC VALVE The aortic valve is normal in structure. No aortic regurgitation is present. There is no aortic valvular stenosis. There is no aortic valvular vegetation. MITRAL VALVE The mitral valve is normal in structure. There is no mitral valve stenosis. There is no mitral valve regurgitation noted. TRICUSPID VALVE The tricuspid valve is normal in structure. There is no tricuspid valve regurgitation noted. There is no tricuspid valve prolapse or vegetation. PULMONIC VALVE The pulmonary valve is normal in structure. There is no pulmonic valvular regurgitation. GREAT VESSELS The aortic root is normal in size. The IVC is normal in size and collapses >50% with inspiration. PERICARDIAL EFFUSION The pericardium appears normal. <Conclusion> The left ventricle is normal size. The left ventricular function is normal. The left ventricular ejection fraction is within the normal range. The Ejection Fraction is 65-70%.
[2018-01-30 11:02] VITALS: BP 114/78; TEMP 98.5
== END 2018-01-30 10:00 | disposition left against medical advice (07) ==
LOC: H.ER 14:39 → H.ERHOLD 18:29
PROVIDERS: ADMIT Internal Medicine Pulmonary Disease; ATTEND Internal Medicine Pulmonary Disease
DX: F11.23 Opioid dependence with withdrawal (principal); R07.9 Chest pain, unspecified; F41.9 Anxiety disorder, unspecified; J45.909 Unspecified asthma, uncomplicated
CPT/HCPCS: 80053; 80320; 80324; 80345; 80346; 80349; 80353; 80358; 80361; 83992; 84484; 85025; 87040; 93005; 93306; 96365; 96375; 96376; 99285; G0378; J0696; J3370

== ENCOUNTER 2018-05-10 23:15 | Emergency (ER) | payer OTHER ==
[2018-05-10 23:15] VITALS: BMI 24.7
[2018-05-11] MEDS ORDERED: Albuterol-Ipratrop 3 mg / 0.5 (3 ml) UD INH STA (00:13)
[2018-05-11] MEDS ORDERED: Albuterol-Ipratrop 3 mg / 0.5 (3 ml) UD ONE ×2 (00:37→00:58)
[2018-05-11 01:04] VITALS: O2SAT 95
[2018-05-11 02:05] LABS: BASO % 0.4 % (0.0-2.0); EOS % 0.1 % (0.0-4.0); HEMOGLOBIN 11.8 g/dL (12.0-18.0); LYMPH # 1.5 K/uL (1.0-4.3); LYMPH % 12.6 % (20.0-40.0); MEAN CELL VOLUME 92.8 fl (80.0-94.0); MEAN CORPUSCULAR HEMOGLOBIN 30.7 pg (27.0-31.0); MEAN CORPUSCULAR HGB CONC 33.1 g/dL (33.0-37.0); MEAN PLATELET VOLUME 8.8 fl (7.2-11.7); MONO # 0.9 K/uL (0.0-0.8); MONO % 8.2 % (0.0-10.0); NEUT # 9.1 K/uL (1.8-7.0); NEUT % 78.7 % (50.0-75.0); RBC 3.86 Mil/uL (4.40-5.90); RED CELL DISTRIBUTION WIDTH 15.2 % (11.5-14.5); WHITE BLOOD COUNT 11.6 K/uL (4.8-10.8)
[2018-05-11 02:09] LABS: BLOOD UREA NITROGEN 17 mg/dl (9-20); CALCIUM 8.7 mg/dL (8.4-10.2); GFR NON-AFRICAN AMERICAN > 60
[2018-05-11 02:14] LABS: ALB/GLOB RATIO 0.9 (1.0-2.1); ALBUMIN 3.7 g/dL (3.5-5.0); ALT/SGPT 109 U/L (21-72); AST/SGOT 85 U/L (17-59)
--- NOTE | 2018-05-11 04:16 | ED PDOC ---
HPI: SOB/CHF/COPD Time Seen by Provider: 05/10/18 23:59 Chief Complaint (Nursing): Shortness Of Breath Chief Complaint (Provider): SOB, cough History Per: Patient History/Exam Limitations: no limitations Onset/Duration Of Symptoms: Days Current Symptoms Are (Timing): Still Present Additional Complaint(s): 53 yo male with opiate abuse, hepatitis C and asthma presents for evaluation of cough and SOB. Pt was admitted to [facility] Pt states he was feeling better at that time. Pt has been using only inhaler at home. No fever/chills. Past Medical History Reviewed: Historical Data, Nursing Documentation, Vital Signs Vital Signs: Last Vital Signs Temp 99.1 F 05/10/18 23:28 Pulse 90 05/10/18 23:28 Resp 17 05/11/18 01:02 BP 111/67 05/10/18 23:28 Pulse Ox 95 05/11/18 01:02 - Medical History PMH: Anxiety, Asthma, Depression, Hepatitis (Hep C), Sexually Transmitted Disease Denies: Diabetes, HIV, HTN, Chronic Kidney Disease, Seizures - Surgical History Surgical History: No Surg Hx - Family History Family History: States: Unknown Family Hx - Living Arrangements Living Arrangements: With Family - Social History Current smoker - smoking cessation education provided: Yes Alcohol: None Drugs: Opiates - Immunization History Hx Tetanus Toxoid Vaccination: Yes Hx Influenza Vaccination: No Hx Pneumococcal Vaccination: No - Home Medications Home Medications: Ambulatory Orders Medication Instructions Recorded Albuterol/Ipratropium [Duoneb 3 3 ml IH Q4H #20 neb 05/11/18 MG/3 Ml-0.5 MG/3 Ml 3 Ml] predniSONE [predniSONE Tab] 20 mg PO DAILY #12 tab 05/11/18 - Allergies Allergies/Adverse Reactions: Allergies Allergy/AdvReac Type Severity Reaction Status Date / Time No Known Allergies Allergy Verified 05/10/18 23:25 Review of Systems ROS Statement: Except As Marked, All Systems Reviewed And Found Negative Constitutional: Negative for: Fever, Chills ENT: Negative for: Ear Pain, Ear Discharge Cardiovascular: Negative for: Chest Pain, Palpitations Respiratory: Positive for: Cough, Shortness of Breath Gastrointestinal: Negative for: Nausea, Vomiting, Abdominal Pain Physical Exam - Reviewed Nursing Documentation Reviewed: Yes Vital Signs Reviewed: Yes - Physical Exam Appears: Positive for: Well, Non-toxic, No Acute Distress Head Exam: Positive for: ATRAUMATIC, NORMAL INSPECTION, NORMOCEPHALIC Skin: Positive for: Normal Color, Warm, DRY Eye Exam: Positive for: Normal appearance ENT: Positive for: Normal ENT Inspection Neck: Positive for: Normal, Painless ROM Cardiovascular/Chest: Positive for: Regular Rate, Rhythm Respiratory: Positive for: Rhonchi, Wheezing. Negative for: Accessory Muscle Use, Respiratory Distress Back: Positive for: Normal Inspection Extremity: Positive for: Normal ROM Neurologic/Psych: Positive for: Alert, Oriented - Laboratory Results Result Diagrams: 05/11/18 00:47 05/11/18 00:47 - ECG O2 Sat by Pulse Oximetry: 95 Medical Decision Making Medical Decision Making: Slight elevation of WBC since yesterday, most likey do to steroids. CXR without acute findings. Pt with diffuse rhonchi on exam, improvement in wheezing. Vitals WNL. Discussed with Dr. Prince. Disposition - Clinical Impression Clinical Impression: Asthma, Bronchitis - Patient ED Disposition Is Patient to be Admitted: No Counseled Patient/Family Regarding: Diagnosis, Need For Followup, Rx Given - Disposition Referrals: [facility] [Outside] Disposition: Routine/Home Disposition Time: 04:15 Condition: GOOD Prescriptions: Albuterol/Ipratropium [Duoneb 3 MG/3 Ml-0.5 MG/3 Ml 3 Ml] 3 ml IH Q4H #20 neb predniSONE [predniSONE Tab] 20 mg PO DAILY #12 tab Instructions: Acute Bronchitis, Adult (DC)
[2018-05-11 04:54] VITALS: BP 116/75; PULSE 61; RESP 15; TEMP 98.4
--- NOTE | 2018-05-11 08:19 | RAD ---
Date of service: 05/11/2018 HISTORY: Chest pressure COMPARISON: Frontal chest radiograph 01/28/2018. FINDINGS: LUNGS: There are reticular changes questioned at the right greater than left lung bases, possibly at the posterior costophrenic sulci. Remaining lung zayas are otherwise clear bilaterally. PLEURA: No significant pleural effusion identified, no pneumothorax apparent. CARDIOVASCULAR: Normal. OSSEOUS STRUCTURES: No significant abnormalities. VISUALIZED UPPER ABDOMEN: Normal. OTHER FINDINGS: None. IMPRESSION: Questionable reticular changes bilateral bases. Follow-up chest CT may be useful for further characterization. Remaining lung zayas are clear and the cardiac silhouette and hilar vascular markings appear normal.
--- NOTE | 2018-05-11 13:06 | CARD ---
APPROVED REPORT Date of service: 05/10/2018 EKG Measurement Heart [id number] 128P64 [id number] <Conclusion> Normal sinus rhythm Possible Left atrial enlargement Left ventricular hypertrophy Abnormal ECG
== END 2018-05-11 04:54 | disposition home or self-care (01) ==
LOC: H.ER 23:15
DX: J40 Bronchitis, not specified as acute or chronic (principal); J45.909 Unspecified asthma, uncomplicated; F17.200 Nicotine dependence, unspecified, uncomplicated; J44.9 Chronic obstructive pulmonary disease, unspecified; R07.89 Other chest pain; Z79.899 Other long term (current) drug therapy; Z86.59 Personal history of other mental and behavioral disorders
CPT/HCPCS: 71045; 80053; 85025; 93005; 99283; J2930

== ENCOUNTER 2018-06-05 13:53 | Inpatient (IN) | payer OTHER ==
[2018-06-05 13:54] VITALS: BMI 24.7
[2018-06-05] MEDS ORDERED: Naloxone 0.4 mg/ml Inj (Adult) IVP STA (15:00)
[2018-06-05] MEDS ORDERED: Sodium Chloride 0.9% 1,000 ML IV STA (15:00)
[2018-06-05] MEDS ORDERED: Albuterol-Ipratrop 3 mg / 0.5 (3 ml) UD IH STA (15:00)
--- NOTE | 2018-06-05 15:01 | ED PDOC ---
HPI: Chest Pain Time Seen by Provider: 06/05/18 14:26 Chief Complaint (Nursing): Abdominal Pain Chief Complaint (Provider): chest pain History Per: Patient History/Exam Limitations: no limitations Onset/Duration Of Symptoms: Days (today) Additional Complaint(s): Pt. with chest pain left side. No dyspnea. No weakness. Pt. took heroine yesterday. No numbness, tingles. Denies etoh. No abd pain, nausea, vomit, diarrhea. No leg pain. Past Medical History Reviewed: Nursing Documentation, Vital Signs Vital Signs: Last Vital Signs Temp 98.7 F 06/05/18 14:12 Pulse 120 H 06/05/18 14:29 Resp 19 06/05/18 14:29 BP 106/50 L 06/05/18 14:29 Pulse Ox 98 06/05/18 14:29 - Medical History PMH: Anxiety, Asthma, Depression, Hepatitis (Hep C), Sexually Transmitted Disease Denies: Diabetes, HIV, HTN, Chronic Kidney Disease, Seizures - Surgical History Surgical History: No Surg Hx - Family History Family History: States: Unknown Family Hx - Social History Alcohol: None Drugs: Denies - Immunization History Hx Tetanus Toxoid Vaccination: Yes Hx Influenza Vaccination: No Hx Pneumococcal Vaccination: No - Home Medications Home Medications: Ambulatory Orders Medication Instructions Recorded Albuterol/Ipratropium [Duoneb 3 3 ml IH Q4H #20 neb 05/11/18 MG/3 Ml-0.5 MG/3 Ml 3 Ml] predniSONE [predniSONE Tab] 20 mg PO DAILY #12 tab 05/11/18 - Allergies Allergies/Adverse Reactions: Allergies Allergy/AdvReac Type Severity Reaction Status Date / Time No Known Allergies Allergy Verified 05/10/18 23:25 Review of Systems ROS Statement: Except As Marked, All Systems Reviewed And Found Negative Cardiovascular: Positive for: Chest Pain Physical Exam - Reviewed Nursing Documentation Reviewed: Yes Vital Signs Reviewed: Yes - Physical Exam Appears: Positive for: Non-toxic, No Acute Distress Head Exam: Positive for: ATRAUMATIC, NORMAL INSPECTION, NORMOCEPHALIC Skin: Positive for: Normal Color, Warm, DRY Eye Exam: Positive for: EOMI, Normal appearance, PERRL ENT: Positive for: Normal ENT Inspection Neck: Positive for: Normal, Painless ROM Cardiovascular/Chest: Positive for: Regular Rate, Rhythm Respiratory: Positive for: Decreased Breath Sounds. Negative for: Accessory Muscle Use, Wheezing Gastrointestinal/Abdominal: Positive for: Normal Exam, Soft. Negative for: Tenderness Back: Positive for: Normal Inspection. Negative for: L CVA Tenderness, R CVA Tenderness Extremity: Positive for: Normal ROM. 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 Negative for: Motor/Sensory Deficits - Laboratory Results Result Diagrams: 06/05/18 15:16 06/05/18 15:16 Interpretation Of Abn Labs: 0.191 trop, amphetamine and opiates - ECG ECG: Positive for: Interpreted By Me, Viewed By Me ECG Rhythm: Positive for: Sinus Tachycardia O2 Sat by Pulse Oximetry: 98 Pulse Ox Interpretation: Normal - CT Scan/US ct Other Rad Studies (CT/US): Read By Radiologist Other Rad Interpretation: pe - Progress ED Course And Treament: 1630: Will need ct chest to eval for pe. Trop borderline elevated. 1719: Stable. Will need admit. Pain free. 1726: Pt. stable. Pain free. Spoke with Dr. Mo who will admit. Dr. Kirsty lorenz. Will heparinize. No recent injury, bleeding. 1735: Spoke with Dr. oLfton. Made aware of all findings. Wants pt. to get lovenox instead of heparin. Continue other care. - Critical Care Total Time (In Min): 60 Documented Critical Care: Time excludes all time spent performint seperately billable procedures Disposition - Clinical Impression Clinical Impression: Pulmonary emboli, Hypokalemia, Elevated troponin - Patient ED Disposition Is Patient to be Admitted: Yes Counseled Patient/Family Regarding: Studies Performed, Diagnosis - Disposition Disposition Time: 17:37 Condition: FAIR Forms: [email or web address] (British) - Pt Status Changed To: Hospital Disposition Of: Inpatient - Admit Certification Admit to Inpatient:: After my assessment, the patient will require hospitalization for at least two midnights. This is because of the severity of symptoms shown, intensity of services needed, and/or the medical risk in this patient being treated as an outpatient. - POA Present On Arrival: Deep Vein Thrombosis / PE
[2018-06-05] MEDS ORDERED: Albuterol-Ipratrop 3 mg / 0.5 (3 ml) UD ONE (15:20)
[2018-06-05 15:21] LABS: BASO % 0.1 % (0.0-2.0); EOS % 0.2 % (0.0-4.0); HEMOGLOBIN 12.7 g/dL (12.0-18.0); LYMPH # 0.9 K/uL (1.0-4.3); LYMPH % 9.2 % (20.0-40.0); MEAN CELL VOLUME 92.3 fl (80.0-94.0); MEAN CORPUSCULAR HEMOGLOBIN 31.1 pg (27.0-31.0); MEAN CORPUSCULAR HGB CONC 33.6 g/dL (33.0-37.0); MONO # 0.9 K/uL (0.0-0.8); MONO % 9.9 % (0.0-10.0); NEUT # 7.6 K/uL (1.8-7.0); NEUT % 80.6 % (50.0-75.0); PLATELET COUNT 192 K/uL (130-400); RBC 4.08 Mil/uL (4.40-5.90); RED CELL DISTRIBUTION WIDTH 14.7 % (11.5-14.5); WHITE BLOOD COUNT 9.4 K/uL (4.8-10.8)
[2018-06-05] MEDS ORDERED: Naloxone 0.4 mg/ml Inj (Adult) ONE (15:21)
[2018-06-05 15:43] LABS: INR 1.2; PROTHROMBIN TIME 13.6 Seconds (9.8-13.1)
[2018-06-05 15:46] LABS: PARTIAL THROMBOPLASTIN TIME 29.9 Seconds (25.6-37.1)
[2018-06-05 15:50] LABS: ALB/GLOB RATIO 1.1 (1.0-2.1); ALBUMIN 3.9 g/dL (3.5-5.0); ALT/SGPT 142 U/L (21-72); AST/SGOT 96 U/L (17-59); B-TYPE NATRIURETIC PEPTIDE 58.5 pg/ml (0-900); BLOOD UREA NITROGEN 14 mg/dl (9-20); CALCIUM 9.2 mg/dL (8.4-10.2); GFR NON-AFRICAN AMERICAN > 60
[2018-06-05] MEDS ORDERED: Iodixanol 320 MG/ML 100 ML BOTTLE IV ONE (16:00)
[2018-06-05] MEDS ORDERED: Sodium Chloride 0.9% 50 ML IV ONE (16:00)
[2018-06-05 16:15] LABS: BARBITURATES, UR NEGATIVE (NEGATIVE); BENZODIAZEPINES, UR NEGATIVE (NEGATIVE); OPIATES, UR POSITIVE (NEGATIVE); PHENCYCLIDINE, UR NEGATIVE (NEGATIVE)
[2018-06-05 16:56] LABS: LYMPHOCYTE 13 % (20-50); METAMYELOCYTE 1 % (0-0); MONOCYTE 7 % (0-10); MYELOCYTE 1 % (0-0); NEUTROPHIL 78 % (42-75); TOTAL CELLS COUNTED 100
[2018-06-05 16:57] LABS: ANISOCYTOSIS SLIGHT; LARGE PLATELETS PRESENT; PLATELET ESTIMATE NORMAL (NORMAL)
[2018-06-05] MEDS ORDERED: Potassium Chloride 20 mEq ER Tab PO STA (17:19)
--- NOTE | 2018-06-05 17:23 | CT ---
Date of service: 06/05/2018 PROCEDURE: CT Chest with contrast (Pulmonary Angiogram) HISTORY: chest pain COMPARISON: 10/13/2017 CT pulmonary angiogram. TECHNIQUE: Axial computed tomography images were obtained of the chest in the pulmonary arterial phase of enhancement. Coronal and sagittal reformatted images were created and reviewed. Intravenous contrast dose: 70 cc Visipaque 320. Mean Hounsfield value in the main pulmonary artery: 179.82 Radiation dose: Total exam DLP = 267.87 mGy-cm. This CT exam was performed using one or more of the following dose reduction techniques: Automated exposure control, adjustment of the mA and/or kV according to patient size, and/or use of iterative reconstruction technique. FINDINGS: PULMONARY ARTERIES: Suboptimal injection precludes meaningful an accurate assessment beyond the lobar branches. Nonetheless there is a suspicion of filling defects in segmental branches to both lower lobes. This is visible on both axial and sagittal projections. AORTA: No acute findings. No thoracic aortic aneurysm. No atherosclerotic calcification or mural plaque present. LUNGS: Stable pulmonary nodules the largest 4 mm in the right middle lobe. Subsegmental infiltrate or atelectasis basilar segment right lower lobe. PLEURAL SPACES: Unremarkable. No effusion or pneumothorax. HEART: Unremarkable. No cardiomegaly. No significant pericardial effusion. LYMPH NODES: No lymphadenopathy. BONES, CHEST WALL: Unremarkable. No fracture or destructive lesion OTHER FINDINGS: Unremarkable. IMPRESSION: No large, central pulmonary emboli no evidence of pulmonary infarction. Suboptimal study despite which there are filling defects in lower lobe segmental branches bilaterally suspicious for pulmonary embolism. Stable pulmonary nodules. Communication of results: I discussed these findings verbally with the referring physician in the emergency department Dr. Thapa at 17:16.
[2018-06-05] MEDS ORDERED: Heparin 25,000units in D5W 0 UNITS/0 ML BAG IV ONE (17:30)
[2018-06-05] MEDS ORDERED: Heparin 25,000units in D5W 25,000 UNITS/250 ML BAG IV SCH ×2 (17:30→22:15)
[2018-06-05] MEDS ORDERED: Potassium Chloride 20 mEq ER Tab PO ONE (17:32)
[2018-06-05] MEDS ORDERED: Enoxaparin 80 mg Syringe SC ONE (18:00)
[2018-06-05 19:14] LABS: ABG ALLEN TEST YES; ARTERIAL BLOOD GAS HCO3 26.7 mmol/L (21-28); ARTERIAL BLOOD GAS O2 SAT 98.7 % (95-98); ARTERIAL BLOOD GAS PCO2 43 mm/Hg (35-45); ARTERIAL BLOOD GAS PH 7.41 (7.35-7.45); ARTERIAL BLOOD GAS PO2 101 mm/Hg (80-100); ARTERIAL BLOOD GAS TCO2 28.6 mmol/L (22-28)
[2018-06-06 06:54] LABS: HEMOGLOBIN 11.1 g/dL (12.0-18.0); MEAN CELL VOLUME 92.7 fl (80.0-94.0); MEAN CORPUSCULAR HEMOGLOBIN 30.8 pg (27.0-31.0); MEAN CORPUSCULAR HGB CONC 33.3 g/dL (33.0-37.0); RBC 3.61 Mil/uL (4.40-5.90); WHITE BLOOD COUNT 6.2 K/uL (4.8-10.8)
[2018-06-06 07:01] LABS: INR 1.3; PROTHROMBIN TIME 14.3 Seconds (9.8-13.1)
[2018-06-06 07:24] LABS: T4 9.73 ug/dl (5.5-11.0)
[2018-06-06 07:25] LABS: LDL CHOLESTEROL 68 mg/dL (0-129); PARTIAL THROMBOPLASTIN TIME 166.9 Seconds (25.6-37.1)
[2018-06-06 07:28] LABS: ALBUMIN 3.3 g/dL (3.5-5.0); ALT/SGPT 136 U/L (21-72); AST/SGOT 98 U/L (17-59); BLOOD UREA NITROGEN 10 mg/dl (9-20); CALCIUM 8.8 mg/dL (8.4-10.2); GFR NON-AFRICAN AMERICAN > 60
[2018-06-06 07:32] LABS: BLOOD UREA NITROGEN 11 mg/dl (9-20); CALCIUM 8.7 mg/dL (8.4-10.2); GFR NON-AFRICAN AMERICAN > 60; HDL CHOLESTEROL 55 MG/DL (30-70)
[2018-06-06] MEDS ORDERED: Heparin 25,000units in D5W 25,000 UNITS/250 ML BAG IV SCH ×2 (08:40→16:15)
--- NOTE | 2018-06-06 08:55 | CARD ---
APPROVED REPORT Date of service: 06/05/2018 EKG Measurement Heart [id number] <Conclusion> Sinus tachycardia Left ventricular hypertrophy with repolarization abnormality Prolonged QT Abnormal ECG
--- NOTE | 2018-06-06 10:03 | CP.PCM.CON ---
History of Present Illness - History of Present Illness History of Present Illness: this 53-year-old man came to the emergency room complaining of chest pain. Review of his chart shows that he has had numerous visits to the emergency room and has had multiple hospitalizations for drug de pendency and psychiatric issues as well as outs of chest pain. He has been treated for drug dependency and depression.the patient had used heroinethe day before his arrival in the emergency room and urinalysis shows evidence of Amphetamines. during this examination patient was most reluctant to cooperate. Physical examination shows a middle aged man who is easily arousable and answers simple questions by nodding his head. Again he is quite reluctant to communicate. He breathes at 14 breaths per minute and has a heart rate of 104 bpm. Telemetry shows sinus rhythm with heart rates mostly between 100 and 120 bpm. His blood pressure was 130/70 mmHg. His jugular venous pressure was not elevated and there was no edema over his lower extremity. The pedal pulses where distinct of present. There were no carotid bruits. The apex was not palpable the first and second heart sounds are normal there was no murmur or gallop. There were no rales. His abdomen was soft liver and spleen are not palpable. His electrocardiogram in the emergency room showed sinus tachycardia with narrow Q waves none indicated of a myocardial infarction. There were nonspecific ST-T abnormalities. His lab tests show elevated troponin levels at admission. Electro-cardiogram this morning again shows sinus rhythm with narrow Q waves in multiple leads. No evolving pathological Q waves are new ST-T abnormalities were detected.CT scan of the chest was suggestive of subsegmental pulmonary emboli. Blood gases on room air show quite adequate oxygenation. Impression: chronic drug use with recent use of opiates and amphentermine. elevated troponin quite likely represent a persistent significant tachycardia. The patient is receiving heparin for suspected pulmonary emboli though there is no clinical or EKG evidence of right ventricular strain or failure. the patient is stable from cardiovascular point of view. Past Patient History - Infectious Disease Hx of Infectious Diseases: None - Past Medical History & Family History Past Medical History?: Yes - Past Social History Smoking Status: Light Smoker < 10 Cigarettes Daily - CARDIAC Hx Cardiac Disorders: No Hx Hypertension: No - PULMONARY Hx Respiratory Disorders: Yes Hx Asthma: Yes - NEUROLOGICAL Hx Neurological Disorder: No Hx Seizures: No - HEENT Hx HEENT Problems: No - RENAL Hx Chronic Kidney Disease: No - ENDOCRINE/METABOLIC Hx Endocrine Disorders: No - HEMATOLOGICAL/ONCOLOGICAL Hx Blood Disorders: No Hx AIDS: No Hx Human Immunodeficiency Virus (HIV): No - INTEGUMENTARY Hx Dermatological Problems: Yes Hx Cellulitis: Yes - MUSCULOSKELETAL/RHEUMATOLOGICAL Hx Musculoskeletal Disorders: No Hx Falls: No - GASTROINTESTINAL Hx Gastrointestinal Disorders: No - GENITOURINARY/GYNECOLOGICAL Hx Genitourinary Disorders: Yes Hx Sexually Transmitted Disorders: Yes - PSYCHIATRIC Hx Psychophysiologic Disorder: Yes Hx Anxiety: Yes Hx Depression: Yes Hx Substance Use: No - SURGICAL HISTORY Hx Surgeries: Yes Other/Comment: R arm cyst removal - ANESTHESIA Hx Anesthesia: Yes Hx Anesthesia Reactions: No Hx Malignant Hyperthermia: No Meds Allergies/Adverse Reactions: Allergies Allergy/AdvReac Type Severity Reaction Status Date / Time No Known Allergies Allergy Verified 05/10/18 23:25 - Medications Medications: Current Medications Heparin Sodium/Dextrose (Heparin 25,000 Units/250ml In D5w) 25,000 units in 250 mls @ 9 mls/hr IV .Q24H KAILEE; Protocol Results - Vital Signs Recent Vital Signs: Last Vital Signs Temp 97.4 F L 06/06/18 08:26 Pulse 113 H 06/06/18 08:26 Resp 20 06/06/18 08:26 BP 111/56 L 06/06/18 08:26 Pulse Ox 99 06/06/18 08:26 - Labs Result Diagrams: 06/06/18 05:20 06/06/18 05:20 Labs: Laboratory Results - last 24 hr 06/05/18 06/05/18 06/05/18 15:16 15:16 15:16 WBC 9.4 RBC 4.08 L Hgb 12.7 Hct 37.7 MCV 92.3 MCH 31.1 H MCHC 33.6 RDW 14.7 H Plt Count 192 MPV 8.0 Neut % (Auto) 80.6 H Lymph % (Auto) 9.2 L [place] % (Auto) 9.9 Eos % (Auto) 0.2 Baso % (Auto) 0.1 Neut # (Auto) 7.6 H Lymph # (Auto) 0.9 L [place] # (Auto) 0.9 H Eos # (Auto) 0.0 Baso # (Auto) 0.0 Neutrophils % (Manual) 78 H Lymphocytes % (Manual) 13 L Monocytes % (Manual) 7 Metamyelocytes % 1 H Myelocytes % 1 H Platelet Estimate Normal Large Platelets Present Anisocytosis (manual) Slight PT 13.6 H INR 1.2 APTT 29.9 pCO2 pO2 HCO3 ABG pH ABG Total CO2 ABG O2 Saturation ABG Base Excess Chris Test ABG Potassium A-a O2 Difference Glucose Lactate FiO2 Crit Value Called To Crit Value Called By Crit Value Read Back Blood Gas Notified Time Sodium 143 Potassium 2.8 L Chloride 103 Carbon Dioxide 26 Anion Gap 17 BUN 14 Creatinine 0.6 L Est GFR ( Amer) > 60 Est GFR (Non-Af Amer) > 60 Random Glucose 135 H Calcium 9.2 Total Bilirubin 0.3 AST 96 H ALT 142 H D Alkaline Phosphatase 78 Troponin I 0.1910 H* NT-Pro-B Natriuret Pep 58.5 Total Protein 7.6 Albumin 3.9 Globulin 3.7 Albumin/Globulin Ratio 1.1 Triglycerides Cholesterol LDL Cholesterol Direct HDL Cholesterol Thyroxine (T4) TSH 3rd Generation Arterial Blood Potassium Urine Opiates Screen Urine Methadone Screen Ur Barbiturates Screen Ur Phencyclidine Scrn Ur Amphetamines Screen U Benzodiazepines Scrn U Oth Cocaine Metabols U Cannabinoids Screen Alcohol, Quantitative < 10 Influenza Typ A,B (EIA) 06/05/18 06/05/18 06/05/18 15:16 15:41 19:03 WBC RBC Hgb Hct MCV MCH MCHC RDW Plt Count MPV Neut % (Auto) Lymph % (Auto) [place] % (Auto) Eos % (Auto) Baso % (Auto) Neut # (Auto) Lymph # (Auto) [place] # (Auto) Eos # (Auto) Baso # (Auto) Neutrophils % (Manual) Lymphocytes % (Manual) Monocytes % (Manual) Metamyelocytes % Myelocytes % Platelet Estimate Large Platelets Anisocytosis (manual) PT INR APTT pCO2 43 pO2 101 H HCO3 26.7 ABG pH 7.41 ABG Total CO2 28.6 H ABG O2 Saturation 98.7 H ABG Base Excess 2.2 Chirs Test Yes ABG Potassium 3.4 L A-a O2 Difference -5.0 Glucose 164 H Lactate 4.3 H* FiO2 21.0 Crit Value Called To viv Thapa md Crit Value Called By Korin [place] Crit Value Read Back Y Blood Gas Notified Time 1912 Sodium 138.0 Potassium Chloride 108.0 H Carbon Dioxide Anion Gap BUN Creatinine Est GFR ( Amer) Est GFR (Non-Af Amer) Random Glucose Calcium Total Bilirubin AST ALT Alkaline Phosphatase Troponin I NT-Pro-B Natriuret Pep Total Protein Albumin Globulin Albumin/Globulin Ratio Triglycerides Cholesterol LDL Cholesterol Direct HDL Cholesterol Thyroxine (T4) TSH 3rd Generation Arterial Blood Potassium 3.4 L Urine Opiates Screen Positive H Urine Methadone Screen Negative Ur Barbiturates Screen Negative Ur Phencyclidine Scrn Negative Ur Amphetamines Screen Positive H U Benzodiazepines Scrn Negative U Oth Cocaine Metabols Negative U Cannabinoids Screen Negative Alcohol, Quantitative Influenza Typ A,B (EIA) Negative for flu a/b 06/06/18 06/06/18 06/06/18 05:20 05:20 05:20 WBC 6.2 RBC 3.61 L Hgb 11.1 L Hct 33.5 L MCV 92.7 MCH 30.8 MCHC 33.3 RDW 15.0 H Plt Count 167 MPV Neut % (Auto) Lymph % (Auto) [place] % (Auto) Eos % (Auto) Baso % (Auto) Neut # (Auto) Lymph # (Auto) [place] # (Auto) Eos # (Auto) Baso # (Auto) Neutrophils % (Manual) Lymphocytes % (Manual) Monocytes % (Manual) Metamyelocytes % Myelocytes % Platelet Estimate Large Platelets Anisocytosis (manual) PT 14.3 H INR 1.3 APTT 166.9 H pCO2 pO2 HCO3 ABG pH ABG Total CO2 ABG O2 Saturation ABG Base Excess Chris Test ABG Potassium A-a O2 Difference Glucose Lactate FiO2 Crit Value Called To Crit Value Called By Crit Value Read Back Blood Gas Notified Time Sodium 141 Potassium 4.2 Chloride 110 H Carbon Dioxide 26 Anion Gap 9 L BUN 11 Creatinine 0.6 L Est GFR ( Amer) > 60 Est GFR (Non-Af Amer) > 60 Random Glucose 109 Calcium 8.7 Total Bilirubin AST ALT Alkaline Phosphatase Troponin I NT-Pro-B Natriuret Pep Total Protein Albumin Globulin Albumin/Globulin Ratio Triglycerides 58 D Cholesterol 132 LDL Cholesterol Direct 68 HDL Cholesterol 55 Thyroxine (T4) 9.73 TSH 3rd Generation 0.09 L Arterial Blood Potassium Urine Opiates Screen Urine Methadone Screen Ur Barbiturates Screen Ur Phencyclidine Scrn Ur Amphetamines Screen U Benzodiazepines Scrn U Oth Cocaine Metabols U Cannabinoids Screen Alcohol, Quantitative Influenza Typ A,B (EIA) 06/06/18 05:20 WBC RBC Hgb Hct MCV MCH MCHC RDW Plt Count MPV Neut % (Auto) Lymph % (Auto) [place] % (Auto) Eos % (Auto) Baso % (Auto) Neut # (Auto) Lymph # (Auto) [place] # (Auto) Eos # (Auto) Baso # (Auto) Neutrophils % (Manual) Lymphocytes % (Manual) Monocytes % (Manual) Metamyelocytes % Myelocytes % Platelet Estimate Large Platelets Anisocytosis (manual) PT INR APTT pCO2 pO2 HCO3 ABG pH ABG Total CO2 ABG O2 Saturation ABG Base Excess Chris Test ABG Potassium A-a O2 Difference Glucose Lactate FiO2 Crit Value Called To Crit Value Called By Crit Value Read Back Blood Gas Notified Time Sodium 143 Potassium 4.2 Chloride 110 H Carbon Dioxide 27 Anion Gap 10 BUN 10 Creatinine 0.5 L Est GFR ( Amer) > 60 Est GFR (Non-Af Amer) > 60 Random Glucose 109 Calcium 8.8 Total Bilirubin 0.3 AST 98 H ALT 136 H Alkaline Phosphatase 72 Troponin I NT-Pro-B Natriuret Pep Total Protein 6.5 Albumin 3.3 L Globulin 3.3 Albumin/Globulin Ratio 1.0 Triglycerides Cholesterol LDL Cholesterol Direct HDL Cholesterol Thyroxine (T4) TSH 3rd Generation Arterial Blood Potassium Urine Opiates Screen Urine Methadone Screen Ur Barbiturates Screen Ur Phencyclidine Scrn Ur Amphetamines Screen U Benzodiazepines Scrn U Oth Cocaine Metabols U Cannabinoids Screen Alcohol, Quantitative Influenza Typ A,B (EIA)
[2018-06-06 15:31] LABS: INR 1.2; PROTHROMBIN TIME 13.8 Seconds (9.8-13.1)
[2018-06-06 15:34] LABS: PARTIAL THROMBOPLASTIN TIME 76.2 Seconds (25.6-37.1)
--- NOTE | 2018-06-06 16:34 | CP.PCM.HP ---
History of Present Illness - History of Present Illness History of Present Illness: 54 years [facility], Patient is not answering questions at this moment, cannot describe the chest pain, most of the history is obtained for reviewing the chart, patient used heroine yesterday, denies EtOH. No dizziness, no syncope, no swelling, no nausea vomiting or diarrhea, no leg pain Patient had been treated for drug dependency and depression, previous hospitalization for drug dependency History of hypertension, bronchial asthma, sexually transmitted disorders, anxiety, depression Urine drug screen positive for opiates and amphetamines, EKG sinus tachycardia left ventricular hypertrophy with repolarization abnormality, prolonged QT Angio Chest PE protocol :lower lobe segmental branch suspicious for pulmonary embolism, no large central pulmonary emboli no evidence of pulmonary infarction, a stable pulmonary nodules First troponin 0.007 Past Patient History - Infectious Disease Hx of Infectious Diseases: None - Past Medical History & Family History Past Medical History?: Yes - Past Social History Smoking Status: Light Smoker < 10 Cigarettes Daily - CARDIAC Hx Cardiac Disorders: No Hx Hypertension: No - PULMONARY Hx Respiratory Disorders: Yes Hx Asthma: Yes - NEUROLOGICAL Hx Neurological Disorder: No Hx Seizures: No - HEENT Hx HEENT Problems: No - RENAL Hx Chronic Kidney Disease: No - ENDOCRINE/METABOLIC Hx Endocrine Disorders: No - HEMATOLOGICAL/ONCOLOGICAL Hx Blood Disorders: No Hx AIDS: No Hx Human Immunodeficiency Virus (HIV): No - INTEGUMENTARY Hx Dermatological Problems: Yes Hx Cellulitis: Yes - MUSCULOSKELETAL/RHEUMATOLOGICAL Hx Musculoskeletal Disorders: No Hx Falls: No - GASTROINTESTINAL Hx Gastrointestinal Disorders: No - GENITOURINARY/GYNECOLOGICAL Hx Genitourinary Disorders: Yes Hx Sexually Transmitted Disorders: Yes - PSYCHIATRIC Hx Psychophysiologic Disorder: Yes Hx Anxiety: Yes Hx Depression: Yes Hx Substance Use: No - SURGICAL HISTORY Hx Surgeries: Yes Other/Comment: R arm cyst removal - ANESTHESIA Hx Anesthesia: Yes Hx Anesthesia Reactions: No Hx Malignant Hyperthermia: No Meds Allergies/Adverse Reactions: Allergies Allergy/AdvReac Type Severity Reaction Status Date / Time No Known Allergies Allergy Verified 05/10/18 23:25 Physical Exam - Constitutional Appears: No Acute Distress - Head Exam Head Exam: NORMAL INSPECTION - Eye Exam Eye Exam: PERRL - ENT Exam ENT Exam: Normal Exam - Neck Exam Neck exam: Positive for: Normal Inspection - Respiratory Exam Respiratory Exam: Clear to Auscultation Bilateral, NORMAL BREATHING PATTERN - Cardiovascular Exam Cardiovascular Exam: REGULAR RHYTHM - GI/Abdominal Exam GI & Abdominal Exam: Normal Bowel Sounds, Soft - Extremities Exam Extremities exam: Positive for: normal inspection - Back Exam Back exam: NORMAL INSPECTION - Neurological Exam Additional comments: awake, follows commands, not answering questions, no focal/motor/sensory def icit Results - Vital Signs Recent Vital Signs: Last Vital Signs Temp 98.9 F 06/06/18 16:04 Pulse 114 H 06/06/18 16:04 Resp 16 06/06/18 16:04 BP 128/84 06/06/18 16:04 Pulse Ox 99 06/06/18 16:04 - Labs Result Diagrams: 06/07/18 05:30 06/07/18 05:30 Labs: Laboratory Results - last 24 hr 06/05/18 06/05/18 06/06/18 15:16 19:03 05:20 WBC 6.2 RBC 3.61 L Hgb 11.1 L Hct 33.5 L MCV 92.7 MCH 30.8 MCHC 33.3 RDW 15.0 H Plt Count 167 Neutrophils % (Manual) 78 H Lymphocytes % (Manual) 13 L Monocytes % (Manual) 7 Metamyelocytes % 1 H Myelocytes % 1 H Platelet Estimate Normal Large Platelets Present Anisocytosis (manual) Slight PT INR APTT pCO2 43 pO2 101 H HCO3 26.7 ABG pH 7.41 ABG Total CO2 28.6 H ABG O2 Saturation 98.7 H ABG Base Excess 2.2 Chris Test Yes ABG Potassium 3.4 L A-a O2 Difference -5.0 Sodium 138.0 Chloride 108.0 H Glucose 164 H Lactate 4.3 H* FiO2 21.0 Crit Value Called To viv Thapa md Crit Value Called By [facility] Crit Value Read Back Y Blood Gas Notified Time 1912 Potassium Carbon Dioxide Anion Gap BUN Creatinine Est GFR ( Amer) Est GFR (Non-Af Amer) POC Glucose (mg/dL) Random Glucose Calcium Total Bilirubin AST ALT Alkaline Phosphatase Troponin I Total Protein Albumin Globulin Albumin/Globulin Ratio Triglycerides Cholesterol LDL Cholesterol Direct HDL Cholesterol Thyroxine (T4) TSH 3rd Generation Arterial Blood Potassium 3.4 L 06/06/18 06/06/18 06/06/18 05:20 05:20 05:20 WBC RBC Hgb Hct MCV MCH MCHC RDW Plt Count Neutrophils % (Manual) Lymphocytes % (Manual) Monocytes % (Manual) Metamyelocytes % Myelocytes % Platelet Estimate Large Platelets Anisocytosis (manual) PT 14.3 H INR 1.3 APTT 166.9 H pCO2 pO2 HCO3 ABG pH ABG Total CO2 ABG O2 Saturation ABG Base Excess Chris Test ABG Potassium A-a O2 Difference Sodium 141 143 Chloride 110 H 110 H Glucose Lactate FiO2 Crit Value Called To Crit Value Called By Crit Value Read Back Blood Gas Notified Time Potassium 4.2 4.2 Carbon Dioxide 26 27 Anion Gap 9 L 10 BUN 11 10 Creatinine 0.6 L 0.5 L Est GFR ( Amer) > 60 > 60 Est GFR (Non-Af Amer) > 60 > 60 POC Glucose (mg/dL) Random Glucose 109 109 Calcium 8.7 8.8 Total Bilirubin 0.3 AST 98 H ALT 136 H Alkaline Phosphatase 72 Troponin I Total Protein 6.5 Albumin 3.3 L Globulin 3.3 Albumin/Globulin Ratio 1.0 Triglycerides 58 D Cholesterol 132 LDL Cholesterol Direct 68 HDL Cholesterol 55 Thyroxine (T4) 9.73 TSH 3rd Generation 0.09 L Arterial Blood Potassium 06/06/18 06/06/18 06/06/18 11:21 12:32 14:37 WBC RBC Hgb Hct MCV MCH MCHC RDW Plt Count Neutrophils % (Manual) Lymphocytes % (Manual) Monocytes % (Manual) Metamyelocytes % Myelocytes % Platelet Estimate Large Platelets Anisocytosis (manual) PT 13.8 H INR 1.2 APTT 76.2 H pCO2 pO2 HCO3 ABG pH ABG Total CO2 ABG O2 Saturation ABG Base Excess Chris Test ABG Potassium A-a O2 Difference Sodium Chloride Glucose Lactate FiO2 Crit Value Called To Crit Value Called By Crit Value Read Back Blood Gas Notified Time Potassium Carbon Dioxide Anion Gap BUN Creatinine Est GFR ( Amer) Est GFR (Non-Af Amer) POC Glucose (mg/dL) 124 H Random Glucose Calcium Total Bilirubin AST ALT Alkaline Phosphatase Troponin I 0.0760 Total Protein Albumin Globulin Albumin/Globulin Ratio Triglycerides Cholesterol LDL Cholesterol Direct HDL Cholesterol Thyroxine (T4) TSH 3rd Generation Arterial Blood Potassium Assessment & Plan (1) Elevated troponin Status: Acute (2) Pulmonary emboli Status: Acute (3) Chest pain Status: Acute (4) Drug dependency Status: Chronic (5) Heroin abuse Status: Acute (6) Amphetamine abuse Status: Acute - Assessment and Plan (Free Text) Plan: Continue heparin drip, Ativan 1 mg IV every 4 hours as needed agitation, strategic sourcing consultant feels elevated troponin likely represent a persistent significant tachycardia, attempt to obtain venous Doppler of lower extremities, follow-up second and third troponin, follow-up PT PTT INR in a.m.
[2018-06-06 22:33] LABS: INR 1.2; PROTHROMBIN TIME 13.8 Seconds (9.8-13.1)
[2018-06-06 22:36] LABS: PARTIAL THROMBOPLASTIN TIME 43.1 Seconds (25.6-37.1)
[2018-06-07 06:44] LABS: BASO % 0.1 % (0.0-2.0); HEMOGLOBIN 13.2 g/dL (12.0-18.0); LYMPH # 1.2 K/uL (1.0-4.3); LYMPH % 17.5 % (20.0-40.0); MEAN CELL VOLUME 92.1 fl (80.0-94.0); MEAN CORPUSCULAR HEMOGLOBIN 30.4 pg (27.0-31.0); MEAN PLATELET VOLUME 7.9 fl (7.2-11.7); MONO # 0.4 K/uL (0.0-0.8); MONO % 6.4 % (0.0-10.0); RBC 4.34 Mil/uL (4.40-5.90); RED CELL DISTRIBUTION WIDTH 15.2 % (11.5-14.5); WHITE BLOOD COUNT 6.6 K/uL (4.8-10.8)
[2018-06-07 06:49] LABS: INR 1.2
[2018-06-07 07:12] LABS: ALBUMIN 4.1 g/dL (3.5-5.0); ALT/SGPT 135 U/L (21-72); AST/SGOT 85 U/L (17-59); BLOOD UREA NITROGEN 9 mg/dl (9-20); CALCIUM 9.2 mg/dL (8.4-10.2); GFR NON-AFRICAN AMERICAN > 60
--- NOTE | 2018-06-07 11:44 | CP.PCM.PN ---
Subjective - Subjective Subjective: Patient reported by nurses of with periods of agitation and hands tremor, requiring Dilaudid IV. He denies shortness of breath, denies chest pain, denies leg pain chest pain Objective - Vital Signs/Intake and Output Vital Signs (last 24 hours): Temp Pulse Resp BP Pulse Ox 99 F 95 H 18 129/78 98 06/07/18 08:38 06/07/18 08:38 06/07/18 08:38 06/07/18 08:38 06/07/18 08:38 Intake and Output: 06/07/18 06/07/18 06:59 18:59 Intake Total Balance - Medications Medications: Current Medications Heparin Sodium/Dextrose (Heparin 25,000 Units/250ml In D5w) 25,000 units in 250 mls @ 7 mls/hr IV .Q24H KAILEE; Protocol Last Titration: 06/06/18 23:46 Dose: 8.5 mls/hr Lorazepam (Ativan) 1 mg IV Q4 PRN PRN Reason: Agitation Last Admin: 06/07/18 08:37 Dose: 1 mg Ondansetron HCl (Zofran Inj) 4 mg IVP Q6 PRN PRN Reason: Nausea/Vomiting Last Admin: 06/07/18 04:44 Dose: 4 mg - Labs Labs: 06/07/18 05:30 06/07/18 05:30 PT 14.0 Seconds (9.8-13.1) H 06/07/18 05:30 INR 1.2 06/07/18 05:30 APTT 52.7 Seconds (25.6-37.1) H 06/07/18 06:00 - Constitutional Appears: No Acute Distress - Head Exam Head Exam: NORMAL INSPECTION - Eye Exam Eye Exam: PERRL - ENT Exam ENT Exam: Normal Exam - Neck Exam Neck Exam: Normal Inspection - Respiratory Exam Respiratory Exam: Clear to Ausculation Bilateral, NORMAL BREATHING PATTERN - Cardiovascular Exam Cardiovascular Exam: REGULAR RHYTHM - GI/Abdominal Exam GI & Abdominal Exam: Soft, Normal Bowel Sounds - Extremities Exam Extremities Exam: Normal Inspection - Back Exam Back Exam: NORMAL INSPECTION - Neurological Exam Neurological Exam: Alert, Awake, CN II-XII Intact Additional comments: no focal motor/sensory deficit, follows commands, no hands tremor at the moment of examination Assessment and Plan (1) Chest pain Assessment & Plan: non Cardiac Status: Acute (2) Elevated troponin Assessment & Plan: 2nd to tachycardia Status: Acute (3) Pulmonary emboli Status: Acute (4) Amphetamine abuse Status: Acute (5) Heroin abuse Status: Acute (6) Drug dependency Status: Chronic - Assessment and Plan (Free Text) Plan: Begin Eliquis, DC Heparin drip, continue Ativan IV, f/u Psychiatric consult, f/u Social Service. Patient wanted to sign AMA, discussed with him and he agreed to stay in the hospital.
--- NOTE | 2018-06-07 14:24 | CP.PCM.PN ---
Subjective - Date & Time of Evaluation Date of Evaluation: 06/07/18 Time of Evaluation: 14:00 - Subjective Subjective: telemetry shows that the patient's rhythm has been quite stable over last 24 hours. Patient is extremely reluctant to communicate and does not wish to be examined. Telemetry shows sinus rhythm at rates between 90 bpm and 100 bpm with a rare supraventricular premature beats. His blood pressure was 140/70 mmHg. his cardiac auscultation showed normal first and second heart sound without any evidence of cardiac murmur or gallop. The lab results where satisfactory. Follow-up troponin levels after an initial elevated level were all normal. The patient may be switched from intravenous anticoagulated and the form of heparin to oral anticoagulation as Xarelto, and allowed to return home Though, given his propensity for chronic substance abuse, his compliance with this line of management is very doubtful. Objective - Vital Signs/Intake and Output Vital Signs (last 24 hours): Temp Pulse Resp BP Pulse Ox 98.4 F 87 20 138/83 95 06/07/18 12:42 06/07/18 12:42 06/07/18 12:42 06/07/18 12:42 06/07/18 12:42 Intake and Output: 06/07/18 06/07/18 06:59 18:59 Intake Total Balance - Medications Medications: Current Medications Apixaban (Eliquis) 10 mg PO BID KAILEE; Protocol Lorazepam (Ativan) 1 mg IV Q3 PRN PRN Reason: Agitation Ondansetron HCl (Zofran Inj) 4 mg IVP Q6 PRN PRN Reason: Nausea/Vomiting Last Admin: 06/07/18 04:44 Dose: 4 mg - Labs Labs: 06/07/18 05:30 06/07/18 05:30 PT 14.0 Seconds (9.8-13.1) H 06/07/18 05:30 INR 1.2 06/07/18 05:30 APTT 52.6 Seconds (25.6-37.1) H 06/07/18 12:00
[2018-06-08 05:59] LABS: BASO % 0.1 % (0.0-2.0); HEMOGLOBIN 13.7 g/dL (12.0-18.0); LYMPH # 1.2 K/uL (1.0-4.3); LYMPH % 15.1 % (20.0-40.0); MEAN CELL VOLUME 92.5 fl (80.0-94.0); MEAN CORPUSCULAR HEMOGLOBIN 30.6 pg (27.0-31.0); MONO # 0.7 K/uL (0.0-0.8); MONO % 8.7 % (0.0-10.0); NEUT # 6.2 K/uL (1.8-7.0); NEUT % 76.1 % (50.0-75.0); RBC 4.47 Mil/uL (4.40-5.90); RED CELL DISTRIBUTION WIDTH 15.2 % (11.5-14.5); WHITE BLOOD COUNT 8.2 K/uL (4.8-10.8)
[2018-06-08 06:13] LABS: INR 1.4; PROTHROMBIN TIME 15.9 Seconds (9.8-13.1)
[2018-06-08 06:16] LABS: PARTIAL THROMBOPLASTIN TIME 33.1 Seconds (25.6-37.1)
[2018-06-08 06:48] LABS: BLOOD UREA NITROGEN 13 mg/dl (9-20); CALCIUM 9.1 mg/dL (8.4-10.2); GFR NON-AFRICAN AMERICAN > 60
[2018-06-08 08:27] VITALS: BP 117/78; PULSE 94; RESP 18; TEMP 98.5; O2SAT 97
--- NOTE | 2018-06-08 11:44 | CARD ---
APPROVED REPORT Date of service: 06/06/2018 EKG Measurement Heart [id number] <Conclusion> Sinus tachycardia Nonspecific ST and T wave abnormality Abnormal ECG
--- NOTE | 2018-06-08 12:11 | CP.PCM.CON ---
History of Present Illness - History of Present Illness History of Present Illness: consult requested as pt is irritable and requesting to leave the hospital against medical advise pt is 53 year old male with previous psychiatric diagnosis of opiate dependence continuos presents to the ED for chest pain pt was admitted to medical floor, being evaluated for left-sided chest pain radiating down to his left arm and fever On evaluation, pt reported he continues to use heroin , guarded about the amount and route, stated he has no current active suicidal thoughts or plans, denied any symptoms of depression , requesting to leave as he has a court date for possession tomorrow pt is awake and alert , oriented x3, discussed with patient risks and benefits of continuing with treatment pt was able to verbalize the risks knowing that this means interruption of his medical care, also understands that with continuous use of opiates there is a risk of overdose. pt continues to decline receiving medical or psychiatric treatment and requesting to be discharged against medical advise Past Patient History - Infectious Disease Hx of Infectious Diseases: None - Past Medical History & Family History Past Medical History?: Yes - Past Social History Smoking Status: Light Smoker < 10 Cigarettes Daily - CARDIAC Hx Cardiac Disorders: No Hx Hypertension: No - PULMONARY Hx Respiratory Disorders: Yes Hx Asthma: Yes - NEUROLOGICAL Hx Neurological Disorder: No Hx Seizures: No - HEENT Hx HEENT Problems: No - RENAL Hx Chronic Kidney Disease: No - ENDOCRINE/METABOLIC Hx Endocrine Disorders: No - HEMATOLOGICAL/ONCOLOGICAL Hx Blood Disorders: No Hx AIDS: No Hx Human Immunodeficiency Virus (HIV): No - INTEGUMENTARY Hx Dermatological Problems: Yes Hx Cellulitis: Yes - MUSCULOSKELETAL/RHEUMATOLOGICAL Hx Musculoskeletal Disorders: No Hx Falls: No - GASTROINTESTINAL Hx Gastrointestinal Disorders: No - GENITOURINARY/GYNECOLOGICAL Hx Genitourinary Disorders: Yes Hx Sexually Transmitted Disorders: Yes - PSYCHIATRIC Hx Psychophysiologic Disorder: Yes Hx Anxiety: Yes Hx Depression: Yes Hx Substance Use: No - SURGICAL HISTORY Hx Surgeries: Yes Other/Comment: R arm cyst removal - ANESTHESIA Hx Anesthesia: Yes Hx Anesthesia Reactions: No Hx Malignant Hyperthermia: No Meds Allergies/Adverse Reactions: Allergies Allergy/AdvReac Type Severity Reaction Status Date / Time No Known Allergies Allergy Verified 05/10/18 23:25 - Medications Medications: Current Medications Apixaban (Eliquis) 10 mg PO BID KAILEE; Protocol Last Admin: 06/07/18 18:22 Dose: Not Given Lorazepam (Ativan) 1 mg IV Q3 PRN PRN Reason: Agitation Last Admin: 06/07/18 18:27 Dose: 1 mg Ondansetron HCl (Zofran Inj) 4 mg IVP Q6 PRN PRN Reason: Nausea/Vomiting Last Admin: 06/07/18 04:44 Dose: 4 mg Physical Exam - Psychiatric Exam Additional comments: pt seen in bed, speech normal, thought form goal directed, reported mood is fine affect is constricted , denied any current perceptual disturbances, non elicited, denied suicidal or homicidal ideation, alert awake ox3, poor insight and judgment Results - Vital Signs Recent Vital Signs: Last Vital Signs Temp 99.1 F 06/08/18 01:00 Pulse 84 06/08/18 01:00 Resp 20 06/08/18 01:00 BP 126/83 06/08/18 01:00 Pulse Ox 99 06/08/18 01:00 - Labs Result Diagrams: 06/08/18 04:20 06/08/18 04:20 Labs: Laboratory Results - last 24 hr 06/07/18 06/07/18 06/08/18 06:00 12:00 04:20 WBC 8.2 RBC 4.47 Hgb 13.7 Hct 41.4 MCV 92.5 MCH 30.6 MCHC 33.0 RDW 15.2 H Plt Count 230 MPV 8.0 Neut % (Auto) 76.1 H Lymph % (Auto) 15.1 L Christian % (Auto) 8.7 Eos % (Auto) 0.0 Baso % (Auto) 0.1 Neut # (Auto) 6.2 Lymph # (Auto) 1.2 Christian # (Auto) 0.7 Eos # (Auto) 0.0 Baso # (Auto) 0.0 PT INR APTT 52.7 H 52.6 H Sodium Potassium Chloride Carbon Dioxide Anion Gap BUN Creatinine Est GFR ( Amer) Est GFR (Non-Af Amer) Random Glucose Calcium 06/08/18 06/08/18 04:20 04:20 WBC RBC Hgb Hct MCV MCH MCHC RDW Plt Count MPV Neut % (Auto) Lymph % (Auto) Christian % (Auto) Eos % (Auto) Baso % (Auto) Neut # (Auto) Lymph # (Auto) Christian # (Auto) Eos # (Auto) Baso # (Auto) PT 15.9 H INR 1.4 APTT 33.1 Sodium 140 Potassium 4.1 Chloride 108 H Carbon Dioxide 25 Anion Gap 11 BUN 13 Creatinine 0.5 L Est GFR ( Amer) > 60 Est GFR (Non-Af Amer) > 60 Random Glucose 109 Calcium 9.1 Assessment & Plan - Assessment and Plan (Free Text) Assessment: opiate abuse continuos 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
--- NOTE | 2018-06-09 07:26 | PQF ---
PROVIDER RESPONSE TEXT: NH ruled out. REVIEWER QUERY TEXT: Clarification of Clinical Diagnostic Findings NH ruled in versus NH ruled out? 06/06: EKG: Conclusion> Sinus tachycardia Left ventricular hypertrophy with repolarization abnormali ty Prolonged QT Abnormal ECG 06/08: EKG: Conclusion> Sinus tachycardia Nonspecific ST and T wave abnormality Abnormal ECG Cardiology consult includes: Cardio: EKG in the ER showed sinus tachycardia with narrow Q waves none indicated of a NH . There were nonspecific ST-T abnormalities. His lab tests show elevated troponin l evels at admission Impression: chronic drug use with recent use of opiates and amphetarmine. elevated troponin quite lik bailee represent a persistent significant tachycardia. The patient is receiving heparin for suspected pu lmonary emboli though there is no clinical or EKG evidence of right ventricular strain or failure. th e patient is stable from cardiovascular point of view. 06/07 Cardiology follow up progress note includes: F/up trop levels after an initial elevated level we re all normal; pt may be switched from IV anticoagulant and the form of heparin to oral anticoagulant as Xarelto The patient's Clinical Indicators include: - Query created by: Valarie Jim on 06/08/2018 1:17 PM Electronically signed by: Goran Lofton MD 06/09/2018 7:23 AM
--- NOTE | 2018-06-09 12:38 | PQF ---
PROVIDER RESPONSE TEXT: Unable to determine REVIEWER QUERY TEXT: Depression Type Depression is documented in the Medical Record. Please specify the type if known: i.e. -- Agitated depression -- Anxiety depression, mild or not persistent -- Anxiety depression, persistent -- Hysterical depression -- Major depression (Please specify severity - mild, moderate, severe) -- Bipolar depression -- Reactive -- Situational / Grief reaction -- Other, please specify --Unable to determine H and P: Patient had been treated for drug dependency and depression, previous hospitalization for dr trujillo dependency -History of hypertension, bronchial asthma, sexually transmitted disorders, anxiety, depression Psych consult; On evaluation, pt reported he continues to use heroin , guarded about the amount and r oute, stated he has no current active suicidal thoughts or plans, denied any symptoms of depression , requesting to leave as he has a court date for possession tomorrow Past Social History :-Hx Depression: Yes Assessment opiate abuse continuous substance induced mood disorder with depressive features The patient's Clinical Indicators include: - Query created by: Valarie Jim on 06/08/2018 1:11 PM Electronically signed by: Wu Mo MD 06/09/2018 12:34 PM
[2018-06-10 05:33] LABS: CARDIOLIPIN AB (IGA) <11 APL (<=11); CARDIOLIPIN AB (IGG) <14 GPL (<=14); CARDIOLIPIN AB (IGM) <12 MPL (<=12)
== END 2018-06-08 08:43 | disposition left against medical advice (07) | DRG 134 ==
LOC: H.ER 13:53 → H.ERHOLD 17:24 → H.TEL 21:09
PROVIDERS: ADMIT Internal Medicine Pulmonary Disease; ATTEND Internal Medicine Pulmonary Disease
DX: I26.99 Other pulmonary embolism without acute cor pulmonale (principal); I10 Essential (primary) hypertension; E87.6 Hypokalemia; F11.14 Opioid abuse with opioid-induced mood disorder; F15.10 Other stimulant abuse, uncomplicated; J45.909 Unspecified asthma, uncomplicated; F17.210 Nicotine dependence, cigarettes, uncomplicated; F32.9 Major depressive disorder, single episode, unspecified

== ENCOUNTER 2018-06-08 17:05 | Observation (INO) | payer OTHER ==
[2018-06-08 17:05] VITALS: BMI 24.7
[2018-06-08 18:32] LABS: INR 1.2; PROTHROMBIN TIME 14.1 Seconds (9.8-13.1)
--- NOTE | 2018-06-08 18:34 | ED PDOC ---
HPI: General Adult Time Seen by Provider: 06/08/18 17:30 Chief Complaint (Nursing): Weakness/Neurological Deficit Chief Complaint (Provider): Generalized Weakness History Per: Patient History/Exam Limitations: no limitations Current Symptoms Are (Timing): Still Present Additional Complaint(s): 53 year old male, with a past medical history of heroine dependence, depression, HTN, and asthma, was just admitted to this hospital for a pulmonary embolism but signed out AMA this morning because he had "things to take care of". Patient reports he presented to the ER today to continue patient care and reports of having some chest tightness but denies pain. Denies using heroine prior to coming to the ER today. Denies other drug or alcohol use, leg pain or swelling, or SOB. Patient believes he got Heparin today before leaving. Patient reports he is sleepy because he was given Ativan. History may be unreliable due to possibility of drug intoxication. PMD: none Past Medical History Reviewed: Historical Data, Nursing Documentation, Vital Signs Vital Signs: Last Vital Signs Temp 98.0 F 06/08/18 17:33 Pulse 94 H 06/08/18 17:33 Resp 12 06/08/18 17:33 BP Pulse Ox 98 06/08/18 17:33 - Medical History PMH: Anxiety, Asthma, Depression, Hepatitis (Hep C), HTN, Sexually Transmitted Disease Denies: Diabetes, HIV, Chronic Kidney Disease, Seizures - Surgical History Surgical History: No Surg Hx - Family History Family History: States: No Known Family Hx - Immunization History Hx Tetanus Toxoid Vaccination: Yes Hx Influenza Vaccination: No Hx Pneumococcal Vaccination: No - Home Medications Home Medications: Ambulatory Orders Medication Instructions Recorded No Known Home Med 06/05/18 - Allergies Allergies/Adverse Reactions: Allergies Allergy/AdvReac Type Severity Reaction Status Date / Time No Known Allergies Allergy Verified 06/08/18 17:33 Review of Systems ROS Statement: Except As Marked, All Systems Reviewed And Found Negative (as per HPI) Cardiovascular: Positive for: Other (Chest pressure). Negative for: Chest Pain Respiratory: Negative for: Shortness of Breath Musculoskeletal: Negative for: Leg Pain (or swelling) Neurological: Positive for: Weakness (Generalized) Physical Exam - Reviewed Nursing Documentation Reviewed: Yes Vital Signs Reviewed: Yes - Physical Exam Appears: Positive for: No Acute Distress (Intoxicated) Head Exam: Positive for: ATRAUMATIC, NORMOCEPHALIC Skin: Positive for: Warm, Dry Eye Exam: Positive for: EOMI, PERRL ENT: Positive for: Other (dry mucus membranes) Neck: Positive for: Painless ROM, Supple Cardiovascular/Chest: Positive for: Regular Rate, Rhythm. Negative for: Murmur Respiratory: Positive for: Rhonchi (faint rhonchi bilaterally). Negative for: Accessory Muscle Use, Rales, Respiratory Distress Gastrointestinal/Abdominal: Positive for: Soft. Negative for: Tenderness Back: Positive for: Normal Inspection. Negative for: Decreased ROM Extremity: Negative for: Tenderness (calf ), Swelling (leg) Lymphatic: Negative for: Adenopathy Neurologic/Psych: Positive for: Other (Slow in answering questions; seems to fall asleep during history taking; slightly slurred speech). Negative for: Motor/Sensory Deficits - Laboratory Results Result Diagrams: 06/08/18 18:15 06/08/18 19:00 - ECG O2 Sat by Pulse Oximetry: 98 (RA) Pulse Ox Interpretation: Normal Medical Decision Making Medical Decision Making: Initial Impression: Pulmonary embolism; possible intoxication Initial Plan: --ECG --Alcohol serum stat --B-type natriuretic stat --CMP --Drug screen --Troponin --ED urine dipstick --CBC --Partial thromboplastin --Prothrombin time --Chest X-ray Scribe Attestation: Documented by Kamari Macdonald acting as a scribe for Zulema Ceballos MD. Provider Scribe Attestation: All medical record entries made by the Scribe were at my direction and personally dictated by me. I have reviewed the chart and agree that the record accurately reflects my personal performance of the history, physical exam, medical decision making, and the department course for this patient. I have also personally directed, reviewed, and agree with the discharge instructions and disposition. Disposition - Clinical Impression Clinical Impression: Pulmonary emboli Discussed With : Wu Mo Comment: Requests dose of Eliquis be given Doctor Will See Patient In The: Hospital - Disposition Disposition Time: 20:00 Condition: FAIR - Pt Status Changed To: Hospital Disposition Of: Observation - POA Present On Arrival: Deep Vein Thrombosis / PE
[2018-06-08 18:35] LABS: PARTIAL THROMBOPLASTIN TIME 31.3 Seconds (25.6-37.1)
[2018-06-08 19:09] LABS: BASO % 0.3 % (0.0-2.0); EOS % 0.2 % (0.0-4.0); HEMOGLOBIN 12.4 g/dL (12.0-18.0); LYMPH # 2.9 K/uL (1.0-4.3); LYMPH % 26.5 % (20.0-40.0); MEAN CELL VOLUME 96.2 fl (80.0-94.0); MEAN CORPUSCULAR HEMOGLOBIN 30.5 pg (27.0-31.0); MEAN CORPUSCULAR HGB CONC 31.7 g/dL (33.0-37.0); MEAN PLATELET VOLUME 7.4 fl (7.2-11.7); MONO # 1.1 K/uL (0.0-0.8); MONO % 9.9 % (0.0-10.0); NEUT % 63.1 % (50.0-75.0); NRBC % 0.1 % (0.0-0.0); RBC 4.06 Mil/uL (4.40-5.90); RED CELL DISTRIBUTION WIDTH 15.5 % (11.5-14.5); WHITE BLOOD COUNT 11.1 K/uL (4.8-10.8)
[2018-06-08 19:33] LABS: ALB/GLOB RATIO 1.1 (1.0-2.1); ALBUMIN 3.8 g/dL (3.5-5.0); ALT/SGPT 109 U/L (21-72); AST/SGOT 62 U/L (17-59); B-TYPE NATRIURETIC PEPTIDE 146 pg/ml (0-900); BLOOD UREA NITROGEN 28 mg/dl (9-20); CALCIUM 9.4 mg/dL (8.4-10.2); GFR NON-AFRICAN AMERICAN > 60
[2018-06-09 05:32] LABS: BASO % 0.3 % (0.0-2.0); EOS % 0.5 % (0.0-4.0); LYMPH # 2.7 K/uL (1.0-4.3); LYMPH % 33.2 % (20.0-40.0); MEAN CELL VOLUME 92.7 fl (80.0-94.0); MEAN CORPUSCULAR HEMOGLOBIN 30.7 pg (27.0-31.0); MEAN CORPUSCULAR HGB CONC 33.1 g/dL (33.0-37.0); MEAN PLATELET VOLUME 7.5 fl (7.2-11.7); MONO % 11.8 % (0.0-10.0); NEUT # 4.5 K/uL (1.8-7.0); NEUT % 54.2 % (50.0-75.0); RBC 3.9 Mil/uL (4.40-5.90); RED CELL DISTRIBUTION WIDTH 14.9 % (11.5-14.5); WHITE BLOOD COUNT 8.2 K/uL (4.8-10.8)
[2018-06-09 05:36] LABS: INR 1.5
[2018-06-09 05:38] LABS: ALB/GLOB RATIO 1.1 (1.0-2.1); ALBUMIN 3.7 g/dL (3.5-5.0); ALT/SGPT 115 U/L (21-72); AST/SGOT 76 U/L (17-59); BLOOD UREA NITROGEN 34 mg/dl (9-20); CALCIUM 9.1 mg/dL (8.4-10.2); GFR NON-AFRICAN AMERICAN > 60
--- NOTE | 2018-06-09 09:43 | CARD ---
APPROVED REPORT Date of service: 06/08/2018 EKG Measurement Heart [id number] <Conclusion> Normal sinus rhythm Normal ECG
--- NOTE | 2018-06-09 11:26 | US ---
Date of service: 06/09/2018 PROCEDURE: BILATERAL LOWER EXTREMITY VENOUS DOPPLERS HISTORY: PE COMPARISON: None available. TECHNIQUE: Grayscale and duplex Doppler ultrasound bilateral lower extremity major deep veins was performed including graded compression and augmentation. FINDINGS: There is good compressibility, augmentation, normal phasic venous blood flow and unremarkable morphology at the bilateral common and superficial femoral as well as popliteal veins with the bilateral posterior tibial veins widely patent and compressible as well. No ultrasound evidence to suggest deep venous thrombosis bilateral lower extremities. IMPRESSION: No ultrasound evidence to suggest deep venous thrombosis bilateral lower extremities.
[2018-06-09 12:34] VITALS: O2SAT 94
--- NOTE | 2018-06-09 15:08 | CP.PCM.HP ---
History of Present Illness - History of Present Illness History of Present Illness: 53 y/o M, PMHx: HTN Bronchial Asthma, Sexually transmitter disorder, Anxiety, Depression, with last admission on 06/05/18 to [facility], [place] due to Left side chest pain, Hx Heroine dependence, found with PE on CT. Pt present to ED [facility], [place] on 06/08/18, after signing out same date AMA in AM, c/o of generalized weakness , associated to confusion, Pt lethargic with drowsy appearance, disoriented to person and place. Denied consumption of Heroin on day of admission. Worsening symptoms: C/O of chest tightness, while in ED showing tachycardia on monitor. Aggravated factor: Standing/walking (on DOA). Pt denied: Fever, chills, n/v/d, abdominal pain, CP, syncope, SOB, cough. EKG: Normal sinus rhythm. Ext. U-S: No DVT. Present on Admission - Present on Admission Any Indicators Present on Admission: Yes History of DVT/PE: Yes Review of Systems - Constitutional Constitutional: Weakness - EENT Eyes: Other (negative) Ears: Other (negative) Nose/Mouth/Throat: Other (negative) - Cardiovascular Cardiovascular: Rapid Heart Rate - Respiratory Respiratory: Other (negative) - Gastrointestinal Gastrointestinal: Other (negative) - Genitourinary Genitourinary: Other (negative) - Musculoskeletal Musculoskeletal: Other (negative) - Integumentary Integumentary: Other (negative) - Neurological Neurological: Behavioral Changes, Confusion - Psychiatric Psychiatric: Anxiety, Confusion - Endocrine Endocrine: Other (negative) - Hematologic/Lymphatic Hematologic: Other (negative) Past Patient History - Infectious Disease Hx of Infectious Diseases: None - Past Medical History & Family History Past Medical History?: Yes Pertinent Family History: Unknown - Past Social History Smoking Status: Light Smoker < 10 Cigarettes Daily - CARDIAC Hx Cardiac Disorders: No Hx Hypertension: Yes - PULMONARY Hx Respiratory Disorders: Yes Hx Asthma: Yes Hx Pulmonary Embolism: Yes - NEUROLOGICAL Hx Neurological Disorder: No Hx Seizures: No - HEENT Hx HEENT Problems: No - RENAL Hx Chronic Kidney Disease: No - ENDOCRINE/METABOLIC Hx Endocrine Disorders: No - HEMATOLOGICAL/ONCOLOGICAL Hx Blood Disorders: No Hx Human Immunodeficiency Virus (HIV): No - INTEGUMENTARY Hx Dermatological Problems: Yes Hx Cellulitis: Yes - MUSCULOSKELETAL/RHEUMATOLOGICAL Hx Musculoskeletal Disorders: No Hx Falls: No - GASTROINTESTINAL Hx Gastrointestinal Disorders: No - GENITOURINARY/GYNECOLOGICAL Hx Genitourinary Disorders: Yes Hx Sexually Transmitted Disorders: Yes - PSYCHIATRIC Hx Psychophysiologic Disorder: Yes Hx Anxiety: Yes Hx Depression: Yes Hx Substance Use: No (Per Patient) - SURGICAL HISTORY Hx Surgeries: Yes Other/Comment: R arm cyst removal - ANESTHESIA Hx Anesthesia: Yes Hx Anesthesia Reactions: No Hx Malignant Hyperthermia: No Meds Home Medications: Home Medication List Medication Instructions Recorded Confirmed Type Apixaban [Eliquis] 10 mg PO BID tab 06/09/18 Rx Allergies/Adverse Reactions: Allergies Allergy/AdvReac Type Severity Reaction Status Date / Time No Known Allergies Allergy Verified 06/08/18 17:33 Physical Exam - Constitutional Appears: Agitated - Head Exam Head Exam: NORMAL INSPECTION - Eye Exam Eye Exam: PERRL - ENT Exam ENT Exam: Normal Exam - Neck Exam Neck exam: Positive for: Normal Inspection - Respiratory Exam Respiratory Exam: Clear to Auscultation Bilateral - Cardiovascular Exam Cardiovascular Exam: REGULAR RHYTHM - GI/Abdominal Exam GI & Abdominal Exam: Normal Bowel Sounds, Soft - Extremities Exam Extremities exam: Positive for: normal inspection - Back Exam Back exam: NORMAL INSPECTION - Neurological Exam Neurological exam: Alert, CN II-XII Intact Additional comments: No focal motor/sensory deficit, follows commands. - Psychiatric Exam Psychiatric exam: Anxious - Skin Skin Exam: Warm Results - Vital Signs Recent Vital Signs: Last Vital Signs Temp 98.1 F 06/09/18 12:32 Pulse 73 06/09/18 12:32 Resp 20 06/09/18 12:32 BP 100/55 L 06/09/18 12:32 Pulse Ox 94 L 06/09/18 12:32 reviewed Hugo - Labs Result Diagrams: 06/09/18 05:00 06/09/18 05:00 Labs: Laboratory Results - last 24 hr 06/08/18 06/08/18 06/08/18 18:15 18:15 19:00 WBC 11.1 H RBC 4.06 L Hgb 12.4 Hct 39.0 MCV 96.2 H D MCH 30.5 MCHC 31.7 L RDW 15.5 H Plt Count 211 MPV 7.4 Neut % (Auto) 63.1 Lymph % (Auto) 26.5 [place] % (Auto) 9.9 Eos % (Auto) 0.2 Baso % (Auto) 0.3 Neut # (Auto) 7.0 Lymph # (Auto) 2.9 [place] # (Auto) 1.1 H Eos # (Auto) 0.0 Baso # (Auto) 0.0 PT 14.1 H INR 1.2 APTT 31.3 Sodium 140 Potassium 4.9 Chloride 107 Carbon Dioxide 23 Anion Gap 15 BUN 28 H Creatinine 1.1 Est GFR ( Amer) > 60 Est GFR (Non-Af Amer) > 60 Random Glucose 93 Calcium 9.4 Total Bilirubin 0.6 AST 62 H D ALT 109 H Alkaline Phosphatase 63 Troponin I 0.0160 NT-Pro-B Natriuret Pep 146 Total Protein 7.3 Albumin 3.8 Globulin 3.5 Albumin/Globulin Ratio 1.1 Alcohol, Quantitative < 10 06/09/18 06/09/18 06/09/18 05:00 05:00 05:00 WBC 8.2 RBC 3.90 L Hgb 12.0 Hct 36.2 MCV 92.7 D MCH 30.7 MCHC 33.1 RDW 14.9 H Plt Count 178 MPV 7.5 Neut % (Auto) 54.2 Lymph % (Auto) 33.2 [place] % (Auto) 11.8 H Eos % (Auto) 0.5 Baso % (Auto) 0.3 Neut # (Auto) 4.5 Lymph # (Auto) 2.7 [place] # (Auto) 1.0 H Eos # (Auto) 0.0 Baso # (Auto) 0.0 PT 17.0 H INR 1.5 APTT Sodium 139 Potassium 4.6 Chloride 107 Carbon Dioxide 24 Anion Gap 13 BUN 34 H Creatinine 1.0 Est GFR ( Amer) > 60 Est GFR (Non-Af Amer) > 60 Random Glucose 93 Calcium 9.1 Total Bilirubin 0.6 AST 76 H D ALT 115 H Alkaline Phosphatase 62 Troponin I NT-Pro-B Natriuret Pep Total Protein 7.2 Albumin 3.7 Globulin 3.5 Albumin/Globulin Ratio 1.1 Alcohol, Quantitative reviewed J.P. - EKG Data EKG comments: reviewed J.P. - Imaging and Cardiology Venous US Status: Report reviewed by me (J.P.) Assessment & Plan (1) Pulmonary emboli Status: Acute Priority: High (2) Drug dependency Status: Chronic Priority: High (3) Anxiety Status: Chronic Priority: High - Assessment and Plan (Free Text) Plan: Continue Lorazepan, Eliquis., discharge planning. - Date & Time Date: 06/09/18 Time: 12:00
[2018-06-09 15:54] VITALS: BP 103/68; PULSE 78; RESP 18; TEMP 99
[2018-06-09 20:21] LABS: BARBITURATES, UR NEGATIVE (NEGATIVE); BENZODIAZEPINES, UR NEGATIVE (NEGATIVE); OPIATES, UR POSITIVE (NEGATIVE); PHENCYCLIDINE, UR NEGATIVE (NEGATIVE)
--- NOTE | 2018-06-10 09:21 | CP.PCM.DIS ---
Provider - Provider Date of Admission: 06/08/18 19:49 Attending physician: Wu Mo MD Diagnosis - Discharge Diagnosis (1) Pulmonary emboli Status: Acute Priority: High (2) Drug dependency Status: Chronic Priority: High (3) Anxiety Status: Chronic Priority: High Hospital Course - Lab Results Lab Results: Most Recent Lab Values WBC 8.2 K/uL (4.8-10.8) 06/09/18 05:00 RBC 3.90 Mil/uL (4.40-5.90) L 06/09/18 05:00 Hgb 12.0 g/dL (12.0-18.0) 06/09/18 05:00 Hct 36.2 % (35.0-51.0) 06/09/18 05:00 MCV 92.7 fl (80.0-94.0) D 06/09/18 05:00 MCH 30.7 pg (27.0-31.0) 06/09/18 05:00 MCHC 33.1 g/dL (33.0-37.0) 06/09/18 05:00 RDW 14.9 % (11.5-14.5) H 06/09/18 05:00 Plt Count 178 K/uL (130-400) 06/09/18 05:00 MPV 7.5 fl (7.2-11.7) 06/09/18 05:00 Neut % (Auto) 54.2 % (50.0-75.0) 06/09/18 05:00 Lymph % (Auto) 33.2 % (20.0-40.0) 06/09/18 05:00 [place] % (Auto) 11.8 % (0.0-10.0) H 06/09/18 05:00 Eos % (Auto) 0.5 % (0.0-4.0) 06/09/18 05:00 Baso % (Auto) 0.3 % (0.0-2.0) 06/09/18 05:00 Neut # (Auto) 4.5 K/uL (1.8-7.0) 06/09/18 05:00 Lymph # (Auto) 2.7 K/uL (1.0-4.3) 06/09/18 05:00 [place] # (Auto) 1.0 K/uL (0.0-0.8) H 06/09/18 05:00 Eos # (Auto) 0.0 K/uL (0.0-0.7) 06/09/18 05:00 Baso # (Auto) 0.0 K/uL (0.0-0.2) 06/09/18 05:00 PT 17.0 Seconds (9.8-13.1) H 06/09/18 05:00 INR 1.5 06/09/18 05:00 APTT 31.3 Seconds (25.6-37.1) 06/08/18 18:15 Sodium 139 mmol/l (132-148) 06/09/18 05:00 Potassium 4.6 MMOL/L (3.6-5.0) 06/09/18 05:00 Chloride 107 mmol/L (98-107) 06/09/18 05:00 Carbon Dioxide 24 mmol/L (22-30) 06/09/18 05:00 Anion Gap 13 (10-20) 06/09/18 05:00 BUN 34 mg/dl (9-20) H 06/09/18 05:00 Creatinine 1.0 mg/dl (0.8-1.5) 06/09/18 05:00 Est GFR ( Amer) > 60 06/09/18 05:00 Est GFR (Non-Af Amer) > 60 06/09/18 05:00 Random Glucose 93 mg/dL (75-110) 06/09/18 05:00 Calcium 9.1 mg/dL (8.4-10.2) 06/09/18 05:00 Total Bilirubin 0.6 mg/dl (0.2-1.3) 06/09/18 05:00 AST 76 U/L (17-59) H D 06/09/18 05:00 ALT 115 U/L (21-72) H 06/09/18 05:00 Alkaline Phosphatase 62 U/L (38-126) 06/09/18 05:00 Troponin I 0.0160 ng/mL (0.00-0.120) 06/08/18 19:00 NT-Pro-B Natriuret Pep 146 pg/ml (0-900) 06/08/18 19:00 Total Protein 7.2 G/DL (6.3-8.2) 06/09/18 05:00 Albumin 3.7 g/dL (3.5-5.0) 06/09/18 05:00 Globulin 3.5 gm/dL (2.2-3.9) 06/09/18 05:00 Albumin/Globulin Ratio 1.1 (1.0-2.1) 06/09/18 05:00 Urine Opiates Screen Positive (NEGATIVE) H 06/09/18 19:55 Urine Methadone Screen Negative (NEGATIVE) 06/09/18 19:55 Ur Barbiturates Screen Negative (NEGATIVE) 06/09/18 19:55 Ur Phencyclidine Scrn Negative (NEGATIVE) 06/09/18 19:55 Ur Amphetamines Screen Negative (NEGATIVE) 06/09/18 19:55 U Benzodiazepines Scrn Negative (NEGATIVE) 06/09/18 19:55 U Oth Cocaine Metabols Positive (NEGATIVE) H 06/09/18 19:55 U Cannabinoids Screen Negative (NEGATIVE) 06/09/18 19:55 Alcohol, Quantitative < 10 mg/dl (0-10) 06/08/18 19:00 Discharge Exam - Head Exam Head Exam: NORMAL INSPECTION Discharge Plan - Follow Up Plan Condition: FAIR Disposition: HOME/ ROUTINE Instructions: Pulmonary Embolism (Blood Clot in the Lungs) (DC) Additional Instructions: follow up with pmd in 1 week Referrals: Wu Mo MD [Staff Provider] -
== END 2018-06-09 18:30 | disposition home or self-care (01) ==
LOC: H.ER 17:05 → H.ERHOLD 19:49 → H.TEL 23:05
PROVIDERS: ADMIT Internal Medicine Pulmonary Disease; ATTEND Internal Medicine Pulmonary Disease
DX: I26.99 Other pulmonary embolism without acute cor pulmonale (principal); F11.20 Opioid dependence, uncomplicated; J45.909 Unspecified asthma, uncomplicated; I10 Essential (primary) hypertension; F41.9 Anxiety disorder, unspecified; F17.210 Nicotine dependence, cigarettes, uncomplicated; Z86.711 Personal history of pulmonary embolism; Z86.19 Personal history of other infectious and parasitic diseases; Z79.01 Long term (current) use of anticoagulants
CPT/HCPCS: 36415; 80053; 80320; 80324; 80345; 80346; 80349; 80353; 80358; 80361; 83880; 83992; 84484; 85025; 85610; 85730; 93005; 93970; 99283; G0378

== ENCOUNTER 2018-06-10 22:37 | Emergency (ER) | payer OTHER ==
[2018-06-10 22:37] VITALS: BMI 24.7
[2018-06-10 23:27] LABS: BASO % 0.4 % (0.0-2.0); EOS # 0.2 K/uL (0.0-0.7); EOS % 3.2 % (0.0-4.0); HEMOGLOBIN 11.5 g/dL (12.0-18.0); LYMPH # 2.3 K/uL (1.0-4.3); LYMPH % 35.3 % (20.0-40.0); MEAN CELL VOLUME 92.5 fl (80.0-94.0); MEAN CORPUSCULAR HEMOGLOBIN 30.7 pg (27.0-31.0); MEAN CORPUSCULAR HGB CONC 33.2 g/dL (33.0-37.0); MEAN PLATELET VOLUME 7.5 fl (7.2-11.7); MONO # 0.7 K/uL (0.0-0.8); MONO % 11.4 % (0.0-10.0); NEUT # 3.2 K/uL (1.8-7.0); NEUT % 49.7 % (50.0-75.0); RBC 3.75 Mil/uL (4.40-5.90); RED CELL DISTRIBUTION WIDTH 14.5 % (11.5-14.5); WHITE BLOOD COUNT 6.4 K/uL (4.8-10.8)
[2018-06-10 23:32] LABS: INR 1.5; PROTHROMBIN TIME 16.5 Seconds (9.8-13.1)
[2018-06-10 23:34] LABS: PARTIAL THROMBOPLASTIN TIME 35.8 Seconds (25.6-37.1)
--- NOTE | 2018-06-10 23:38 | ED PDOC ---
HPI: Chest Pain Time Seen by Provider: 06/10/18 22:50 Chief Complaint (Nursing): Chest Pain History Per: Patient Onset/Duration Of Symptoms: Hrs Current Symptoms Are (Timing): Still Present Quality: Aching Additional Complaint(s): Hx of IVDU (heroin abuse), Hep C, asthma, and PE's presenting with chest pain. States he was started on plavix 3 days ago and has been taking medications. Today he injected 6 bags of heroin intravenously and stated he got worsening of chest pain. Denies shortness of breath, fevers, cough, chills. Was discharged yesterday from hospital. Past Medical History Reviewed: Historical Data, Nursing Documentation, Vital Signs Vital Signs: Last Vital Signs Temp 99.2 F 06/10/18 22:41 Pulse 81 06/10/18 22:41 Resp 20 06/10/18 22:41 BP 118/63 06/10/18 22:41 Pulse Ox 99 06/10/18 22:41 - Medical History PMH: Anxiety, Asthma, Depression, Hepatitis (Hep C), HTN, Pulmonary Embolism, Sexually Transmitted Disease Denies: Diabetes, HIV, Chronic Kidney Disease, Seizures - Family History Family History: States: Unknown Family Hx - Immunization History Hx Tetanus Toxoid Vaccination: Yes Hx Influenza Vaccination: No Hx Pneumococcal Vaccination: No - Home Medications Home Medications: Ambulatory Orders Medication Instructions Recorded Apixaban [Eliquis] 10 mg PO BID tab 06/09/18 Naloxone HCl [Narcan] 4 mg NS PRN PRN #1 spray 06/11/18 - Allergies Allergies/Adverse Reactions: Allergies Allergy/AdvReac Type Severity Reaction Status Date / Time No Known Allergies Allergy Verified 06/10/18 22:43 Review of Systems ROS Statement: Except As Marked, All Systems Reviewed And Found Negative Cardiovascular: Positive for: Chest Pain Physical Exam - Reviewed Nursing Documentation Reviewed: Yes Vital Signs Reviewed: Yes - Physical Exam Appears: Positive for: Well, Non-toxic, No Acute Distress Head Exam: Positive for: ATRAUMATIC, NORMAL INSPECTION, NORMOCEPHALIC Skin: Positive for: Normal Color, Warm, DRY Eye Exam: Positive for: EOMI, Normal appearance, PERRL ENT: Positive for: Normal ENT Inspection Neck: Positive for: Normal, Painless ROM Cardiovascular/Chest: Positive for: Regular Rate, Rhythm Respiratory: Positive for: CNT, Normal Breath Sounds Gastrointestinal/Abdominal: Positive for: Normal Exam, Soft Back: Positive for: Normal Inspection Extremity: Positive for: Normal ROM Neurologic/Psych: Positive for: Alert, 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 Negative for: Motor/Sensory Deficits - Laboratory Results Result Diagrams: 06/10/18 23:15 06/10/18 23:15 - ECG ECG Rhythm: Positive for: Normal QRS, Normal ST Segment, Sinus Rhythm O2 Sat by Pulse Oximetry: 99 Medical Decision Making Medical Decision MakinPM Patient presenting with chest pain and IV drug use --Patient well appearing, no repsiratory distress --Patient has already initiated treatment for PE --Will check CT to evaluate for worsening clot burden --Pending 2 trops to r/o cardiac involvement Time: 02:32 CT Angio Chest FINDINGS: Mild decrease in bilateral basilar subsegmental atelectatic airspace disease of the lower lobes. Mild increase in bilateral basilar groundglass densities in the lower lobes. Normal enhancement of the main pulmonary artery and right and left pulmonary ar teries. Normal enhancement of the bilateral peripheral pulmonary arteries. There is no demonstrated pulmonary embolism. Normal thoracic aorta and visualized great vessels. There is no demonstrated aortic dissection. Normal heart and pericardium. Normal mediastinum. Normal hilar regions. Normal visualized trachea and bronchi. The remaining lungs are well expanded. Normal remaining pulmonary parenchyma. Normal pleura. Normal chest wall structures. Normal osseous structures. Normal visualized upper abdomen. IMPRESSION: No demonstrated pulmonary embolism or arterial dissection. Mild increase in bilateral lower lobes ground glass densities of the lungs. Probably infectious/inflammatory pathology. 5AM --Workup negative --Patient ambulating around ER without difficulty searching for food --Advised patient to abstain from drug abuse --Strongly advised followup with PMD --Detox referrals provided Scribe Attestation: Documented by Carrington Holcomb acting as a scribe for Guanakito Prince MD. Provider Scribe Attestation: All medical record entries made by the Scribe were at my direction and personally dictated by me. I have reviewed the chart and agree that the record accurately reflects my personal performance of the history, physical exam, medical decision making, and the department course for this patient. I have also personally directed, reviewed, and agree with the discharge instructions and disposition. Disposition - Clinical Impression Clinical Impression: Atypical chest pain - Patient ED Disposition Is Patient to be Admitted: No - Disposition Referrals: Wu Mo MD [Staff Provider] - Disposition: Routine/Home Disposition Time: 05:05 Condition: IMPROVED Prescriptions: Naloxone HCl [Narcan] 4 mg NS PRN PRN #1 spray PRN Reason: Overdose Instructions: Chest Pain That Is Not Caused by the Heart (DC), Drug Abuse and Drug Addiction (DC) Forms: [employer] (Latvian)
[2018-06-11 00:05] LABS: BLOOD UREA NITROGEN 18 mg/dl (9-20); GFR NON-AFRICAN AMERICAN > 60
[2018-06-11] MEDS ORDERED: Iodixanol 320 MG/ML 100 ML BOTTLE IV ONE (01:18)
[2018-06-11] MEDS ORDERED: Sodium Chloride 0.9% 50 ML IV ONE (01:19)
[2018-06-11 03:56] LABS: BARBITURATES, UR NEGATIVE (NEGATIVE); BENZODIAZEPINES, UR NEGATIVE (NEGATIVE); OPIATES, UR POSITIVE (NEGATIVE); PHENCYCLIDINE, UR NEGATIVE (NEGATIVE)
[2018-06-11 05:25] VITALS: BP 94/59; PULSE 71; RESP 17; TEMP 98.1; O2SAT 98
--- NOTE | 2018-06-11 09:48 | RAD ---
Date of service: 06/10/2018 PROCEDURE: CHEST RADIOGRAPH, 1 VIEW HISTORY: chest pain COMPARISON: 05/11/2018 FINDINGS: LUNGS: Clear. PLEURA: No pneumothorax or pleural fluid seen. CARDIOVASCULAR: Normal. OSSEOUS STRUCTURES: No significant abnormalities. VISUALIZED UPPER ABDOMEN: Normal. OTHER FINDINGS: None. IMPRESSION: No active disease.
--- NOTE | 2018-06-11 11:24 | CARD ---
APPROVED REPORT Date of service: 06/10/2018 EKG Measurement Heart [id number] 130P33 [id number] <Conclusion> Normal sinus rhythm Minimal voltage criteria for LVH, may be normal variant Borderline ECG
--- NOTE | 2018-06-11 14:01 | CT ---
Date of service: 06/11/2018 PROCEDURE: CT Chest with contrast (Pulmonary Angiogram) HISTORY: hx of PE, IVDU, chest pain COMPARISON: None available. TECHNIQUE: Axial computed tomography images were obtained of the chest in the pulmonary arterial phase of enhancement. Coronal and sagittal reformatted images were created and reviewed. Intravenous contrast dose: 67 cc Visipaque 320. Mean Hounsfield value in the main pulmonary artery: 238.19 Radiation dose: Total exam DLP = 241.48. mGy-cm. This CT exam was performed using one or more of the following dose reduction techniques: Automated exposure control, adjustment of the mA and/or kV according to patient size, and/or use of iterative reconstruction technique. FINDINGS: PULMONARY ARTERIES: Unremarkable. No pulmonary embolism. AORTA: No acute findings. No thoracic aortic aneurysm. No atherosclerotic calcification or mural plaque present. LUNGS: Faint multifocal peripheral infiltrates bilaterally. 3 mm calcified granuloma superior segment right lower lobe. PLEURAL SPACES: Unremarkable. No effusion or pneumothorax. HEART: Unremarkable. No cardiomegaly. No significant pericardial effusion. LYMPH NODES: No lymphadenopathy. BONES, CHEST WALL: Unremarkable. No fracture or destructive lesion OTHER FINDINGS: Unremarkable. IMPRESSION: Unremarkable CT pulmonary angiogram. No pulmonary embolus. Additional benign and/or incidental findings described above. Concordant results (preliminary interpretation) provided by [employer]. Procedure Completed: 01:44. Preliminary Report: Dictated and Authenticated: 02:32. Final Interpretation: 13:57.
== END 2018-06-11 07:11 | disposition home or self-care (01) ==
LOC: H.ER 22:37
DX: R07.9 Chest pain, unspecified (principal); Z86.59 Personal history of other mental and behavioral disorders; B19.20 Unspecified viral hepatitis C without hepatic coma; I10 Essential (primary) hypertension; J45.909 Unspecified asthma, uncomplicated; Z79.01 Long term (current) use of anticoagulants; Z86.711 Personal history of pulmonary embolism; Z79.02 Long term (current) use of antithrombotics/antiplatelets
CPT/HCPCS: 71045; 71275; 80048; 80320; 80324; 80345; 80346; 80349; 80353; 80358; 80361; 83992; 84484; 85025; 85378; 85610; 85730; 93005; 99283; Q9967

== ENCOUNTER 2018-06-18 23:03 | Emergency (ER) | payer OTHER ==
[2018-06-18 23:04] VITALS: BMI 24.7
[2018-06-18 23:27] VITALS: RESP 16; TEMP 98
--- NOTE | 2018-06-19 00:28 | ED PDOC ---
HPI: Psych/Substance Abuse Time Seen by Provider: 06/18/18 23:31 Chief Complaint (Nursing): Psychiatric Evaluation Chief Complaint (Provider): Psychiatric Evaluation History Per: Patient History/Exam Limitations: no limitations Associated Symptoms: denies: Suicidal Thoughts, Suicidal Plan Additional Complaint(s): 53 years old male sent for medical clearance by a clinic in [facility] after having a detox today. Patient offers no medical complaints at this time. He reports he is on blood thinners for clots in lungs. Patient states his PMD is Dr. Mo but has not seen him yet and does not have an appointment with him. He denies any allergies, SI/HI. PMD: Wu Mo Past Medical History Reviewed: Historical Data, Nursing Documentation, Vital Signs Vital Signs: Last Vital Signs Temp 98.0 F 06/18/18 23:21 Pulse 66 06/18/18 23:21 Resp 16 06/18/18 23:21 BP 113/73 06/18/18 23:21 Pulse Ox 99 06/18/18 23:21 - Medical History PMH: Anxiety, Asthma, Depression, Hepatitis (Hep C), HTN, Pulmonary Embolism, Sexually Transmitted Disease Denies: Diabetes, HIV, Chronic Kidney Disease, Seizures Other PMH: Clots in lungs - Surgical History Surgical History: No Surg Hx - Family History Family History: States: Unknown Family Hx - Social History Current smoker - smoking cessation education provided: Yes (8-10 cigarettes/day) Alcohol: None Drugs: Other (Heroin) - Immunization History Hx Tetanus Toxoid Vaccination: Yes Hx Influenza Vaccination: No Hx Pneumococcal Vaccination: No - Home Medications Home Medications: Ambulatory Orders Medication Instructions Recorded Apixaban [Eliquis] 10 mg PO BID tab 06/09/18 Naloxone HCl [Narcan] 4 mg NS PRN PRN #1 spray 06/11/18 - Allergies Allergies/Adverse Reactions: Allergies Allergy/AdvReac Type Severity Reaction Status Date / Time No Known Allergies Allergy Verified 06/18/18 23:21 Review of Systems ROS Statement: Except As Marked, All Systems Reviewed And Found Negative Psych: Negative for: Suicidal ideation (or homicidal) Physical Exam - Reviewed Nursing Documentation Reviewed: Yes Vital Signs Reviewed: Yes - Physical Exam Appears: Positive for: Non-toxic, No Acute Distress Head Exam: Positive for: ATRAUMATIC, NORMAL INSPECTION, NORMOCEPHALIC Skin: Positive for: Normal Color, Warm, Dry Cardiovascular/Chest: Positive for: Regular Rate, Rhythm. Negative for: Murmur Respiratory: Positive for: Normal Breath Sounds. Negative for: Wheezing Gastrointestinal/Abdominal: Positive for: Normal Exam, Soft. Negative for: Tenderness Neurologic/Psych: Positive for: Alert, Oriented (x3) - Laboratory Results Result Diagrams: 06/19/18 04:31 06/19/18 04:31 - ECG O2 Sat by Pulse Oximetry: 99 (RA) Pulse Ox Interpretation: Normal Medical Decision Making Medical Decision Making: Time: 001 Initial plan: --Crisis evaluation 0309 Per crisis, patient needs to be medically cleared for admission for detox in an other facility. Order: --EKG --Acetaminophen --Alcohol serum --CMP --Salicylate --CBC --Urinalysis [address] Gaxiola, pending crisis evaluation for detox. Scribe Attestation: Documented by Nolvia Leyva, acting as a scribe for Jesús Marino MD. Provider Scribe Attestation: All medical record entries made by the Scribe were at my direction and personally dictated by me. I have reviewed the chart and agree that the record accurately reflects my personal performance of the history, physical exam, medical decision making, and the department course for this patient. I have also personally directed, reviewed, and agree with the discharge instructions and disposition. Disposition - Patient ED Disposition Is Patient to be Admitted: No - Disposition Disposition: Routine/Home Disposition Time: 03:09 Condition: STABLE Forms: [employer] Connect (Ukrainian)
[2018-06-19 04:43] LABS: BASO % 0.5 % (0.0-2.0); EOS # 0.2 K/uL (0.0-0.7); EOS % 2.9 % (0.0-4.0); HEMOGLOBIN 11.5 g/dL (12.0-18.0); LYMPH # 1.8 K/uL (1.0-4.3); LYMPH % 27.5 % (20.0-40.0); MEAN CORPUSCULAR HGB CONC 33.3 g/dL (33.0-37.0); MEAN PLATELET VOLUME 8.1 fl (7.2-11.7); MONO # 0.6 K/uL (0.0-0.8); MONO % 8.9 % (0.0-10.0); NEUT % 60.2 % (50.0-75.0); RBC 3.72 Mil/uL (4.40-5.90); RED CELL DISTRIBUTION WIDTH 14.6 % (11.5-14.5); WHITE BLOOD COUNT 6.6 K/uL (4.8-10.8)
[2018-06-19 04:46] LABS: URINE BILIRUBIN NEGATIVE (NEGATIVE); URINE BLOOD NEGATIVE (NEGATIVE); URINE CLARITY CLEAR (Clear); URINE COLOR YELLOW (YELLOW); URINE GLUCOSE (UA) NEG (Normal); URINE LEUKOCYTE ESTERASE NEG Leu/uL (Negative); URINE PROTEIN NEGATIVE (NEGATIVE); URINE UROBILINOGEN 0.2-1.0 mg/dL (0.2-1.0)
[2018-06-19 04:53] LABS: ACETAMINOPHEN < 10.0 ug/ml (10.0-30.0); SALICYLATE < 1.0 mg/dl
[2018-06-19 05:09] LABS: ALBUMIN 3.4 g/dL (3.5-5.0); ALT/SGPT 156 U/L (21-72); AST/SGOT 102 U/L (17-59); BARBITURATES, UR NEGATIVE (NEGATIVE); BENZODIAZEPINES, UR NEGATIVE (NEGATIVE); BLOOD UREA NITROGEN 12 mg/dl (9-20); CALCIUM 8.8 mg/dL (8.4-10.2); GFR NON-AFRICAN AMERICAN > 60; OPIATES, UR POSITIVE (NEGATIVE); PHENCYCLIDINE, UR NEGATIVE (NEGATIVE)
--- NOTE | 2018-06-19 07:30 | ED PDOC ---
- Laboratory Results Result Diagrams: 06/19/18 04:31 06/19/18 04:31 - ECG O2 Sat by Pulse Oximetry: 99 (RA) Medical Decision Making Medical Decision Makin: Case endorsed to me by Dr. Marino pending crisis evaluation. 07: Patient is psychiatrically cleared by Dr. Catalan, psychiatrist, at this time with a diagnosis of heroin abuse. Per Dr. Catalan, there are currently no beds available for detox at this time and the patient is stable for discharge. ------- Scribe Attestation: Documented by Helio Lloyd, acting as a scribe for Magdiel Gaxiola MD. Provider Scribe Attestation: All medical record entries made by the Scribe were at my direction and personally dictated by me. I have reviewed the chart and agree that the record accurately reflects my personal performance of the history, physical exam, medical decision making, and the department course for this patient. I have also personally directed, reviewed, and agree with the discharge instructions and disposition. Disposition Counseled Patient/Family Regarding: Studies Performed, Diagnosis, Need For Followup - Clinical Impression Clinical Impression: Narcotic abuse, Opioid use disorder, severe, dependence - POA Present On Arrival: None - Disposition Referrals: [facility] [Outside] Disposition: Routine/Home Disposition Time: 07:31 Condition: GOOD Additional Instructions: PROSPER ALVA, thank you for letting us take care of you today. Your provider was Magdiel Gaxiola MD and you were treated for PSYCH EVAL. The emergency medical care you received today was directed at your acute symptoms. If you were prescribed any medication, please fill it and take as directed. It may take several days for your symptoms to resolve. Return to the Emergency Department if your symptoms worsen, do not improve, or if you have any other problems. Please contact your doctor or call one of the physicians/clinics you have been referred to that are listed on the Patient Visit Information form that is includ ed in your discharge packet. Bring any paperwork you were given at discharge with you along with any medications you are taking to your follow up visit. Our treatment cannot replace ongoing medical care by a primary care provider outside of the emergency department. Thank you for allowing the [facility] team to be part of your care today. If you had an X-Ray or CT scan: A Radiologist will review the ED reading if any change in treatment is needed we will contact you. If you had a blood, urine, or wound culture: It will take several days for the results, if any change in treatment is needed we will contact you. If you had an STI test: It will take 48 hours for the results. Please call after 1 week if you have not heard back. Instructions: Opioid Use Disorder
[2018-06-19 07:43] VITALS: BP 110/70; PULSE 62
--- NOTE | 2018-06-19 08:36 | CARD ---
APPROVED REPORT Date of service: 06/19/2018 EKG Measurement Heart [id number] <Conclusion> Normal sinus rhythm Normal ECG
[2018-06-20 07:11] VITALS: O2SAT 99
== END 2018-06-19 07:46 | disposition home or self-care (01) ==
LOC: H.ER 23:03
DX: F11.20 Opioid dependence, uncomplicated (principal); B19.20 Unspecified viral hepatitis C without hepatic coma; F17.210 Nicotine dependence, cigarettes, uncomplicated; I10 Essential (primary) hypertension; Z79.01 Long term (current) use of anticoagulants; Z86.711 Personal history of pulmonary embolism; F41.9 Anxiety disorder, unspecified

== ENCOUNTER 2018-06-29 17:56 | Emergency (ER) | payer MEDICAID, OTHER ==
[2018-06-29 17:57] VITALS: BMI 24.7
[2018-06-29 18:47] VITALS: BP 114/66; PULSE 68; RESP 16; TEMP 98.3; O2SAT 98
[2018-06-29 20:15] LABS: BASO % 0.3 % (0.0-2.0); EOS # 0.1 K/uL (0.0-0.7); EOS % 1.8 % (0.0-4.0); HEMOGLOBIN 11.9 g/dL (12.0-18.0); LYMPH % 25.9 % (20.0-40.0); MEAN CORPUSCULAR HEMOGLOBIN 30.6 pg (27.0-31.0); MEAN CORPUSCULAR HGB CONC 32.5 g/dL (33.0-37.0); MEAN PLATELET VOLUME 7.7 fl (7.2-11.7); MONO # 0.5 K/uL (0.0-0.8); MONO % 6.9 % (0.0-10.0); NEUT # 5.1 K/uL (1.8-7.0); NEUT % 65.1 % (50.0-75.0); RBC 3.9 Mil/uL (4.40-5.90); RED CELL DISTRIBUTION WIDTH 15.4 % (11.5-14.5); WHITE BLOOD COUNT 7.8 K/uL (4.8-10.8)
[2018-06-29 20:31] LABS: ALBUMIN 3.7 g/dL (3.5-5.0); ALT/SGPT 197 U/L (21-72); AST/SGOT 115 U/L (17-59); BLOOD UREA NITROGEN 12 mg/dl (9-20); CALCIUM 8.8 mg/dL (8.4-10.2); GFR NON-AFRICAN AMERICAN > 60
--- NOTE | 2018-06-29 20:38 | ED PDOC ---
HPI: Psych/Substance Abuse Time Seen by Provider: 06/29/18 19:34 Chief Complaint (Nursing): Anxiety Chief Complaint (Provider): Anxiety History Per: Patient History/Exam Limitations: no limitations Additional Complaint(s): 53yo male, history of anxiety, comes to ER reporting he has been increasingly anxious over the past week and has associated shortness of breath, and feels as if "something will happen." Patient states in the past when experiencing such symptoms it was relieved with use of Ativan. Patient also states 3 weeks ago, he was diagnosed with PE and was started on blood thinners which were shortly stopped. Patient then presented at [facility], and had a CT Angio Chest, which was negative for a PE. Patient states he has had intermittent shortness of breath, but is unsure if that is due to anxiety or the PE. He denies any suicidal or homicidal ideation; he also denies any hallucinations, alcohol or drug usage. Patient otherwise has no additional medical complaints. PMD: None Past Medical History Reviewed: Historical Data, Nursing Documentation, Vital Signs Vital Signs: Last Vital Signs Temp 98.3 F 06/29/18 18:46 Pulse 68 06/29/18 18:46 Resp 16 06/29/18 18:46 BP 114/66 06/29/18 18:46 Pulse Ox 98 06/29/18 18:46 - Medical History PMH: Anxiety, Asthma, Depression, Hepatitis (Hep C), HTN, Pulmonary Embolism, Sexually Transmitted Disease Denies: Diabetes, HIV, Chronic Kidney Disease, Seizures - Surgical History Surgical History: No Surg Hx - Family History Family History: States: No Known Family Hx - Social History Current smoker - smoking cessation education provided: No Alcohol: None Drugs: Denies - Immunization History Hx Tetanus Toxoid Vaccination: Yes Hx Influenza Vaccination: No Hx Pneumococcal Vaccination: No - Home Medications Home Medications: Ambulatory Orders Medication Instructions Recorded Rivaroxaban [Xarelto] 10 mg PO DAILY 06/19/18 - Allergies Allergies/Adverse Reactions: Allergies Allergy/AdvReac Type Severity Reaction Status Date / Time No Known Allergies Allergy Verified 06/19/18 20:48 Review of Systems ROS Statement: Except As Marked, All Systems Reviewed And Found Negative (as per HPI) Respiratory: Positive for: Shortness of Breath Psych: Positive for: Anxiety. Negative for: Suicidal ideation Physical Exam - Reviewed Nursing Documentation Reviewed: Yes Vital Signs Reviewed: Yes - Physical Exam Appears: Positive for: Non-toxic, No Acute Distress Head Exam: Positive for: ATRAUMATIC, NORMAL INSPECTION, NORMOCEPHALIC Skin: Positive for: Normal Color Eye Exam: Positive for: Normal appearance, EOMI, PERRL Neck: Positive for: Supple Cardiovascular/Chest: Positive for: Regular Rate, Rhythm Respiratory: Positive for: Normal Breath Sounds. Negative for: Decreased Breath Sounds, Accessory Muscle Use, Rales, Rhonchi, Wheezing, Respiratory Distress Gastrointestinal/Abdominal: Positive for: Normal Exam, Soft Back: Positive for: Normal Inspection Extremity: Positive for: Normal ROM. Negative for: Pedal Edema Neurologic/Psych: Positive for: Alert, Oriented, Mood/Affect (anxious mood; normal affect). Negative for: Motor/Sensory Deficits - Laboratory Results Result Diagrams: 06/29/18 20:06 06/29/18 20:06 - ECG O2 Sat by Pulse Oximetry: 98 (RA) Pulse Ox Interpretation: Normal Medical Decision Making Medical Decision Making: Impression: Shortness of breath, anxiety Prior charts reviewed, patient has had 2 CT Angio Chest in the past month in this facility, which were both negative for a PE. Plan: * EKG * Chest x-ray * U-Dip * Crisis evaluation 2133 Patient seen and evaluated by crisis team; per Dr. Reynoso, patient to be discharged home. Patient given referral to [facility] crisis center. Scribe Attestation: Documented by Becki Coello, acting as a scribe for Zulema Ceballos MD. Provider Scribe Attestation: All medical record entries made by the Scribe were at my direction and personally dictated by me. I have reviewed the chart and agree that the record accurately reflects my personal performance of the history, physical exam, medical decision making, and the department course for this patient. I have also personally directed, reviewed, and agree with the discharge instructions and disposition. Disposition - Clinical Impression Clinical Impression: Anxiety Counseled Patient/Family Regarding: Studies Performed, Diagnosis, Need For Followup - Disposition Referrals: [facility] [Outside] Disposition: Routine/Home Disposition Time: 21:30 Condition: STABLE Additional Instructions: FOLLOW UP WITH [facility] [employer]. FOLLOW UP WITH CLINIC FOR FURTHER MANAGEMENT OF ANY MEDICAL CONDITIONS Instructions: Anxiety, Adult (DC)
[2018-06-29 20:41] LABS: BARBITURATES, UR NEGATIVE (NEGATIVE); BENZODIAZEPINES, UR NEGATIVE (NEGATIVE); OPIATES, UR POSITIVE (NEGATIVE); PHENCYCLIDINE, UR NEGATIVE (NEGATIVE)
--- NOTE | 2018-06-30 12:19 | RAD ---
Date of service: 06/29/2018 HISTORY: Shortness of breath. COMPARISON: 06/10/2018. TECHNIQUE: Chest PA and lateral FINDINGS: LUNGS: No active pulmonary disease. PLEURA: No significant pleural effusion identified. No pneumothorax apparent. CARDIOVASCULAR: No aortic atherosclerotic calcification present. Normal cardiac size. No pulmonary vascular congestion. OSSEOUS STRUCTURES: No significant abnormalities. VISUALIZED UPPER ABDOMEN: Normal. OTHER FINDINGS: None. IMPRESSION: No active disease. No significant interval change compared to the prior examination(s).
--- NOTE | 2018-06-30 15:15 | CARD ---
APPROVED REPORT Date of service: 06/29/2018 EKG Measurement Heart [id number] <Conclusion> Sinus bradycardia Left ventricular hypertrophy Abnormal ECG
== END 2018-06-29 22:43 | disposition home or self-care (01) ==
LOC: H.ER 17:56
DX: F41.9 Anxiety disorder, unspecified (principal); I10 Essential (primary) hypertension; J45.909 Unspecified asthma, uncomplicated; Z86.711 Personal history of pulmonary embolism; Z86.59 Personal history of other mental and behavioral disorders; B19.20 Unspecified viral hepatitis C without hepatic coma